=== PATIENT | female | born 1945 | race Hispanic/Latino ===

== ENCOUNTER 2020-12-28 12:37 | Inpatient (IN) | payer MEDICARE ==
[2020-12-28] MEDS ORDERED: SODIUM CHLORIDE 0.9% 1000 ML IV SOLN IV ONE (12:52)
[2020-12-28] MEDS ORDERED: cefTRIAXone/NS 2 GM/100 ML 2 GM/100 ML BAG IV ONE (12:52)
[2020-12-28] MEDS ORDERED: dexAMETHasone 4 MG/ML VIAL IV ONE (12:53)
--- NOTE | 2020-12-28 12:55 | Emergency Department Report ---
ED General Adult HPI - General Chief complaint: Weakness Stated complaint: weakness PUI?: Yes Time Seen by Provider: 12/28/20 12:51 Source: patient, EMS (Verbal report received from emergency medical services. EMS documentation not available at time of chart dictation ), RN notes reviewed, old records reviewed Mode of arrival: Stretcher Limitations: Altered Mental Status, Physical Limitation - History of Present Illness Initial comments: The patient was evaluated in the emergency department for symptoms described in the history of present illness. He/she was evaluated in the context of the global COVID-19 pandemic, which necessitated consideration that the patient might be at risk for infection with the virus that causes COVID-19. Institutional protocols and algorithms that pertain to the evaluation of patients at risk for COVID-19 are in a state of rapid change based on information released by regulatory bodies including the CDC and federal and state organizations. These policies and algorithms were followed during the patient's care in the emergency department. Please note that these policies, procedures and recommendations changed on a rapid basis. The patient is a 75-year-old female. Her past medical history includes hypertension, type 2 diabetes, COPD, stroke with residual left-sided deficit, dysarthria, history of left-sided colitis, and ileus. The patient presents to the ER today with EMS with a complaint of weakness and change in mental status. In addition, the patient was febrile in the field. The patient is awake. She denies physical pain. She follows commands. She moves her right arm and right leg. The patient denies headache, neck pain, chest pain. The patient is confused. She is not accompanied by friends or family at this time for collateral information or additional history. EMS stated to myself that they were activated because the patient was having trouble breathing, was confused and had a fever. It is not known if the patient had a COVID-19 vaccine. -: unknown - Related Data Home Medications Medication Instructions Recorded Confirmed Last Taken Aspirin [Aspirin BABY CHEW TAB] 81 mg PO QDAY 10/15/15 10/15/15 Unknown Colchicine [Colcrys] 0.6 mg PO DAILY 10/15/15 10/15/15 Unknown Lisinopril [Zestril TAB] 2.5 mg PO QDAY 10/15/15 10/15/15 Unknown traZODone [Desyrel] 100 mg PO QHS 10/15/15 10/15/15 Unknown Previous Rx's Medication Instructions Recorded Last Taken Type Insulin NPH, Human [NovoLIN N] 10 unit SQ BID #100 units 10/26/15 Unknown Rx Magnesium Oxide [Mag-Ox] 400 mg PO QDAY #30 tablet 10/26/15 Unknown Rx Ondansetron [Zofran Odt] 4 mg PO Q8H PRN 10 Days tab.rapdis 10/26/15 Unknown Rx polyethylene glycoL 3350 [Miralax 17 gm PO QDAY PRN #30 packet 10/26/15 Unknown Rx 3350] Allergies Allergy/AdvReac Type Severity Reaction Status Date / Time Penicillins Allergy Unknown Verified 12/28/20 14:59 ED Review of Systems ROS: Stated complaint: POSS STROKE Other details as noted in HPI Comment: Unobtainable due to pts medical conditions ED Past Medical Hx - Past Medical History Hx Hypertension: Yes Hx CVA: Yes Hx Congestive Heart Failure: Yes Hx Diabetes: Yes Hx COPD: Yes - Social History Smoking Status: Former Smoker - Medications Home Medications: Home Medications Medication Instructions Recorded Confirmed Last Taken Type Aspirin [Aspirin BABY CHEW TAB] 81 mg PO QDAY 10/15/15 10/15/15 Unknown History Colchicine [Colcrys] 0.6 mg PO DAILY 10/15/15 10/15/15 Unknown History Lisinopril [Zestril TAB] 2.5 mg PO QDAY 10/15/15 10/15/15 Unknown History traZODone [Desyrel] 100 mg PO QHS 10/15/15 10/15/15 Unknown History Insulin NPH, Human [NovoLIN N] 10 unit SQ BID #100 units 10/26/15 Unknown Rx Magnesium Oxide [Mag-Ox] 400 mg PO QDAY #30 tablet 10/26/15 Unknown Rx Ondansetron [Zofran Odt] 4 mg PO Q8H PRN 10 Days tab.rapdis 10/26/15 Unknown Rx polyethylene glycoL 3350 [Miralax 17 gm PO QDAY PRN #30 packet 10/26/15 Unknown Rx 3350] ED Physical Exam - General Limitations: Altered Mental Status, Physical Limitation General appearance: anxious - Head Head exam: Present: atraumatic, normocephalic - Eye Eye exam: Present: normal appearance, EOMI - ENT ENT exam: Present: normal exam, normal orophraynx, mucous membranes moist, no rmal external ear exam - Neck Neck exam: Present: normal inspection, full ROM. Absent: tenderness, meningismus - Respiratory Respiratory exam: Present: respiratory distress, rales, accessory muscle use - Cardiovascular Cardiovascular Exam: Present: normal rhythm, tachycardia, normal heart sounds. Absent: bradycardia, irregular rhythm, systolic murmur, diastolic murmur, rubs, gallop - GI/Abdominal GI/Abdominal exam: Present: soft. Absent: distended, tenderness, guarding, rebound, rigid, pulsatile mass - Extremities Exam Extremities exam: Present: normal inspection, other (2+ pulses noted in the b ilateral upper and lower extremities. There is no palpable cord. negative Homans sign. Muscular compartments are soft. The pelvis is stable.). Absent: pedal edema, calf tenderness - Back Exam Back exam: Present: normal inspection. Absent: tenderness, CVA tenderness (R), CVA tenderness (L), paraspinal tenderness, vertebral tenderness - Neurological Exam Neurological exam: Present: altered (The patient is awake to name. The patient follows commands. The patient does not have meningeal signs), other (There is n o facial droop. The tongue is midline. 4 out of 5 strength right arm and right leg. 3 out of 5 strength left arm and left leg. Sensation intact to light touch and pinch in 4 extremities) - Psychiatric Psychiatric exam: Present: anxious - Skin Skin exam: Present: warm, dry, intact, normal color. Absent: rash ED Course Vital Signs 12/28/20 12/28/20 13:01 13:31 Temperature 100.6 F H Pulse Rate 116 H 92 H Respiratory 18 32 H Rate Blood Pressure 127/77 Blood Pressure 148/69 [Right] O2 Sat by Pulse 92 96 Oximetry - Reevaluation(s) Reevaluation #1: 12/28/20 14:41 Differential diagnosis, including but not limited to: Pneumonia, urinary tract infection, bacteremia, viremia, COVID-19 Assessment and plan: Elderly 75-year-old female, ruling in for systemic inflammatory response syndrome criteria, known history of colitis, with an EMS articulated complaint of shortness of breath, weakness, fever and hypoxia. Place patient on isolation. Administer supplemental oxygen, and start antibiotics and steroids, Decadron, empirically. Obtain CT scan of the brain, and CT scan of the abdomen pelvis given history of colitis. The patient has a history of renal insufficiency. Aggressive IV fluids, straight catheter for urinalysis. Admit patient to the medical service once initial diagnostics have resulted 12/28/20 15:02 CT scan of the brain reviewed and appreciated. CT scan of the abdomen pelvis reviewed and appreciated. Urinalysis pending. Hospital physician, Dr. Libby Feliciano to admit to [facility] [place] ED Medical Decision Making - Lab Data Result diagrams: 12/28/20 13:37 12/28/20 13:37 Vital Signs 12/28/20 12/28/20 13:01 13:31 Temperature 100.6 F H Pulse Rate 116 H 92 H Respiratory 18 32 H Rate Blood Pressure 127/77 Blood Pressure 148/69 [Right] O2 Sat by Pulse 92 96 Oximetry Lab Results 12/28/20 12/28/20 12/28/20 Range/Units 13:37 13:37 13:37 WBC 5.9 (4.5-11.0) K/mm3 RBC 4.02 (3.65-5.03) M/mm3 Hgb 10.8 (10.1-14.3) gm/dl Hct 31.8 (30.3-42.9) % MCV 79 (79-97) fl MCH 27 L (28-32) pg MCHC 34 (30-34) % RDW 17.6 H (13.2-15.2) % Plt Count 261 (140-440) K/mm3 Lymph % (Auto) 5.4 L (13.4-35.0) % [place] % (Auto) 6.2 (0.0-7.3) % Eos % (Auto) 0.2 (0.0-4.3) % Baso % (Auto) 0.2 (0.0-1.8) % Lymph # (Auto) 0.3 L (1.2-5.4) K/mm3 [place] # (Auto) 0.4 (0.0-0.8) K/mm3 Eos # (Auto) 0.0 (0.0-0.4) K/mm3 Baso # (Auto) 0.0 (0.0-0.1) K/mm3 Seg Neutrophils % 88.0 H (40.0-70.0) % Seg Neutrophils # 5.2 (1.8-7.7) K/mm3 APTT 34.2 (24.2-36.6) Sec. D-Dimer 1726.49 H (0-234) ng/mlDDU Sodium 134 L (137-145) mmol/L Potassium 4.9 (3.6-5.0) mmol/L Chloride 95.6 L (98-107) mmol/L Carbon Dioxide 23 (22-30) mmol/L Anion Gap 20 mmol/L BUN 23 H (7-17) mg/dL Creatinine 0.9 (0.6-1.2) mg/dL Estimated GFR > 60 ml/min BUN/Creatinine Ratio 26 % Glucose 198 H (65-100) mg/dL Lactic Acid (0.7-2.0) mmol/L Calcium 8.6 (8.4-10.2) mg/dL Ferritin (10.0-200.0) ng/mL Total Bilirubin 0.70 (0.1-1.2) mg/dL AST 33 (5-40) units/L ALT 11 (7-56) units/L Alkaline Phosphatase 90 (35-129) units/L Troponin T < 0.010 (0.00-0.029) ng/mL Total Protein 7.5 (6.3-8.2) g/dL Albumin 3.6 L (3.9-5) g/dL Albumin/Globulin Ratio 0.9 % 12/28/20 12/28/20 Range/Units 13:37 13:37 WBC (4.5-11.0) K/mm3 RBC (3.65-5.03) M/mm3 Hgb (10.1-14.3) gm/dl Hct (30.3-42.9) % MCV (79-97) fl MCH (28-32) pg MCHC (30-34) % RDW (13.2-15.2) % Plt Count (140-440) K/mm3 Lymph % (Auto) (13.4-35.0) % [place] % (Auto) (0.0-7.3) % Eos % (Auto) (0.0-4.3) % Baso % (Auto) (0.0-1.8) % Lymph # (Auto) (1.2-5.4) K/mm3 [place] # (Auto) (0.0-0.8) K/mm3 Eos # (Auto) (0.0-0.4) K/mm3 Baso # (Auto) (0.0-0.1) K/mm3 Seg Neutrophils % (40.0-70.0) % Seg Neutrophils # (1.8-7.7) K/mm3 APTT (24.2-36.6) Sec. D-Dimer (0-234) ng/mlDDU Sodium (137-145) mmol/L Potassium (3.6-5.0) mmol/L Chloride (98-107) mmol/L Carbon Dioxide (22-30) mmol/L Anion Gap mmol/L BUN (7-17) mg/dL Creatinine (0.6-1.2) mg/dL Estimated GFR ml/min BUN/Creatinine Ratio % Glucose (65-100) mg/dL Lactic Acid 2.10 H* (0.7-2.0) mmol/L Calcium (8.4-10.2) mg/dL Ferritin 868.9 H (10.0-200.0) ng/mL Total Bilirubin (0.1-1.2) mg/dL AST (5-40) units/L ALT (7-56) units/L Alkaline Phosphatase (35-129) units/L Troponin T (0.00-0.029) ng/mL Total Protein (6.3-8.2) g/dL Albumin (3.9-5) g/dL Albumin/Globulin Ratio % - Radiology Data Radiology results: pending, report reviewed, image reviewed CHEST 1 VIEW 12/28/2020 12:30 PM INDICATION / CLINICAL INFORMATION: sepsis. COMPARISON: None available. FINDINGS: SUPPORT DEVICES: None. HEART / MEDIASTINUM: No significant abnormality. LUNGS / PLEURA: No significant pulmonary or pleural abnormality. No pneumothorax. ADDITIONAL FINDINGS: No significant additional findings. IMPRESSION: 1. No acute findings. Signer Name: Lorenzo Carrera MD Signed: 12/28/2020 12:53 PM Workstation Name: [id number] CT BRAIN: 12/28/2020 INDICATION / CLINICAL INFORMATION: ams. COMPARISON: 10/24/2015 FINDINGS: BRAIN/INTRACRANIAL STRUCTURES: Unenhanced CT images of the brain demonstrate no evidence of acute abnormality. Ventricles and sulci are prominent in size, consistent with prominent age-related atrophic change. Extensive chronic white matter hypoattenuation is present in the cerebral hemispheric white matter, consistent with chronic small vessel ischemic change. There is no evidence of acute ischemic injury, hemorrhage, or mass. Focal periventricular lacunar changes are present in the anterior right thalamus, associated with some dystrophic calcification. There is also some dystrophic calcification noted in the floor of the fourth ventricle. Atherosclerotic vascular calcifications are also noted. EXTRACRANIAL STRUCTURES: Un remarkable. IMPRESSION: No acute abnormality. Chronic and age-related changes. No significant change when compared to the prior exam. All CT scans at this location are performed using dose reduction to ALARA by means of automated exposure control. Signer Name: Horacio Blanco MD Signed: 12/28/2020 1:45 PM Workstation Name: [id number] CT ABDOMEN AND PELVIS WITHOUT IV CONTRAST INDICATION: Sepsis, weakness, altered mental. COMPARISON: None available. TECHNIQUE: All CT scans at this facility use dose modulation, automated exposure control, iterative reconstruction or weight based dosing, when appropriate, to reduce radiation dose to as low as reasonably achievable. FINDINGS: Lung Bases: Reticular opacities in the dependent lower lungs may be due to scarring or interstitial lung disease. No acute consolidation is seen. Skeletal System: No acute abnormality. ABDOMEN: Liver: No significant abnormality. Gallbladder: There are several punctate stones layering in the gallbladder. Bile Ducts: No significant abnormality. Pancreas: No significant abnormality. Spleen: No significant abnormality. Adrenals: No significant abnormality. Right Kidney: There is postsurgical change along the lateral cortex of the upper pole. There is a cyst in the mid lateral cortex. No acute finding. Left Kidney: In addition to a simple cyst at the upper pole, there are 2 hyperdense lesions within the mid cortex (axial series 2 images 76-77. The larger, more central measures 1.2 cm. Upper GI tract: No significant abnormality. Lymph Nodes: No significant adenopathy. Aorta: No significant abnormality. Additional Findings: No significant abnormality. PELVIS: Colon: No acute abnormality. Constipation is noted. Urinary Bladder and Distal Ureters: No significant abnormality. Appendix: Not visualized. Lymph Nodes: No significant adenopathy. Additional Findings: Calcified uterine fibroids are noted. IMPRESSION: 1. Within the limitations of non contrast technique, no acute process in the abdomen or pelvis. 2. In addition to simple cysts bilaterally, there are 2 hyperdense lesions within the left kidney. These could be proteinaceous/atypical cysts. Follow-up ultrasound would be useful to confirm that these are cystic and not solid. Signer Name: Mack Villegas MD Signed: 12/28/2020 1:48 PM Workstation Name: [id number] Critical care attestation.: If time is entered above; I have spent that time in minutes in the direct care of this critically ill patient, excluding procedure time. ED Disposition Clinical Impression: Systemic inflammatory response syndrome (SIRS), Suspected 2019 novel coronavirus infection, History of stroke Disposition: ADMITTED INPATIENT Is pt being admited?: Yes Does the pt Need Aspirin: No Condition: Fair
[2020-12-28] MEDS: ACETAMINOPHEN 325 MG TAB PO STA ×2 (13:45→13:50)
--- NOTE | 2020-12-28 13:57 | XRay Report ---
CHEST 1 VIEW 12/28/2020 12:30 PM INDICATION / CLINICAL INFORMATION: sepsis. COMPARISON: None available. FINDINGS: SUPPORT DEVICES: None. HEART / MEDIASTINUM: No significant abnormality. LUNGS / PLEURA: No significant pulmonary or pleural abnormality. No pneumothorax. ADDITIONAL FINDINGS: No significant additional findings. IMPRESSION: 1. No acute findings. Signer Name: Lorenzo Carrera MD Signed: 12/28/2020 1:53 PM Workstation Name: [id number]
[2020-12-28 14:08] LABS: Basophils % (Auto) 0.2 % (0.0-1.8); Eosinophils % (Auto) 0.2 % (0.0-4.3); Hematocrit 31.8 % (30.3-42.9); Hemoglobin 10.8 gm/dl (10.1-14.3); Lymphocytes # (Auto) 0.3 K/mm3 (1.2-5.4); Lymphocytes % (Auto) 5.4 % (13.4-35.0); Mean Corpuscular HGB Conc 34 % (30-34); Mean Corpuscular Volume 79 fl (79-97); Monocytes # (Auto) 0.4 K/mm3 (0.0-0.8); Monocytes % (Auto) 6.2 % (0.0-7.3); Platelet Count 261 K/mm3 (140-440); Red Blood Count 4.02 M/mm3 (3.65-5.03); Red Cell Distribution Width 17.6 % (13.2-15.2)
[2020-12-28 14:17] LABS: Partial Thromboplastin Time 34.2 Sec. (24.2-36.6)
[2020-12-28 14:27] LABS: Alanine Aminotransferase 11 units/L (7-56); Albumin 3.6 g/dL (3.9-5); BUN/Creatinine Ratio 26; Blood Urea Nitrogen 23 mg/dL (7-17); Calcium 8.6 mg/dL (8.4-10.2); Hemolysis Index 0
[2020-12-28] MEDS ORDERED: ACETAMINOPHEN 650 MG RECT SUPP PR ONE (14:38)
--- NOTE | 2020-12-28 14:50 | Cat Scan Report ---
CT BRAIN: 12/28/2020 INDICATION / CLINICAL INFORMATION: ams. COMPARISON: 10/24/2015 FINDINGS: BRAIN/INTRACRANIAL STRUCTURES: Unenhanced CT images of the brain demonstrate no evidence of acute abn ormality. Ventricles and sulci are prominent in size, consistent with prominent age-related atrophic change. Ex tensive chronic white matter hypoattenuation is present in the cerebral hemispheric white matter, con sistent with chronic small vessel ischemic change. There is no evidence of acute ischemic injury, hemorrhage, or mass. Focal periventricular lacunar amanda nges are present in the anterior right thalamus, associated with some dystrophic calcification. There is also some dystrophic calcification noted in the floor of the fourth ventricle. Atherosclerotic vascular calcifications are also noted. EXTRACRANIAL STRUCTURES: Unremarkable. IMPRESSION: No acute abnormality. Chronic and age-related changes. No significant change when compared to the prior exam. All CT scans at this location are performed using dose reduction to ALARA by means of automated expos ure control. Signer Name: Horacio Blanco MD Signed: 12/28/2020 2:45 PM Workstation Name: [id number]
--- NOTE | 2020-12-28 14:52 | Cat Scan Report ---
CT ABDOMEN AND PELVIS WITHOUT IV CONTRAST INDICATION: Sepsis, weakness, altered mental. COMPARISON: None available. TECHNIQUE: All CT scans at this facility use dose modulation, automated exposure control, iterative reconstructi on or weight based dosing, when appropriate, to reduce radiation dose to as low as reasonably achieva ble. FINDINGS: Lung Bases: Reticular opacities in the dependent lower lungs may be due to scarring or interstitial l yonatan disease. No acute consolidation is seen. Skeletal System: No acute abnormality. ABDOMEN: Liver: No significant abnormality. Gallbladder: There are several punctate stones layering in the gallbladder. Bile Ducts: No significant abnormality. Pancreas: No significant abnormality. Spleen: No significant abnormality. Adrenals: No significant abnormality. Right Kidney: There is postsurgical change along the lateral cortex of the upper pole. There is a cys t in the mid lateral cortex. No acute finding. Left Kidney: In addition to a simple cyst at the upper pole, there are 2 hyperdense lesions within th e mid cortex (axial series 2 images 76-77. The larger, more central measures 1.2 cm. Upper GI tract: No significant abnormality. Lymph Nodes: No significant adenopathy. Aorta: No significant abnormality. Additional Findings: No significant abnormality. PELVIS: Colon: No acute abnormality. Constipation is noted. Urinary Bladder and Distal Ureters: No significant abnormality. Appendix: Not visualized. Lymph Nodes: No significant adenopathy. Additional Findings: Calcified uterine fibroids are noted. IMPRESSION: 1. Within the limitations of non contrast technique, no acute process in the abdomen or pelvis. 2. In addition to simple cysts bilaterally, there are 2 hyperdense lesions within the left kidney. T hese could be proteinaceous/atypical cysts. Follow-up ultrasound would be useful to confirm that thes e are cystic and not solid. Signer Name: Mack Villegas MD Signed: 12/28/2020 2:48 PM Workstation Name: [id number]
[2020-12-28 14:59] LABS: C-Reactive Protein 21.4 mg/dL (0.00-1.30)
[2020-12-28 19:48] LABS: Bilirubin,Urine NEG (Negative); Blood,Urine SM (Negative); Color,Urine Yellow (Yellow); Mucus,Urine FEW /HPF; Urobilinogen,Urine < 2.0 mg/dL (<2.0)
[2020-12-28] MEDS ORDERED: ONDANSETRON 4 MG/2 ML INJ IV PRN (22:19)
[2020-12-28] MEDS ORDERED: ACETAMINOPHEN 325 MG TAB PO PRN (22:19)
[2020-12-28] MEDS ORDERED: MORPHINE 2 MG/1 ML INJ IV PRN (22:22)
[2020-12-28] MEDS ORDERED: METOCLOPRAMIDE 10 MG/2 ML INJ IV PRN (22:22)
[2020-12-28] MEDS ORDERED: HYDROmorphone 1 MG/1 ML INJ IV PRN (22:22)
[2020-12-28] MEDS ORDERED: SODIUM CHLORIDE 0.9% 1000 ML 1,000 ML IV SCH (22:30)
--- NOTE | 2020-12-28 22:40 | History and Physical Report ---
History of Present Illness Date of examination: 12/28/20 Date of admission: 12/28/20 15:03 Chief complaint: Altered sensorium for 1 day History of present illness: 75-year-old female with history of insulin-dependent diabetes, hypertension and early dementia sent in by halfway for change in mental status and generalized weakness. Patient was apparently febrile in the field. In the emergency room patient is awake and alert x2. Follows commands moves her both lower extremities and upper extremities. Patient has slurred speech but otherwise answering questions appropriately. Patient is oriented to person and place but not time - Past Medical History --Hypertension: Yes --CVA: Yes --Congestive Heart Failure: Yes --Diabetes: Yes --COPD: Yes - Past surgical history --unknown --Patient unable to elaborate - Social History y Smoking Status: Former Smoker -Family history --unknown --Patient unable to elaborate - Medications Home Medications: Home Medications Medication Instructions Recorded Confirmed Last Taken Type Aspirin [Aspirin BABY CHEW TAB] 81 mg PO QDAY 10/15/15 10/15/15 Unknown History Colchicine [Colcrys] 0.6 mg PO DAILY 10/15/15 10/15/15 Unknown History Lisinopril [Zestril TAB] 2.5 mg PO QDAY 10/15/15 10/15/15 Unknown History traZODone [Desyrel] 100 mg PO QHS 10/15/15 10/15/15 Unknown History Insulin NPH, Human [NovoLIN N] 10 unit SQ BID #100 units 10/26/15 Unknown Rx Magnesium Oxide [Mag-Ox] 400 mg PO QDAY #30 tablet 10/26/15 Unknown Rx Ondansetron [Zofran Odt] 4 mg PO Q8H PRN 10 Days tab.rapdis 10/26/15 Unknown Rx polyethylene glycoL 3350 [Miralax 17 gm PO QDAY PRN #30 packet 10/26/15 Unknown Rx 3350] Review of Systems ROS: Stated complaint: POSS STROKE Other details as noted in HPI Comment: Unobtainable due to pts medical conditions Medications and Allergies Allergies Allergy/AdvReac Type Severity Reaction Status Date / Time Penicillins Allergy Unknown Verified 12/28/20 14:59 Home Medications Medication Instructions Recorded Confirmed Last Taken Type Aspirin [Aspirin BABY CHEW TAB] 81 mg PO QDAY 10/15/15 10/15/15 Unknown History Colchicine [Colcrys] 0.6 mg PO DAILY 10/15/15 10/15/15 Unknown History Lisinopril [Zestril TAB] 2.5 mg PO QDAY 10/15/15 10/15/15 Unknown History traZODone [Desyrel] 100 mg PO QHS 10/15/15 10/15/15 Unknown History Insulin NPH, Human [NovoLIN N] 10 unit SQ BID #100 units 10/26/15 Unknown Rx Magnesium Oxide [Mag-Ox] 400 mg PO QDAY #30 tablet 10/26/15 Unknown Rx Ondansetron [Zofran Odt] 4 mg PO Q8H PRN 10 Days tab.rapdis 10/26/15 Unknown Rx polyethylene glycoL 3350 [Miralax 17 gm PO QDAY PRN #30 packet 10/26/15 Unknown Rx 3350] Exam - Constitutional Vitals: Temp Pulse Resp BP Pulse Ox 97.9 F 72 24 133/71 98 12/28/20 19:12 12/28/20 21:08 12/28/20 21:08 12/28/20 21:08 12/28/20 21:08 General appearance: Present: no acute distress, well-nourished - EENT Eyes: Present: PERRL ENT: hearing intact, clear oral mucosa - Neck Neck: Present: supple, normal ROM - Respiratory Respiratory effort: normal Respiratory: bilateral: CTA - Cardiovascular Heart rate: 78 Rhythm: regular Heart Sounds: Present: S1 & S2. Absent: rub, click - Extremities Extremities: pulses symmetrical, No edema Peripheral Pulses: within normal limits - Abdominal General gastrointestinal: Present: soft, non-tender, non-distended, normal bowel sounds Female genitourinary: Present: normal - Integumentary Integumentary: Present: clear, warm, dry - Musculoskeletal Musculoskeletal: left sided weakness, other (Dysarthric) - Psychiatric Psychiatric: appropriate mood/affect, intact judgment & insight - Neurologic Neurologic: CNII-XII intact, focal deficits (Left-sided weakness present) - Allied Health Allied health notes reviewed: nursing, case management HEART Score - HEART Score History: Slightly suspicious Risk factors: 1-2 risk factors Troponin: Troponin T < 0.010 ng/mL (0.00-0.029) 12/28/20 13:37 Troponin: < normal limit - Critical Actions Critical Actions: 0-3 pts:0.9-1.7%risk of adverse cardiac event.Candidate for discharge Results - Labs CBC & Chem 7: 12/29/20 05:37 12/29/20 05:37 Labs: Laboratory Last Values WBC 5.9 K/mm3 (4.5-11.0) 12/28/20 13:37 RBC 4.02 M/mm3 (3.65-5.03) 12/28/20 13:37 Hgb 10.8 gm/dl (10.1-14.3) 12/28/20 13:37 Hct 31.8 % (30.3-42.9) 12/28/20 13:37 MCV 79 fl (79-97) 12/28/20 13:37 MCH 27 pg (28-32) L 12/28/20 13:37 MCHC 34 % (30-34) 12/28/20 13:37 RDW 17.6 % (13.2-15.2) H 12/28/20 13:37 Plt Count 261 K/mm3 (140-440) 12/28/20 13:37 Lymph % (Auto) 5.4 % (13.4-35.0) L 12/28/20 13:37 [place] % (Auto) 6.2 % (0.0-7.3) 12/28/20 13:37 Eos % (Auto) 0.2 % (0.0-4.3) 12/28/20 13:37 Baso % (Auto) 0.2 % (0.0-1.8) 12/28/20 13:37 Lymph # (Auto) 0.3 K/mm3 (1.2-5.4) L 12/28/20 13:37 [place] # (Auto) 0.4 K/mm3 (0.0-0.8) 12/28/20 13:37 Eos # (Auto) 0.0 K/mm3 (0.0-0.4) 12/28/20 13:37 Baso # (Auto) 0.0 K/mm3 (0.0-0.1) 12/28/20 13:37 Seg Neutrophils % 88.0 % (40.0-70.0) H 12/28/20 13:37 Seg Neutrophils # 5.2 K/mm3 (1.8-7.7) 12/28/20 13:37 APTT 34.2 Sec. (24.2-36.6) 12/28/20 13:37 D-Dimer 1726.49 ng/mlDDU (0-234) H 12/28/20 13:37 Sodium 134 mmol/L (137-145) L 12/28/20 13:37 Potassium 4.9 mmol/L (3.6-5.0) 12/28/20 13:37 Chloride 95.6 mmol/L (98-107) L 12/28/20 13:37 Carbon Dioxide 23 mmol/L (22-30) 12/28/20 13:37 Anion Gap 20 mmol/L 12/28/20 13:37 BUN 23 mg/dL (7-17) H 12/28/20 13:37 Creatinine 0.9 mg/dL (0.6-1.2) 12/28/20 13:37 Estimated GFR > 60 ml/min 12/28/20 13:37 BUN/Creatinine Ratio 26 % 12/28/20 13:37 Glucose 198 mg/dL (65-100) H 12/28/20 13:37 Glucose 203 mg/dL (65-100) H 12/28/20 13:37 POC Glucose 303 mg/dL (70-105) H 12/28/20 22:07 Lactic Acid 0.90 mmol/L (0.7-2.0) 12/28/20 16:02 Calcium 8.6 mg/dL (8.4-10.2) 12/28/20 13:37 Ferritin 868.9 ng/mL (10.0-200.0) H 12/28/20 13:37 Total Bilirubin 0.70 mg/dL (0.1-1.2) 12/28/20 13:37 AST 33 units/L (5-40) 12/28/20 13:37 ALT 11 units/L (7-56) 12/28/20 13:37 Alkaline Phosphatase 90 units/L (35-129) 12/28/20 13:37 Lactate Dehydrogenase 330 units/L (91-180) H 12/28/20 13:37 Troponin T < 0.010 ng/mL (0.00-0.029) 12/28/20 13:37 C-Reactive Protein 21.40 mg/dL (0.00-1.30) H 12/28/20 13:37 Total Protein 7.5 g/dL (6.3-8.2) 12/28/20 13:37 Albumin 3.6 g/dL (3.9-5) L 12/28/20 13:37 Albumin/Globulin Ratio 0.9 % 12/28/20 13:37 Procalcitonin 0.18 ng/mL (<0.15) 12/28/20 13:37 Urine Color Yellow (Yellow) 12/28/20 Unknown Urine Turbidity Clear (Clear) 12/28/20 Unknown Urine pH 5.0 (5.0-7.0) 12/28/20 Unknown Ur Specific [place] 1.012 (1.003-1.030) 12/28/20 Unknown Urine Protein 30 mg/dl mg/dL (Negative) 12/28/20 Unknown Urine Glucose (UA) 50 mg/dL (Negative) 12/28/20 Unknown Urine Ketones 20 mg/dL (Negative) 12/28/20 Unknown Urine Blood Sm (Negative) 12/28/20 Unknown Urine Nitrite Neg (Negative) 12/28/20 Unknown Urine Bilirubin Neg (Negative) 12/28/20 Unknown Urine Urobilinogen < 2.0 mg/dL (<2.0) 12/28/20 Unknown Ur Leukocyte Esterase Neg (Negative) 12/28/20 Unknown Urine WBC (Auto) 4.0 /HPF (0.0-6.0) 12/28/20 Unknown Urine RBC (Auto) 1.0 /HPF (0.0-6.0) 12/28/20 Unknown Urine Mucus Few /HPF 12/28/20 Unknown Short CBC 12/28/20 12/29/20 Range/Units 13:37 05:37 WBC 5.9 4.3 L (4.5-11.0) K/mm3 Hgb 10.8 10.7 (10.1-14.3) gm/dl Hct 31.8 32.4 (30.3-42.9) % Plt Count 261 205 (140-440) K/mm3 BMP 12/28/20 12/28/20 12/29/20 13:37 13:37 05:37 Sodium 134 L 135 L Potassium 4.9 4.6 Chloride 95.6 L 101.1 Carbon Dioxide 23 22 BUN 23 H 19 H Creatinine 0.9 0.8 Glucose 198 H 203 H 302 H Calcium 8.6 8.2 L Cardiac Enzymes 12/28/20 Range/Units 13:37 Troponin T < 0.010 (0.00-0.029) ng/mL Liver Function 12/28/20 12/29/20 Range/Units 13:37 05:37 Total Bilirubin 0.70 0.40 (0.1-1.2) mg/dL AST 33 25 (5-40) units/L ALT 11 11 (7-56) units/L Alkaline Phosphatase 90 92 (35-129) units/L Albumin 3.6 L 3.3 L (3.9-5) g/dL Urine 12/28/20 Range/Units Unknown Urine Color Yellow (Yellow) Urine pH 5.0 (5.0-7.0) Ur Specific [place] 1.012 (1.003-1.030) Urine Protein 30 mg/dl (Negative) mg/dL Urine Glucose (UA) 50 (Negative) mg/dL Microbiology: Microbiology 12/28/20 13:37 Peripheral/Venous Blood Culture - Preliminary Culture in Progress 12/28/20 13:37 Peripheral/Venous Blood Culture - Preliminary Culture in Progress - Imaging and Cardiology Chest x-ray: report reviewed CT scan - abdomen: report reviewed CT scan - chest: report reviewed Imaging and Cardiology: Chest x-ray No acute findings CT head No acute findings CT abdomen no acute abnormalities No acute findings Assessment and Plan Advance Directives: Yes (Full code) VTE prophylaxis?: Chemical Plan of care discussed with patient/family: Yes - Patient Problems (1) Acute encephalopathy Current Visit: Yes Status: Acute Plan to address problem: Probably secondary to fever and systemic inflammatory response syndrome Patient has dysarthria but no focal deficits except for residual left-sided weakness Stroke unlikely IV fluids Covid to be ruled out Neuro consult requested MR brain requested (2) Systemic inflammatory response syndrome (SIRS) Current Visit: Yes Status: Acute Plan to address problem: All inflammatory markers are elevated IV Decadron initiated No antibiotics initiated Coronavirus PCR to be excluded (3) Suspected 2019 novel coronavirus infection Current Visit: Yes Status: Acute Plan to address problem: Check coronavirus PCR ID consult if necessary (4) Hypertension Current Visit: Yes Status: Chronic Qualifiers: Hypertension type: primary hypertension Qualified Code(s): I10 - Essential (primary) hypertension Plan to address problem: Continue antihypertensives and adjust medications (5) T2DM (type 2 diabetes mellitus) Current Visit: Yes Status: Acute Qualifiers: Diabetes mellitus chcf insulin use: with termite treater use Plan to address problem: Continue home insulin and coverage Check hemoglobin A1c (6) History of stroke Current Visit: Yes Status: Chronic Plan to address problem: Supportive care and physical therapy (7) DVT prophylaxis Current Visit: Yes Status: Acute Plan to address problem: On anticoagulation and GI prophylaxis
[2020-12-28] MEDS ORDERED: DEXTROSE 50% IN WATER (25GM) 50 ML SYRINGE IV PRN (22:48)
[2020-12-28] MEDS ORDERED: AZITHROMYCIN/NS 500 MG/250 ML 500 MG/250 ML BAG IV SCH (23:00)
[2020-12-29 06:16] LABS: Basophils % (Auto) 0.4 % (0.0-1.8); Eosinophils % (Auto) 0.8 % (0.0-4.3); Hematocrit 32.4 % (30.3-42.9); Hemoglobin 10.7 gm/dl (10.1-14.3); Lymphocytes # (Auto) 0.4 K/mm3 (1.2-5.4); Lymphocytes % (Auto) 9.5 % (13.4-35.0); Mean Corpuscular HGB Conc 33 % (30-34); Mean Corpuscular Volume 80 fl (79-97); Monocytes # (Auto) 0.4 K/mm3 (0.0-0.8); Monocytes % (Auto) 9.8 % (0.0-7.3); Platelet Count 205 K/mm3 (140-440); Red Blood Count 4.04 M/mm3 (3.65-5.03); Red Cell Distribution Width 17.2 % (13.2-15.2)
[2020-12-29 06:36] LABS: Alanine Aminotransferase 11 units/L (7-56); Albumin 3.3 g/dL (3.9-5); BUN/Creatinine Ratio 24; Blood Urea Nitrogen 19 mg/dL (7-17); Calcium 8.2 mg/dL (8.4-10.2); Hemolysis Index 0
[2020-12-29] MEDS ORDERED: INSULIN NPH, HUMAN 100 UNIT/1 ML SUB-Q SCH (08:00)
[2020-12-29] MEDS: INSULIN LISPRO 100 UNIT/ML SUB-Q SCH ×3 (08:17→16:22)
[2020-12-29] MEDS ORDERED: dexAMETHasone 4 MG/ML VIAL IV SCH (09:00)
--- NOTE | 2020-12-29 09:05 | Consultation ---
History of Present Illness Consult date: 12/29/20 Reason for Consult: altered mentation for one day History of present illness: Altered sensorium for 1 day History of present illness: 75-year-old female with history of insulin-dependent diabetes, hypertension and early dementia [facility] in mental status and generalized weakness. Patient was apparently febrile in the field. In the emergency room patient is awake and alert x2. Follows commands moves her both lower extremities and upper extremities. Patient has slurred speech but otherwise answering questions appropriately. Patient is oriented to person and place but not time In ER CT brain is unremarkable inflammatory markers are elevated [ lactic acid,feritin,D-Dimmer,CRP] COVID-19 titer is pending - Past Medical History --Hypertension: Yes --CVA: Yes --Congestive Heart Failure: Yes --Diabetes: Yes --COPD: Yes - Past surgical history --unknown --Patient unable to elaborate - Social History y Smoking Status: Former Smoker -Family history --unknown --Patient unable to elaborate - Medications Home Medications: Home Medications Medication Instructions Recorded Confirmed Last Taken Type Aspirin [Aspirin BABY CHEW TAB] 81 mg PO QDAY 10/15/15 10/15/15 Unknown History Colchicine [Colcrys] 0.6 mg PO DAILY 10/15/15 10/15/15 Unknown History Lisinopril [Zestril TAB] 2.5 mg PO QDAY 10/15/15 10/15/15 Unknown History traZODone [Desyrel] 100 mg PO QHS 10/15/15 10/15/15 Unknown History Insulin NPH, Human [NovoLIN N] 10 unit SQ BID #100 units 10/26/15 Unknown Rx Magnesium Oxide [Mag-Ox] 400 mg PO QDAY #30 tablet 10/26/15 Unknown Rx Ondansetron [Zofran Odt] 4 mg PO Q8H PRN 10 Days tab.rapdis 10/26/15 Unknown Rx polyethylene glycoL 3350 [Miralax 17 gm PO QDAY PRN #30 packet 10/26/15 Unknown Rx 3350] Review of Systems ROS: Stated complaint: POSS STROKE Other details as noted in HPI Comment: Unobtainable due to pts medical conditions Medications and Allergies Allergies Allergy/AdvReac Type Severity Reaction Status Date / Time Penicillins Allergy Unknown Verified 12/28/20 14:59 Home Medications Medication Instructions Recorded Confirmed Last Taken Type Aspirin [Aspirin BABY CHEW TAB] 81 mg PO QDAY 10/15/15 10/15/15 Unknown History Colchicine [Colcrys] 0.6 mg PO DAILY 10/15/15 10/15/15 Unknown History Lisinopril [Zestril TAB] 2.5 mg PO QDAY 10/15/15 10/15/15 Unknown History traZODone [Desyrel] 100 mg PO QHS 10/15/15 10/15/15 Unknown History Insulin NPH, Human [NovoLIN N] 10 unit SQ BID #100 units 10/26/15 Unknown Rx Magnesium Oxide [Mag-Ox] 400 mg PO QDAY #30 tablet 10/26/15 Unknown Rx Ondansetron [Zofran Odt] 4 mg PO Q8H PRN 10 Days tab.rapdis 10/26/15 Unknown Rx polyethylene glycoL 3350 [Miralax 17 gm PO QDAY PRN #30 packet 10/26/15 Unknown Rx 3350] Medications and Allergies Allergies Allergy/AdvReac Type Severity Reaction Status Date / Time Penicillins Allergy Unknown Verified 12/28/20 14:59 Home Medications Medication Instructions Recorded Confirmed Last Taken Type Aspirin [Aspirin BABY CHEW TAB] 81 mg PO QDAY 10/15/15 10/15/15 Unknown History Colchicine [Colcrys] 0.6 mg PO DAILY 10/15/15 10/15/15 Unknown History Lisinopril [Zestril TAB] 2.5 mg PO QDAY 10/15/15 10/15/15 Unknown History traZODone [Desyrel] 100 mg PO QHS 10/15/15 10/15/15 Unknown History Insulin NPH, Human [NovoLIN N] 10 unit SQ BID #100 units 10/26/15 Unknown Rx Magnesium Oxide [Mag-Ox] 400 mg PO QDAY #30 tablet 10/26/15 Unknown Rx Ondansetron [Zofran Odt] 4 mg PO Q8H PRN 10 Days tab.rapdis 10/26/15 Unknown Rx polyethylene glycoL 3350 [Miralax 17 gm PO QDAY PRN #30 packet 10/26/15 Unknown Rx 3350] Active Meds: Active Medications Acetaminophen (Acetaminophen 325 Mg Tab) 650 mg PO Q4H PRN PRN Reason: Pain MILD(1-3)/Fever >100.5/[place] Aspirin (Aspirin 81 Mg Tab Chew) 81 mg PO QDAY [facility] Dexamethasone (Dexamethasone 4 Mg/Ml Vial) 8 mg IV Q24HR [facility] Stop: 01/06/21 10:01 Dextrose (Dextrose 50% In Water (25gm) 50 Ml Syringe) 0 ml IV Q30MIN PRN; Protocol PRN Reason: Hypoglycemia Famotidine (Famotidine 20 Mg/2 Ml Inj) 20 mg IV BID [facility] Heparin Sodium (Porcine) (Heparin 5,000 Unit/1 Ml Vial) 5,000 unit SUB-Q Q12HR [facility] Hydromorphone HCl (Hydromorphone 1 Mg/1 Ml Inj) 0.5 mg IV Q3H PRN PRN Reason: Pain , Severe (7-10) Sodium Chloride (Nacl 0.9% 1000 Ml) 1,000 mls @ 100 mls/hr IV DIRECT [facility] Stop: 12/29/20 10:00 Azithromycin (Zithromax/Ns) 500 mg in 250 mls @ 250 mls/hr IV Q24HR [facility] Stop: 01/01/21 10:59 Last Admin: 12/28/20 23:14 Dose: 250 mls/hr Documented by: Ceftriaxone Sodium (Rocephin/Ns 2 Gm/100 Ml) 2 gm in 100 mls @ 200 mls/hr IV Q24HR [facility]; Protocol Stop: 01/01/21 10:29 Insulin Human Lispro (Insulin Lispro 100 Unit/Ml) 0 unit SUB-Q ACHS [facility]; Protocol Last Admin: 12/29/20 08:17 Dose: 3 unit Documented by: Lisinopril (Lisinopril 5 Mg Tab) 2.5 mg PO QDAY [facility] Magnesium Oxide (Magnesium Oxide 400 Mg Tab) 400 mg PO QDAY [facility] Metoclopramide HCl (Metoclopramide 10 Mg/2 Ml Inj) 10 mg IV Q6H PRN PRN Reason: Nausea And Vomiting Morphine Sulfate (Morphine 2 Mg/1 Ml Inj) 2 mg IV Q4H PRN PRN Reason: Pain, Moderate (4-6) Ondansetron HCl (Ondansetron 4 Mg/2 Ml Inj) 4 mg IV Q8H PRN PRN Reason: Nausea And Vomiting Sodium Chloride (Sodium Chloride 0.9% 10 Ml Flush Syringe) 10 ml IV BID [facility] Last Admin: 12/28/20 23:10 Dose: 10 ml Documented by: Sodium Chloride (Sodium Chloride 0.9% 10 Ml Flush Syringe) 10 ml IV PRN PRN PRN Reason: LINE FLUSH Last Admin: 12/28/20 23:10 Dose: 10 ml Documented by: Trazodone HCl (Trazodone 100 Mg Tab) 100 mg PO QHS [facility] Physical Examination - Vital Signs Vital Signs: Vital Signs Temp Pulse Resp BP Pulse Ox 100.6 F H 116 H 18 148/69 92 12/28/20 13:01 12/28/20 13:01 12/28/20 13:01 12/28/20 13:01 12/28/20 13:01 - Constitutional General appearance: comfortable - EENT EENT: Present: PERRL, mucous membranes moist - Respiratory Respiratory: Present: chest non-tender, lungs clear, rhonchi - Cardiovascular Cardiovascular: Present: regular rate, normal S1, normal S2 Extremities: Present: no peripheral edema bilatateraly, no clubbing, cyanosis - Gastrointestinal Gastrointestinal: Present: normoactive bowel sounds - Integumentary Integumentary: Present: normal - Neurologic Cranial nerve examination: anosmic, PERRL, EOMI, intact Speech examination: intact Sensorimotor examination: intact Detailed motor examination: grossly full strength in - Psychiatric Psychiatric: Present: other (she is disorieted to place and date not remmeber her age or birthdate.) - Level of Consciousness 1a. Level of Consciousness: alert/keenly responsive - LOC Questions 1b. LOC Questions: answers no questions correctly - LOC Command 1c. LOC Commands: performs tasks correctly - Best Gaze 2. Best Gaze: normal - Visual 3. Visual: no visual loss - Facial Palsy 4. Facial Palsy: normal symmetrical movement - Motor Arm 5a. Motor Arm Left: no drift 5b. Motor Arm Right: no drift - Motor Leg 6a. Motor Leg Left: no drift 6b. Motor Leg Right: no drift - Limb Ataxia 7. Limb Ataxia: absent - Sensory 8. Sensory: normal - Best Language 9. Best Language: no aphasia - Dysarthria 10. Dysarthria: normal - Extinction and Inattention 11. Extinction/Inattention: no abnormality - Scoring Total Score: 2 Stroke Severity: Minor Stroke Results - Laboratory Findings CBC and BMP: 12/29/20 05:37 12/29/20 05:37 Abnormal Lab Findings: Abnormal Labs 12/28/20 12/28/20 12/28/20 13:37 13:37 13:37 WBC MCH 27 L RDW 17.6 H Lymph % (Auto) 5.4 L [place] % (Auto) Lymph # (Auto) 0.3 L Seg Neutrophils % 88.0 H D-Dimer 1726.49 H Sodium 134 L Chloride 95.6 L BUN 23 H Glucose 198 H POC Glucose Lactic Acid Calcium Ferritin Lactate Dehydrogenase C-Reactive Protein Albumin 3.6 L 12/28/20 12/28/20 12/28/20 13:37 13:37 13:37 WBC MCH RDW Lymph % (Auto) [place] % (Auto) Lymph # (Auto) Seg Neutrophils % D-Dimer Sodium Chloride BUN Glucose 203 H POC Glucose Lactic Acid 2.10 H* Calcium Ferritin 868.9 H Lactate Dehydrogenase 330 H C-Reactive Protein 21.40 H Albumin 12/28/20 12/29/20 12/29/20 22:07 05:37 05:37 WBC 4.3 L MCH 27 L RDW 17.2 H Lymph % (Auto) 9.5 L [place] % (Auto) 9.8 H Lymph # (Auto) 0.4 L Seg Neutrophils % 79.5 H D-Dimer Sodium 135 L Chloride BUN 19 H Glucose 302 H POC Glucose 303 H Lactic Acid Calcium 8.2 L Ferritin Lactate Dehydrogenase C-Reactive Protein Albumin 3.3 L 12/29/20 12/29/20 06:32 08:05 WBC MCH RDW Lymph % (Auto) [place] % (Auto) Lymph # (Auto) Seg Neutrophils % D-Dimer Sodium Chloride BUN Glucose POC Glucose 263 H 254 H Lactic Acid Calcium Ferritin Lactate Dehydrogenase C-Reactive Protein Albumin Assessment and Plan Assessment and Plan Advance Directives: Yes (Full code) VTE prophylaxis?: Chemical Plan of care discussed with patient/family: Yes - Patient Problems # Acute encephalopathy Probably secondary to fever and systemic inflammatory response syndrome Patient had no focal deficits -Ct Brain is unremarkable -MRI brain is pending -IV fluids -Covid to be ruled out -ASA and SQ heparine # Systemic inflammatory response syndrome (SIRS) -All inflammatory markers are elevated -IV Decadron initiated -No antibiotics initiated -Coronavirus PCR is pending # Suspected 2019 novel coronavirus infection -Check coronavirus PCR -ID consult if necessary # Hypertension -Continue antihypertensives and adjust medications # T2DM (type 2 diabetes mellitus) -Continue home insulin and coverage -Check hemoglobin A1c (6) History of stroke -Supportive care and physical therapy - Maintain ASA 325 mg daily and Lipitor 40 mg -LDL, and A1C are pending -PT/ST evaluate. -MRI brain w/o Gd # DVT prophylaxis -On anticoagulation and GI prophylaxis will follow
[2020-12-29] MEDS ORDERED: FAMOTIDINE 20 MG/2 ML INJ IV SCH (10:00)
[2020-12-29] MEDS ORDERED: cefTRIAXone/NS 2 GM/100 ML 2 GM/100 ML BAG IV SCH ×2 (10:00→22:00)
--- NOTE | 2020-12-29 14:27 | Progress Note ---
Assessment and Plan -- Acute encephalopathy Probably secondary to COVID-19 infection Patient has dysarthria but no focal deficits except for residual left-sided weakness Stroke unlikely, IV fluids Initiated Covid protocol Neuro consult requested MR brain requested -- Systemic inflammatory response syndrome (SIRS) All inflammatory markers are elevated IV Decadron initiated Positive for COVID-19, Covid protocol initiated -- 2019 novel coronavirus infection Initiate Decadron and remdesivir ID consult, follow inflammatory markers --Acute hypoxic respiratory failure due to COVID-19 pneumonia Empiric antibiotics, albuterol inhalers -- Hypertension Continue antihypertensives and adjust medications -- T2DM (type 2 diabetes mellitus) Continue home insulin and coverage follow hemoglobin A1c -- History of stroke Supportive care and physical therapy -- DVT prophylaxis On anticoagulation and GI prophylaxis Daily clinical course: 12/29/20: Positive for COVID-19, Initiate Covid protocol, consult ID Subjective Date of service: 12/29/20 Interval history: Patient seen and examined. Medical records and medication list reviewed. No acute event overnight noted by the RN. Patient on nasal cannula O2 Discussed plan of care at bedside with patient and with RN. Objective - Exam Narrative Exam: Limited physical exam due to COVID-19 pandemic to minimize transmission of the disease and to preserve PPE. Vital reviewed and stable. GENERAL: well-developed elderly white female lying on bed appeared to be in no discomfort. HEENT: Normocephalic. Atraumatic. NECK: Supple. CHEST/LUNGS: breathing nonlabored. On nasal cannula O2 HEART/CARDIOVASCULAR: Heart rate stable on telemetry ABDOMEN: Visibly not distended SKIN: There is no rash NEURO: Follows command. MUSCULOSKELETAL: No joint effusion EXTRIMITY: No swelling, no cyanosis or clubbing. PSYCH: Cooperative. - Constitutional Vitals: Vital Signs - 12hr 12/29/20 12/29/20 12/29/20 02:41 04:29 05:52 Temperature 98 F Pulse Rate 61 70 74 Respiratory 26 H 17 22 Rate Blood Pressure 130/62 156/58 154/74 [Right] O2 Sat by Pulse 98 97 97 Oximetry 12/29/20 12/29/20 07:26 11:49 Temperature 103.7 F H Pulse Rate 100 H Respiratory 22 21 Rate Blood Pressure 163/76 133/77 [Right] O2 Sat by Pulse 94 94 Oximetry - Labs CBC & Chem 7: 12/29/20 05:37 12/31/20 05:40 Labs: Abnormal lab results 12/28/20 12/28/20 12/28/20 Range/Units 13:37 13:37 13:37 WBC (4.5-11.0) K/mm3 MCH (28-32) pg RDW (13.2-15.2) % Lymph % (Auto) (13.4-35.0) % [place] % (Auto) (0.0-7.3) % Lymph # (Auto) (1.2-5.4) K/mm3 Seg Neutrophils % (40.0-70.0) % D-Dimer 1726.49 H (0-234) ng/mlDDU Sodium 134 L (137-145) mmol/L Chloride 95.6 L (98-107) mmol/L BUN 23 H (7-17) mg/dL Glucose 198 H (65-100) mg/dL POC Glucose (70-105) mg/dL Lactic Acid 2.10 H* (0.7-2.0) mmol/L Calcium (8.4-10.2) mg/dL Ferritin (10.0-200.0) ng/mL Lactate Dehydrogenase (91-180) units/L C-Reactive Protein (0.00-1.30) mg/dL Albumin 3.6 L (3.9-5) g/dL Coronavirus (PCR) (Negative) 12/28/20 12/28/20 12/28/20 Range/Units 13:37 13:37 22:07 WBC (4.5-11.0) K/mm3 MCH (28-32) pg RDW (13.2-15.2) % Lymph % (Auto) (13.4-35.0) % [place] % (Auto) (0.0-7.3) % Lymph # (Auto) (1.2-5.4) K/mm3 Seg Neutrophils % (40.0-70.0) % D-Dimer (0-234) ng/mlDDU Sodium (137-145) mmol/L Chloride (98-107) mmol/L BUN (7-17) mg/dL Glucose 203 H (65-100) mg/dL POC Glucose 303 H (70-105) mg/dL Lactic Acid (0.7-2.0) mmol/L Calcium (8.4-10.2) mg/dL Ferritin 868.9 H (10.0-200.0) ng/mL Lactate Dehydrogenase 330 H (91-180) units/L C-Reactive Protein 21.40 H (0.00-1.30) mg/dL Albumin (3.9-5) g/dL Coronavirus (PCR) (Negative) 12/29/20 12/29/20 12/29/20 Range/Units 05:37 05:37 06:32 WBC 4.3 L (4.5-11.0) K/mm3 MCH 27 L (28-32) pg RDW 17.2 H (13.2-15.2) % Lymph % (Auto) 9.5 L (13.4-35.0) % [place] % (Auto) 9.8 H (0.0-7.3) % Lymph # (Auto) 0.4 L (1.2-5.4) K/mm3 Seg Neutrophils % 79.5 H (40.0-70.0) % D-Dimer (0-234) ng/mlDDU Sodium 135 L (137-145) mmol/L Chloride (98-107) mmol/L BUN 19 H (7-17) mg/dL Glucose 302 H (65-100) mg/dL POC Glucose 263 H (70-105) mg/dL Lactic Acid (0.7-2.0) mmol/L Calcium 8.2 L (8.4-10.2) mg/dL Ferritin (10.0-200.0) ng/mL Lactate Dehydrogenase (91-180) units/L C-Reactive Protein (0.00-1.30) mg/dL Albumin 3.3 L (3.9-5) g/dL Coronavirus (PCR) (Negative) 12/29/20 12/29/20 12/29/20 Range/Units 08:00 08:05 11:43 WBC (4.5-11.0) K/mm3 MCH (28-32) pg RDW (13.2-15.2) % Lymph % (Auto) (13.4-35.0) % [place] % (Auto) (0.0-7.3) % Lymph # (Auto) (1.2-5.4) K/mm3 Seg Neutrophils % (40.0-70.0) % D-Dimer (0-234) ng/mlDDU Sodium (137-145) mmol/L Chloride (98-107) mmol/L BUN (7-17) mg/dL Glucose (65-100) mg/dL POC Glucose 254 H 212 H (70-105) mg/dL Lactic Acid (0.7-2.0) mmol/L Calcium (8.4-10.2) mg/dL Ferritin (10.0-200.0) ng/mL Lactate Dehydrogenase (91-180) units/L C-Reactive Protein (0.00-1.30) mg/dL Albumin (3.9-5) g/dL Coronavirus (PCR) Positive A (Negative) HEART Score - HEART Score Risk factors: 1-2 risk factors Troponin: Troponin T < 0.010 ng/mL (0.00-0.029) 12/28/20 13:37 Troponin: < normal limit - Critical Actions Critical Actions: 0-3 pts:0.9-1.7%risk of adverse cardiac event.Candidate for discharge
[2020-12-29] MEDS ORDERED: REMDESIVIR 200 MG in SODIUM CHLORIDE 0.9% 250ML 250 ML IV ONE (16:00)
[2020-12-29] MEDS: SODIUM CHLORIDE 0.9% 50 ML IVPB IV SCH (16:23)
[2020-12-29] MEDS: HEPARIN 5,000 UNIT/1 ML VIAL SUB-Q SCH (21:38)
[2020-12-29] MEDS: traZODone 100 MG TAB PO SCH (21:39)
[2020-12-29] MEDS ORDERED: AZITHROMYCIN/NS 500 MG/250 ML 500 MG/250 ML BAG IV SCH (22:00)
[2020-12-30] MEDS: INSULIN LISPRO 100 UNIT/ML SUB-Q SCH ×4 (01:39→17:32)
[2020-12-30] MEDS: FAMOTIDINE 20 MG TAB PO SCH ×3 (05:11→22:04)
[2020-12-30] MEDS: ASPIRIN 81 MG TAB CHEW PO SCH (09:17)
[2020-12-30] MEDS: LISINOPRIL 5 MG TAB PO SCH (09:17)
[2020-12-30] MEDS: COLCHICINE 0.6 MG TAB PO SCH (09:18)
[2020-12-30] MEDS: dexAMETHasone 4 MG/ML VIAL IV SCH (09:18)
[2020-12-30] MEDS: MAGNESIUM OXIDE 400 MG TAB PO SCH (09:18)
[2020-12-30] MEDS: HEPARIN 5,000 UNIT/1 ML VIAL SUB-Q SCH ×3 (09:18→22:19)
[2020-12-30 09:58] LABS: Alanine Aminotransferase 11 units/L (7-56); BUN/Creatinine Ratio 20; Blood Urea Nitrogen 16 mg/dL (7-17); Calcium 8.3 mg/dL (8.4-10.2); Hemolysis Index 15
--- NOTE | 2020-12-30 11:49 | Electrocardiograph Report ---
[facility] Test Date: 2020-12-30 Test Time: 07:57:29 Pat Name: SHANNAN BUSH Department: Room: A372 1 Gender: F Registered Nurse Hh Case Manager: LILLY : 1945 Requested By: JOSHUA BAUTISTA Order Number: [id number] Reading MD: Carlito Shane Measurements Intervals [place] Rate: 80 P: 51 AL: 146 QRS: -45 QRSD: 94 T: 15 QT: 394 QTc: 454 Interpretive Statements Sinus rhythm Left anterior fascicular block Low voltage, precordial leads No previous ECG available for comparison Electronically Signed On 12-30-2020 11:49:02 EDT by Carlito Shane
[2020-12-30] MEDS: CHOLECALCIFEROL (VIT D3) 5,000 UNIT TAB PO SCH (12:49)
[2020-12-30] MEDS: ZINC SULFATE 220 MG CAP PO SCH ×2 (12:49→22:05)
[2020-12-30] MEDS: ASCORBIC ACID 500 MG TAB PO SCH ×2 (12:50→22:05)
--- NOTE | 2020-12-30 14:51 | Consultation ---
History of Present Illness - Reason for Consult Consult date: 12/30/20 - History of Present Illness 75-year-old female past medical history diabetes, hypertension, dementia [facility] due to change in mental status and generalized weakness. She was found to be febrile on transport over. Answer questions appropriately on admission, was moving all extremities. Febrile to 103 points with a white count of 4.3. Covid positive. Normal renal function, normal procalcitonin. Cultures all no growth so far. Currently on 3 L nasal cannula. Imaging personally reviewed: Chest x-ray: No acute findings CT abdomen pelvis: No acute findings Review of systems: Deferred to reduce to the risk of transmission of COVID-19 Medications and Allergies Allergies Allergy/AdvReac Type Severity Reaction Status Date / Time Penicillins Allergy Unknown Verified 12/28/20 14:59 Home Medications Medication Instructions Recorded Confirmed Last Taken Type Aspirin [Aspirin BABY CHEW TAB] 81 mg PO QDAY 10/15/15 12/29/20 Unknown History Colchicine [Colcrys] 0.6 mg PO DAILY 10/15/15 12/29/20 Unknown History Lisinopril [Zestril TAB] 2.5 mg PO QDAY 10/15/15 12/29/20 Unknown History traZODone [Desyrel] 100 mg PO QHS 10/15/15 12/29/20 Unknown History Insulin NPH, Human [NovoLIN N] 10 unit SQ BID #100 units 10/26/15 12/29/20 Unknown Rx Magnesium Oxide [Mag-Ox] 400 mg PO QDAY #30 tablet 10/26/15 12/29/20 Unknown Rx Ondansetron [Zofran Odt] 4 mg PO Q8H PRN 10 Days tab.rapdis 10/26/15 12/29/20 Unknown Rx polyethylene glycoL 3350 [Miralax 17 gm PO QDAY PRN #30 packet 10/26/15 12/29/20 Unknown Rx 3350] Active Meds: Active Medications Acetaminophen (Acetaminophen 325 Mg Tab) 650 mg PO Q4H PRN PRN Reason: Pain MILD(1-3)/Fever >100.5/[place] Ascorbic Acid (Ascorbic Acid 500 Mg Tab) 1,000 mg PO BID [facility] Last Admin: 12/30/20 12:50 Dose: 1,000 mg Documented by: Aspirin (Aspirin 81 Mg Tab Chew) 81 mg PO QDAY [facility] Last Admin: 12/30/20 09:17 Dose: 81 mg Documented by: Cholecalciferol (Cholecalciferol (Vit D3) 5,000 Unit Tab) 5,000 unit PO DAILY [facility] Last Admin: 12/30/20 12:49 Dose: 5,000 unit Documented by: Colchicine (Colchicine 0.6 Mg Tab) 0.6 mg PO DAILY [facility] Last Admin: 12/30/20 09:18 Dose: 0.6 mg Documented by: Dexamethasone (Dexamethasone 4 Mg/Ml Vial) 8 mg IV Q24HR [facility] Stop: 01/06/21 10:01 Last Admin: 12/30/20 09:18 Dose: 8 mg Documented by: Dextrose (Dextrose 50% In Water (25gm) 50 Ml Syringe) 0 ml IV Q30MIN PRN; Protocol PRN Reason: Hypoglycemia Famotidine (Famotidine 20 Mg Tab) 20 mg PO BID [facility] Last Admin: 12/30/20 09:17 Dose: 20 mg Documented by: Heparin Sodium (Porcine) (Heparin 5,000 Unit/1 Ml Vial) 5,000 unit SUB-Q Q12HR [facility] Last Admin: 12/30/20 09:18 Dose: 5,000 unit Documented by: Hydromorphone HCl (Hydromorphone 1 Mg/1 Ml Inj) 0.5 mg IV Q3H PRN PRN Reason: Pain , Severe (7-10) REMDESIVIR 100 mg/ Sodium (Chloride) 250 mls @ 500 mls/hr IV Q24HR@2100 [facility] Stop: 01/02/21 21:29 Insulin Human Lispro (Insulin Lispro 100 Unit/Ml) 0 unit SUB-Q ACHS [facility]; Protocol Last Admin: 12/30/20 12:49 Dose: 4 unit Documented by: Lisinopril (Lisinopril 5 Mg Tab) 2.5 mg PO QDAY [facility] Last Admin: 12/30/20 09:17 Dose: 2.5 mg Documented by: Magnesium Oxide (Magnesium Oxide 400 Mg Tab) 400 mg PO QDAY [facility] Last Admin: 12/30/20 09:18 Dose: 400 mg Documented by: Metoclopramide HCl (Metoclopramide 10 Mg/2 Ml Inj) 10 mg IV Q6H PRN PRN Reason: Nausea And Vomiting Morphine Sulfate (Morphine 2 Mg/1 Ml Inj) 2 mg IV Q4H PRN PRN Reason: Pain, Moderate (4-6) Ondansetron HCl (Ondansetron 4 Mg/2 Ml Inj) 4 mg IV Q8H PRN PRN Reason: Nausea And Vomiting Sodium Chloride (Sodium Chloride 0.9% 10 Ml Flush Syringe) 10 ml IV BID [facility] Last Admin: 12/30/20 09:19 Dose: 10 ml Documented by: Sodium Chloride (Sodium Chloride 0.9% 10 Ml Flush Syringe) 10 ml IV PRN PRN PRN Reason: LINE FLUSH Last Admin: 12/28/20 23:10 Dose: 10 ml Documented by: Sodium Chloride (Sodium Chloride 0.9% 50 Ml Ivpb) 50 ml IV Q24HR@2100 [facility] Stop: 01/02/21 21:01 Last Admin: 12/29/20 16:23 Dose: 50 ml Documented by: Trazodone HCl (Trazodone 100 Mg Tab) 100 mg PO QHS [facility] Last Admin: 12/29/20 21:39 Dose: 100 mg Documented by: Zinc Sulfate (Zinc Sulfate 220 Mg Cap) 220 mg PO BID [facility] Last Admin: 12/30/20 12:49 Dose: 220 mg Documented by: Physical Examination - Physical Exam Narrative exam: Physical exam deferred to reduce risk of transmission of COVID-19. Please refer to primary team's note. - Constitutional Vitals: Vital Signs Temp Pulse Resp BP Pulse Ox 99.0 F 81 18 120/61 99 12/30/20 05:11 12/30/20 05:11 12/30/20 05:11 12/30/20 05:11 12/30/20 05:11 Temperature -Last 24 Hours Temperature 99.0 F Temperature 97.8 F Temperature 98.1 F Results - Labs CBC & Chem 7: 12/29/20 05:37 12/30/20 08:52 Labs: Abnormal lab results 12/29/20 12/30/20 12/30/20 Range/Units 16:14 08:33 08:52 Sodium 133 L (137-145) mmol/L Carbon Dioxide 20 L (22-30) mmol/L Glucose 285 H (65-100) mg/dL POC Glucose 257 H 267 H (70-105) mg/dL Calcium 8.3 L (8.4-10.2) mg/dL Albumin 3.0 L (3.9-5) g/dL 12/30/20 Range/Units 11:44 Sodium (137-145) mmol/L Carbon Dioxide (22-30) mmol/L Glucose (65-100) mg/dL POC Glucose 332 H (70-105) mg/dL Calcium (8.4-10.2) mg/dL Albumin (3.9-5) g/dL Assessment and Plan Cultures: Blood culture no growth so far Urine culture no growth so far A/P: 75-year-old female past medical history diabetes, hypertension, dementia #COVID-19: no PNA seen on the CXR, however is requiring 3L O2. Likely causing her weakness and light-headedness. #Acute hypoxemic respiratory failure: Likely secondary to COVID-19 infection. Currently on 3L NC #Diabetes: tight glycemic control for best outcomes. Recs: -Dexamethasone 6 mg IV/PO daily for 10 days -Remdesivir 200 mg IV q day x 1 followed by 100 mg IV q day x 4 days -Obtain q48-72h inflammatory markers - ferritin, Ddimer, CRP, LDH -Stop antibiotics due to normal procalcitonin. -Anticoagulation per hospital protocol -Proning as able Thank you for the consult, we will continue to follow. MD Valentín [facility] O: [phone] F: [phone]
[2020-12-30] MEDS ORDERED: INSULIN REGULAR, HUMAN 100 UNITS/1 ML SUB-Q SCH (17:00)
--- NOTE | 2020-12-30 20:15 | Progress Note ---
Assessment and Plan -- Acute encephalopathy Probably secondary to COVID-19 infection Patient has dysarthria but no focal deficits except for residual left-sided weakness Stroke unlikely, IV fluids Initiated Covid protocol Neuro consult requested MR brain requested -- Systemic inflammatory response syndrome (SIRS) All inflammatory markers are elevated IV Decadron initiated Positive for COVID-19, Covid protocol initiated -- 2019 novel coronavirus infection Initiate Decadron and remdesivir ID consult, follow inflammatory markers --Acute hypoxic respiratory failure due to COVID-19 pneumonia Empiric antibiotics, albuterol inhalers -- Hypertension Continue antihypertensives and adjust medications -- T2DM (type 2 diabetes mellitus) Continue home insulin and coverage follow hemoglobin A1c -- History of stroke Supportive care and physical therapy -- DVT prophylaxis On anticoagulation and GI prophylaxis Daily clinical course: 12/29/20: Positive for COVID-19, Initiate Covid protocol, consult ID 12/30/20: Continue dexamethasone and remdesivir, wean off O2 as tolerated. ID following, follow inflammatory markers Subjective Date of service: 12/30/20 Interval history: Patient seen and examined. Medical records and medication list reviewed. No acute event overnight noted by the RN. Patient on nasal cannula O2 Discussed plan of care at bedside with patient and with RN. Objective - Exam Narrative Exam: Limited physical exam due to COVID-19 pandemic to minimize transmission of the disease and to preserve PPE. Vital reviewed and stable. GENERAL: well-developed elderly white female lying on bed appeared to be in no discomfort. HEENT: Normocephalic. Atraumatic. NECK: Supple. CHEST/LUNGS: breathing nonlabored. On nasal cannula O2 HEART/CARDIOVASCULAR: Heart rate stable on telemetry ABDOMEN: Visibly not distended SKIN: There is no rash NEURO: Follows command. MUSCULOSKELETAL: No joint effusion EXTRIMITY: No swelling, no cyanosis or clubbing. PSYCH: Cooperative. - Constitutional Vitals: Vital Signs - 12hr 12/30/20 12/30/20 12/30/20 08:44 09:31 10:00 Temperature Pulse Rate Respiratory Rate Blood Pressure 132/57 O2 Sat by Pulse 97 95 Oximetry 12/30/20 12/30/20 11:58 17:38 Temperature 98.8 F 97.4 F L Pulse Rate 76 69 Respiratory 20 16 Rate Blood Pressure 118/59 126/71 O2 Sat by Pulse 97 99 Oximetry - Labs CBC & Chem 7: 12/29/20 05:37 12/31/20 05:40 Labs: Abnormal lab results 12/30/20 12/30/20 12/30/20 Range/Units 08:33 08:52 11:44 Sodium 133 L (137-145) mmol/L Carbon Dioxide 20 L (22-30) mmol/L Glucose 285 H (65-100) mg/dL POC Glucose 267 H 332 H (70-105) mg/dL Calcium 8.3 L (8.4-10.2) mg/dL Albumin 3.0 L (3.9-5) g/dL 12/30/20 Range/Units 16:03 Sodium (137-145) mmol/L Carbon Dioxide (22-30) mmol/L Glucose (65-100) mg/dL POC Glucose 400 H (70-105) mg/dL Calcium (8.4-10.2) mg/dL Albumin (3.9-5) g/dL HEART Score - HEART Score Risk factors: 1-2 risk factors Troponin: Troponin T < 0.010 ng/mL (0.00-0.029) 12/28/20 13:37 Troponin: < normal limit - Critical Actions Critical Actions: 0-3 pts:0.9-1.7%risk of adverse cardiac event.Candidate for discharge
[2020-12-30] MEDS: REMDESIVIR 100 MG in SODIUM CHLORIDE 0.9% 250ML 250 ML IV SCH (21:57)
[2020-12-30] MEDS: SODIUM CHLORIDE 0.9% 50 ML IVPB IV SCH (21:59)
[2020-12-30] MEDS: traZODone 100 MG TAB PO SCH (22:02)
[2020-12-31] MEDS: INSULIN LISPRO 100 UNIT/ML SUB-Q SCH ×5 (02:56→22:32)
[2020-12-31 06:44] LABS: Alanine Aminotransferase 15 units/L (7-56); Albumin 3.2 g/dL (3.9-5); BUN/Creatinine Ratio 28; Blood Urea Nitrogen 22 mg/dL (7-17); Hemolysis Index 100
[2020-12-31] MEDS: COLCHICINE 0.6 MG TAB PO SCH (10:28)
[2020-12-31] MEDS: ASPIRIN 81 MG TAB CHEW PO SCH (10:28)
[2020-12-31] MEDS: MAGNESIUM OXIDE 400 MG TAB PO SCH (10:28)
[2020-12-31] MEDS: CHOLECALCIFEROL (VIT D3) 5,000 UNIT TAB PO SCH (10:29)
[2020-12-31] MEDS: ASCORBIC ACID 500 MG TAB PO SCH ×2 (10:29→22:15)
[2020-12-31] MEDS: ZINC SULFATE 220 MG CAP PO SCH ×2 (10:29→22:16)
[2020-12-31] MEDS: dexAMETHasone 4 MG/ML VIAL IV SCH (10:29)
[2020-12-31] MEDS: FAMOTIDINE 20 MG TAB PO SCH ×2 (10:29→22:15)
[2020-12-31] MEDS: HEPARIN 5,000 UNIT/1 ML VIAL SUB-Q SCH ×2 (10:30→22:16)
[2020-12-31] MEDS: LISINOPRIL 5 MG TAB PO SCH ×2 (10:30→10:32)
[2020-12-31] MEDS ORDERED: ASPIRIN 81 MG TAB CHEW PO SCH (11:54)
--- NOTE | 2020-12-31 11:59 | Progress Note ---
Assessment and Plan Assessment and Plan Advance Directives: Yes (Full code) VTE prophylaxis?: Chemical Plan of care discussed with patient/family: Yes - Patient Problems # Acute encephalopathy Probably secondary to fever and systemic inflammatory response syndrome Patient had no focal deficits -Ct Brain is unremarkable -MRI brain is pending -IV fluids -Covid -19 Positive -ASA and SQ heparine # Noted increse weakness left side -U>L and left facial droop - # Systemic inflammatory response syndrome (SIRS) -All inflammatory markers are elevated -IV Decadron initiated -No antibiotics initiated -Coronavirus PCR is pending # Suspected 2019 novel coronavirus infection -Check coronavirus PCR -ID consult if necessary # Hypertension -Continue antihypertensives and adjust medications # T2DM (type 2 diabetes mellitus) -Continue home insulin and coverage -Check hemoglobin A1c (6) History of stroke -Supportive care and physical therapy - Maintain ASA 325 mg daily and Lipitor 40 mg -LDL, and A1C are pending -PT/ST evaluate. -MRI brain w/o Gd # DVT prophylaxis -On anticoagulation and GI prophylaxis PLAN 1- CTA brain and neck 2- MMRI brain 3- Increse ASA 325 mg daily and SQ heparine 4- Echo is pending 5- Lipitor 6- Neuro check q shift 7- PT/ST evaluate will follow Subjective Date of service: 12/31/20 Principal diagnosis: encephalopathy and COVID-19 Positive Interval history: she is with more noted left side weakness today and slight facial droop CT is unremarkable MRI brain is pending on ASA and SQ heparine Objective - Vital Sign Vital Signs - 12hr 12/31/20 09:30 O2 Sat by Pulse 100 Oximetry - General Apperance Constitutional: comfortable - EENT EENT: PERRL, mucous membranes moist - Respiratory Respiratory: chest non-tender, lungs clear, rhonchi - Cardiovascular Cardiovascular: regular rate, normal S1, normal S2 Extremities: no peripheral edema bilat, no clubbing, cyanosis - Gastrointestinal Gastrointestinal: normoactive bowel sounds - Integumentary Integumentary: normal - Neurologic Cranial nerve examination: PERRL, facial droop Speech examination: intact Detailed motor examination: other (noted left side weaknessU>L today planter is down going) - Laboratory Findings CBC and BMP: 12/29/20 05:37 12/31/20 05:40 Abnormal Lab Findings: Abnormal Labs 12/28/20 12/28/20 12/28/20 13:37 13:37 13:37 WBC MCH 27 L RDW 17.6 H Lymph % (Auto) 5.4 L [place] % (Auto) Lymph # (Auto) 0.3 L Seg Neutrophils % 88.0 H D-Dimer 1726.49 H Sodium 134 L Chloride 95.6 L Carbon Dioxide BUN 23 H Glucose 198 H POC Glucose Lactic Acid Calcium Ferritin Lactate Dehydrogenase C-Reactive Protein Albumin 3.6 L Coronavirus (PCR) 12/28/20 12/28/20 12/28/20 13:37 13:37 13:37 WBC MCH RDW Lymph % (Auto) [place] % (Auto) Lymph # (Auto) Seg Neutrophils % D-Dimer Sodium Chloride Carbon Dioxide BUN Glucose 203 H POC Glucose Lactic Acid 2.10 H* Calcium Ferritin 868.9 H Lactate Dehydrogenase 330 H C-Reactive Protein 21.40 H Albumin Coronavirus (PCR) 12/28/20 12/29/20 12/29/20 22:07 05:37 05:37 WBC 4.3 L MCH 27 L RDW 17.2 H Lymph % (Auto) 9.5 L [place] % (Auto) 9.8 H Lymph # (Auto) 0.4 L Seg Neutrophils % 79.5 H D-Dimer Sodium 135 L Chloride Carbon Dioxide BUN 19 H Glucose 302 H POC Glucose 303 H Lactic Acid Calcium 8.2 L Ferritin Lactate Dehydrogenase C-Reactive Protein Albumin 3.3 L Coronavirus (PCR) 12/29/20 12/29/20 12/29/20 06:32 08:00 08:05 WBC MCH RDW Lymph % (Auto) [place] % (Auto) Lymph # (Auto) Seg Neutrophils % D-Dimer Sodium Chloride Carbon Dioxide BUN Glucose POC Glucose 263 H 254 H Lactic Acid Calcium Ferritin Lactate Dehydrogenase C-Reactive Protein Albumin Coronavirus (PCR) Positive A 12/29/20 12/29/20 12/30/20 11:43 16:14 08:33 WBC MCH RDW Lymph % (Auto) [place] % (Auto) Lymph # (Auto) Seg Neutrophils % D-Dimer Sodium Chloride Carbon Dioxide BUN Glucose POC Glucose 212 H 257 H 267 H Lactic Acid Calcium Ferritin Lactate Dehydrogenase C-Reactive Protein Albumin Coronavirus (PCR) 12/30/20 12/30/20 12/30/20 08:52 11:44 16:03 WBC MCH RDW Lymph % (Auto) [place] % (Auto) Lymph # (Auto) Seg Neutrophils % D-Dimer Sodium 133 L Chloride Carbon Dioxide 20 L BUN Glucose 285 H POC Glucose 332 H 400 H Lactic Acid Calcium 8.3 L Ferritin Lactate Dehydrogenase C-Reactive Protein Albumin 3.0 L Coronavirus (PCR) 12/31/20 12/31/20 12/31/20 02:40 05:40 08:01 WBC MCH RDW Lymph % (Auto) [place] % (Auto) Lymph # (Auto) Seg Neutrophils % D-Dimer Sodium 133 L Chloride Carbon Dioxide 20 L BUN 22 H Glucose 217 H POC Glucose 323 H 144 H Lactic Acid Calcium Ferritin Lactate Dehydrogenase C-Reactive Protein Albumin 3.2 L Coronavirus (PCR)
--- NOTE | 2020-12-31 13:02 | Progress Note ---
Assessment and Plan Cultures: Blood culture no growth so far Urine culture no growth so far A/P: 75-year-old female past medical history diabetes, hypertension, dementia #COVID-19: no PNA seen on the CXR, however is requiring 3L O2. Likely causing her weakness and light-headedness. #Acute hypoxemic respiratory failure: Likely secondary to COVID-19 infection. Currently on 3L NC #Diabetes: tight glycemic control for best outcomes. Recs: -Dexamethasone 6 mg IV/PO daily for 10 days -Remdesivir 200 mg IV q day x 1 followed by 100 mg IV q day x 4 days -Obtain q48-72h inflammatory markers - ferritin, Ddimer, CRP, LDH -Stop antibiotics due to normal procalcitonin. -Anticoagulation per hospital protocol -Proning as able Thank you for the consult, we will continue to follow. Deandra Perez MD [facility] O: [phone] F: [phone] Subjective Date of service: 12/31/20 Principal diagnosis: encephalopathy and COVID-19 Positive Interval history: Febrile, no acute change. Currently on 3 L nasal cannula. Objective - Exam Narrative Exam: Physical exam deferred to reduce risk of transmission of COVID-19. Please refer to primary team's note. - Constitutional Vitals: Vital Signs Temp Pulse Resp BP Pulse Ox 97.4 F L 69 16 126/71 100 12/30/20 17:38 12/30/20 17:38 12/30/20 17:38 12/30/20 17:38 12/31/20 09:30 Temperature -Last 24 Hours Temperature 97.4 F - Labs CBC & Chem 7: 12/29/20 05:37 12/31/20 05:40 Labs: Abnormal lab results 12/30/20 12/31/20 12/31/20 Range/Units 16:03 02:40 05:40 Sodium 133 L (137-145) mmol/L Carbon Dioxide 20 L (22-30) mmol/L BUN 22 H (7-17) mg/dL Glucose 217 H (65-100) mg/dL POC Glucose 400 H 323 H (70-105) mg/dL Albumin 3.2 L (3.9-5) g/dL 12/31/20 Range/Units 08:01 Sodium (137-145) mmol/L Carbon Dioxide (22-30) mmol/L BUN (7-17) mg/dL Glucose (65-100) mg/dL POC Glucose 144 H (70-105) mg/dL Albumin (3.9-5) g/dL
--- NOTE | 2020-12-31 14:24 | Progress Note ---
Assessment and Plan -- Acute encephalopathy Probably secondary to COVID-19 infection and possible CVA Patient has dysarthria but no focal deficits except for residual left-sided weakness Rule out stroke Initiated Covid protocol Neuro consult requested MR brain requested but pending -- Systemic inflammatory response syndrome (SIRS) All inflammatory markers are elevated IV Decadron initiated Positive for COVID-19, Covid protocol initiated -- 2019 novel coronavirus infection Initiate Decadron and remdesivir ID consult, follow inflammatory markers --Acute hypoxic respiratory failure due to COVID-19 pneumonia Empiric antibiotics, albuterol inhalers -- Hypertension Continue antihypertensives and adjust medications -- T2DM (type 2 diabetes mellitus) Continue home insulin and coverage follow hemoglobin A1c -- History of stroke Supportive care and physical therapy -- DVT prophylaxis On anticoagulation and GI prophylaxis Daily clinical course: 12/29/20: Positive for COVID-19, Initiate Covid protocol, consult ID 12/30/20: Continue dexamethasone and remdesivir, wean off O2 as tolerated. ID following, follow inflammatory markers 12/31/20: Noted more left-sided weakness, MRI brain and 2D echo pending -Dexamethasone 6 mg IV/PO daily for 10 days -Remdesivir 200 mg IV q day x 1 followed by 100 mg IV q day x 4 days -Obtain q48-72h inflammatory markers - ferritin, Ddimer, CRP, LDH -Stopped antibiotics due to normal procalcitonin. Subjective Date of service: 12/31/20 Principal diagnosis: encephalopathy and COVID-19 Positive Interval history: Patient seen and examined. Medical records and medication list reviewed. No acute event overnight noted by the RN. Patient on nasal cannula O2 Discussed plan of care at bedside with patient and with RN. Objective - Exam Narrative Exam: Limited physical exam due to COVID-19 pandemic to minimize transmission of the disease and to preserve PPE. Vital reviewed and stable. GENERAL: well-developed elderly white female lying on bed appeared to be in no discomfort. HEENT: Normocephalic. Atraumatic. NECK: Supple. CHEST/LUNGS: breathing nonlabored. On nasal cannula O2 HEART/CARDIOVASCULAR: Heart rate stable on telemetry ABDOMEN: Visibly not distended SKIN: There is no rash NEURO: Follows command. MUSCULOSKELETAL: No joint effusion EXTRIMITY: No swelling, no cyanosis or clubbing. PSYCH: Cooperative. - Constitutional Vitals: Vital Signs - 12hr 12/31/20 09:30 O2 Sat by Pulse 100 Oximetry - Labs CBC & Chem 7: 12/29/20 05:37 12/31/20 05:40 Labs: Abnormal lab results 12/30/20 12/31/20 12/31/20 Range/Units 16:03 02:40 05:40 Sodium 133 L (137-145) mmol/L Carbon Dioxide 20 L (22-30) mmol/L BUN 22 H (7-17) mg/dL Glucose 217 H (65-100) mg/dL POC Glucose 400 H 323 H (70-105) mg/dL Albumin 3.2 L (3.9-5) g/dL 12/31/20 12/31/20 Range/Units 08:01 13:22 Sodium (137-145) mmol/L Carbon Dioxide (22-30) mmol/L BUN (7-17) mg/dL Glucose (65-100) mg/dL POC Glucose 144 H 334 H (70-105) mg/dL Albumin (3.9-5) g/dL HEART Score - HEART Score Risk factors: 1-2 risk factors Troponin: Troponin T < 0.010 ng/mL (0.00-0.029) 12/28/20 13:37 Troponin: < normal limit - Critical Actions Critical Actions: 0-3 pts:0.9-1.7%risk of adverse cardiac event.Candidate for discharge
--- NOTE | 2020-12-31 16:00 | Cat Scan Report ---
CTA NECK WITH CONTRAST HISTORY: Increasing left-sided weakness COMPARISON: None. TECHNIQUE: Routine CTA of the neck was performed. 3-D/MIP reformats were postprocessed. Percentage s tenosis is determined by direct quantitative measurements of diseased internal carotid artery diamete r compared with normal distal internal carotid artery reference segments or by criteria similar to NA SCET where applicable.All CT scans at this location are performed using CT dose reduction for ALARA b y means of automated exposure control CONTRAST: 100 ml of Omnipaque 350 FINDINGS: Aortic arch: No significant abnormality. Cervical vertebral arteries: Calcified plaques near the origins of both vertebral arteries with the l ess than 50% narrowing; extraosseous, foraminal, extraspinal and intradural segments are normal Common carotid arteries: No significant abnormality. Carotid bifurcations: Nonstenotic calcified atheromatous plaques in both carotid bifurcations Cervical internal carotid arteries: No significant abnormality. Additional findings: Left upper lobe lung infiltrate IMPRESSION: 1. No significant abnormality. No Thromboembolic disease in the craniocervical carotid and vertebroba silar system Signer Name: Stevenson Vital MD Signed: 12/31/2020 3:56 PM Workstation Name: [id number]
--- NOTE | 2020-12-31 16:02 | Cat Scan Report ---
CT angio head INDICATION / CLINICAL INFORMATION: 75 years Female; increse left side weakness ,COVID-19 Positive. TECHNIQUE: Thin cut axial images obtained through the head during IV bolus contrast administration. S agittal, coronal, and 3 plane MIP reconstructions performed by the technologist. NASCET type criteria used evaluate stenoses. Automated exposure control utilized for radiation reduction purposes. COMPARISON: None available. FINDINGS: INTERNAL CAROTID ARTERIES: There is extensive atherosclerotic calcification involving distal internal carotid arteries with mild narrowing of the ophthalmic and clinoid segments by NASCET to criteria. 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 There are scattered foci of calcification of the dominant right vertebral artery with mild segmental narrowing at. There is developmental tortuosity of the basilar artery without significant focal stenosis at. CEREBRAL ARTERIES: There is also developmental origin of the right SCRAP PICKER. There is no significant focal stenosis involving proximal cerebral arteries or evidence of large vessel occlusion. ANEURYSM: Findings are most consistent with incidental infundibulum of the left posterior communicati ng artery. There is no clear CTA evidence of intracranial aneurysm. ADDITIONAL FINDINGS: The dural venous sinuses opacify with contrast. Is mild opacification within the sphenoid sinuses. Impression: 1. There is atherosclerotic calcification involving distal internal carotid arteries with mild segmen cherise narrowing by NASCET criteria as detailed above. 2. 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 3. There is no clear CTA evidence of large vessel occlusion. Signer Name: Esteban Hart MD Signed: 12/31/2020 3:57 PM Workstation Name: [id number]
[2020-12-31] MEDS: INSULIN NPH, HUMAN 100 UNIT/1 ML SUB-Q SCH ×2 (17:11→17:21)
[2020-12-31] MEDS: REMDESIVIR 100 MG in SODIUM CHLORIDE 0.9% 250ML 250 ML IV SCH (22:14)
[2020-12-31] MEDS: traZODone 100 MG TAB PO SCH (22:16)
[2020-12-31] MEDS: SODIUM CHLORIDE 0.9% 50 ML IVPB IV SCH (23:15)
[2021-01-01 06:38] LABS: Alanine Aminotransferase 12 units/L (7-56); Albumin 2.5 g/dL (3.9-5); BUN/Creatinine Ratio 26; Blood Urea Nitrogen 21 mg/dL (7-17); Calcium 8.5 mg/dL (8.4-10.2); Hemolysis Index 4
[2021-01-01] MEDS: INSULIN LISPRO 100 UNIT/ML SUB-Q SCH ×4 (08:17→23:02)
[2021-01-01] MEDS: INSULIN NPH, HUMAN 100 UNIT/1 ML SUB-Q SCH ×2 (08:20→18:27)
[2021-01-01 09:44] LABS: Chol/HDL Ratio 3.66 %
[2021-01-01] MEDS: ASCORBIC ACID 500 MG TAB PO SCH ×2 (09:54→22:50)
[2021-01-01] MEDS: ASPIRIN 325 MG TAB PO SCH (09:54)
[2021-01-01] MEDS: dexAMETHasone 4 MG/ML VIAL IV SCH ×2 (09:55→10:02)
[2021-01-01] MEDS: COLCHICINE 0.6 MG TAB PO SCH (09:55)
[2021-01-01] MEDS: HEPARIN 5,000 UNIT/1 ML VIAL SUB-Q SCH ×2 (09:55→22:51)
[2021-01-01] MEDS: FAMOTIDINE 20 MG TAB PO SCH ×2 (09:55→22:51)
[2021-01-01] MEDS: ZINC SULFATE 220 MG CAP PO SCH ×2 (09:55→22:51)
[2021-01-01] MEDS: MAGNESIUM OXIDE 400 MG TAB PO SCH (09:55)
[2021-01-01] MEDS: CHOLECALCIFEROL (VIT D3) 5,000 UNIT TAB PO SCH (09:55)
[2021-01-01] MEDS: LISINOPRIL 5 MG TAB PO SCH (10:02)
--- NOTE | 2021-01-01 10:52 | Progress Note ---
Assessment and Plan Cultures: Blood culture no growth so far Urine culture no growth so far A/P: 75-year-old female past medical history diabetes, hypertension, dementia #COVID-19: no PNA seen on the CXR, however is requiring 3L O2. Likely causing her weakness and light-headedness. #Acute hypoxemic respiratory failure: Likely secondary to COVID-19 infection. Currently on 2L NC #Diabetes: tight glycemic control for best outcomes. Recs: -Dexamethasone 6 mg IV/PO daily for 10 days -Remdesivir 200 mg IV q day x 1 followed by 100 mg IV q day x 4 days -Obtain q48-72h inflammatory markers - ferritin, Ddimer, CRP, LDH -Stop antibiotics due to normal procalcitonin. -Anticoagulation per hospital protocol -Proning as able Thank you for the consult, we will sign off. Please call with questions. Deandra Perez MD [facility] O: [phone] F: [phone] Subjective Date of service: 01/01/21 Principal diagnosis: encephalopathy and COVID-19 Positive Interval history: Afebrile, no acute change. Objective - Exam Narrative Exam: Physical exam deferred to reduce risk of transmission of COVID-19. Please refer to primary team's note. - Constitutional Vitals: Vital Signs Temp Pulse Resp BP Pulse Ox 98.0 F 75 18 119/59 68 L 01/01/21 04:45 01/01/21 10:02 01/01/21 04:45 01/01/21 10:02 01/01/21 04:45 Temperature -Last 24 Hours Temperature 98.0 F Temperature 97.4 F Temperature 94.9 F - Labs CBC & Chem 7: 12/29/20 05:37 01/01/21 05:56 Labs: Abnormal lab results 12/31/20 12/31/20 12/31/20 Range/Units 13:22 17:03 21:27 Sodium (137-145) mmol/L BUN (7-17) mg/dL Glucose (65-100) mg/dL POC Glucose 334 H 416 H 286 H (70-105) mg/dL Total Protein (6.3-8.2) g/dL Albumin (3.9-5) g/dL LDL Cholesterol Direct (50-130) mg/dL HDL Cholesterol (40-59) mg/dL 01/01/21 01/01/21 01/01/21 Range/Units 05:56 08:04 09:14 Sodium 136 L (137-145) mmol/L BUN 21 H (7-17) mg/dL Glucose 195 H (65-100) mg/dL POC Glucose 182 H (70-105) mg/dL Total Protein 6.0 L D (6.3-8.2) g/dL Albumin 2.5 L (3.9-5) g/dL LDL Cholesterol Direct 41 L (50-130) mg/dL HDL Cholesterol 24 L (40-59) mg/dL
--- NOTE | 2021-01-01 12:44 | Progress Note ---
Assessment and Plan Assessment and Plan Advance Directives: Yes (Full code) VTE prophylaxis?: Chemical Plan of care discussed with patient/family: Yes - Patient Problems # Acute encephalopathy Probably secondary to fever and systemic inflammatory response syndrome Patient had no focal deficits -Ct Brain is unremarkable -MRI brain is pending -IV fluids -Covid -19 Positive -ASA and SQ heparine # Noted increse weakness left side -U>L and left facial droop -review MRI -on ASA and Lipitor -LDL#41 -CTA brain and neck showed distal ICA sclerotic changes mostly ophthalmic and clinoid region. - # Systemic inflammatory response syndrome (SIRS) -All inflammatory markers are elevated -IV Decadron initiated -No antibiotics initiated -Coronavirus PCR is pending # Suspected 2019 novel coronavirus infection -grossman virus PCR is positive -ID consult if necessary # Hypertension -Continue antihypertensives and adjust medications # T2DM (type 2 diabetes mellitus) -Continue home insulin and coverage -Check hemoglobin A1c (6) History of stroke -Supportive care and physical therapy - Maintain ASA 325 mg daily and Lipitor 40 mg -LDL, and A1C are pending -PT/ST evaluate. -MRI brain w/o Gd # DVT prophylaxis -On anticoagulation and GI prophylaxis PLAN 1- CTA brain and neck is noted 2- MRI brain today 3- Increse ASA 325 mg daily and SQ heparine 4- Echo is pending 5- Lipitor 40 mg daily and LDL#41 6- Neuro check q shift 7- PT/ST evaluate will follow as needed Subjective Date of service: 01/01/21 Principal diagnosis: encephalopathy and COVID-19 Positive Interval history: she is with more noted left side weakness today and slight facial droop CT is unremarkable MRI brain is pending on ASA and SQ heparine today she is with more alertness and interact somewhat better left side weakness with underlying stiffness ? related to remote CVA 6 months back. Objective - Vital Sign Vital Signs - 12hr 01/01/21 01/01/21 01/01/21 04:45 10:02 10:53 Temperature 98.0 F Pulse Rate 81 75 Respiratory 18 18 Rate Blood Pressure 122/51 119/59 O2 Sat by Pulse 68 L 100 Oximetry - General Apperance Constitutional: comfortable - EENT EENT: PERRL, mucous membranes moist - Respiratory Respiratory: chest non-tender, lungs clear, rhonchi - Cardiovascular Cardiovascular: regular rate, normal S1, normal S2 Extremities: no peripheral edema bilat, no clubbing, cyanosis - Gastrointestinal Gastrointestinal: normoactive bowel sounds - Integumentary Integumentary: normal - Neurologic Cranial nerve examination: PERRL, EOMI Speech examination: intact Detailed motor examination: other (left upper > lower weakness with underlying stiffness and mild contracture left side.) - Laboratory Findings CBC and BMP: 12/29/20 05:37 01/01/21 05:56 Abnormal Lab Findings: Abnormal Labs 12/28/20 12/28/20 12/28/20 13:37 13:37 13:37 WBC MCH 27 L RDW 17.6 H Lymph % (Auto) 5.4 L [place] % (Auto) Lymph # (Auto) 0.3 L Seg Neutrophils % 88.0 H D-Dimer 1726.49 H Sodium 134 L Chloride 95.6 L Carbon Dioxide BUN 23 H Glucose 198 H POC Glucose Lactic Acid Calcium Ferritin Lactate Dehydrogenase C-Reactive Protein Total Protein Albumin 3.6 L LDL Cholesterol Direct HDL Cholesterol Coronavirus (PCR) 12/28/20 12/28/20 12/28/20 13:37 13:37 13:37 WBC MCH RDW Lymph % (Auto) [place] % (Auto) Lymph # (Auto) Seg Neutrophils % D-Dimer Sodium Chloride Carbon Dioxide BUN Glucose 203 H POC Glucose Lactic Acid 2.10 H* Calcium Ferritin 868.9 H Lactate Dehydrogenase 330 H C-Reactive Protein 21.40 H Total Protein Albumin LDL Cholesterol Direct HDL Cholesterol Coronavirus (PCR) 12/28/20 12/29/20 12/29/20 22:07 05:37 05:37 WBC 4.3 L MCH 27 L RDW 17.2 H Lymph % (Auto) 9.5 L [place] % (Auto) 9.8 H Lymph # (Auto) 0.4 L Seg Neutrophils % 79.5 H D-Dimer Sodium 135 L Chloride Carbon Dioxide BUN 19 H Glucose 302 H POC Glucose 303 H Lactic Acid Calcium 8.2 L Ferritin Lactate Dehydrogenase C-Reactive Protein Total Protein Albumin 3.3 L LDL Cholesterol Direct HDL Cholesterol Coronavirus (PCR) 12/29/20 12/29/20 12/29/20 06:32 08:00 08:05 WBC MCH RDW Lymph % (Auto) [place] % (Auto) Lymph # (Auto) Seg Neutrophils % D-Dimer Sodium Chloride Carbon Dioxide BUN Glucose POC Glucose 263 H 254 H Lactic Acid Calcium Ferritin Lactate Dehydrogenase C-Reactive Protein Total Protein Albumin LDL Cholesterol Direct HDL Cholesterol Coronavirus (PCR) Positive A 12/29/20 12/29/20 12/30/20 11:43 16:14 08:33 WBC MCH RDW Lymph % (Auto) [place] % (Auto) Lymph # (Auto) Seg Neutrophils % D-Dimer Sodium Chloride Carbon Dioxide BUN Glucose POC Glucose 212 H 257 H 267 H Lactic Acid Calcium Ferritin Lactate Dehydrogenase C-Reactive Protein Total Protein Albumin LDL Cholesterol Direct HDL Cholesterol Coronavirus (PCR) 12/30/20 12/30/20 12/30/20 08:52 11:44 16:03 WBC MCH RDW Lymph % (Auto) [place] % (Auto) Lymph # (Auto) Seg Neutrophils % D-Dimer Sodium 133 L Chloride Carbon Dioxide 20 L BUN Glucose 285 H POC Glucose 332 H 400 H Lactic Acid Calcium 8.3 L Ferritin Lactate Dehydrogenase C-Reactive Protein Total Protein Albumin 3.0 L LDL Cholesterol Direct HDL Cholesterol Coronavirus (PCR) 12/31/20 12/31/20 12/31/20 02:40 05:40 08:01 WBC MCH RDW Lymph % (Auto) [place] % (Auto) Lymph # (Auto) Seg Neutrophils % D-Dimer Sodium 133 L Chloride Carbon Dioxide 20 L BUN 22 H Glucose 217 H POC Glucose 323 H 144 H Lactic Acid Calcium Ferritin Lactate Dehydrogenase C-Reactive Protein Total Protein Albumin 3.2 L LDL Cholesterol Direct HDL Cholesterol Coronavirus (PCR) 12/31/20 12/31/20 12/31/20 13:22 17:03 21:27 WBC MCH RDW Lymph % (Auto) [place] % (Auto) Lymph # (Auto) Seg Neutrophils % D-Dimer Sodium Chloride Carbon Dioxide BUN Glucose POC Glucose 334 H 416 H 286 H Lactic Acid Calcium Ferritin Lactate Dehydrogenase C-Reactive Protein Total Protein Albumin LDL Cholesterol Direct HDL Cholesterol Coronavirus (PCR) 01/01/21 01/01/21 01/01/21 05:56 08:04 09:14 WBC MCH RDW Lymph % (Auto) [place] % (Auto) Lymph # (Auto) Seg Neutrophils % D-Dimer Sodium 136 L Chloride Carbon Dioxide BUN 21 H Glucose 195 H POC Glucose 182 H Lactic Acid Calcium Ferritin Lactate Dehydrogenase C-Reactive Protein Total Protein 6.0 L D Albumin 2.5 L LDL Cholesterol Direct 41 L HDL Cholesterol 24 L Coronavirus (PCR) 01/01/21 11:20 WBC MCH RDW Lymph % (Auto) [place] % (Auto) Lymph # (Auto) Seg Neutrophils % D-Dimer Sodium Chloride Carbon Dioxide BUN Glucose POC Glucose 201 H Lactic Acid Calcium Ferritin Lactate Dehydrogenase C-Reactive Protein Total Protein Albumin LDL Cholesterol Direct HDL Cholesterol Coronavirus (PCR)
--- NOTE | 2021-01-01 13:13 | Magnetic Resonance Report ---
MRI BRAIN WITHOUT CONTRAST INDICATION / CLINICAL INFORMATION: CVA, COVID 19, WEAKNESS Patient motion, coughing during scan, best possible exam.. TECHNIQUE: Multiplanar, multisequence MR images of the brain were obtained. COMPARISON: Head CT 10/14/2015 and 12/28/2020. FINDINGS: BRAIN / INTRACRANIAL CONTENTS: Ventricles and cortical sulci are enlarged reflecting moderate central greater than cortical parenchymal volume loss. There is CSF signal intensity structure projects from the third ventricle into the region of the right thalamus. This may represent macrocystic encephalom alacia secondary to remote deep infarction. Possibility of ventricular diverticulum and arachnoid cys t could also be considered. There is no associated mass effect. This finding is stable in comparison to previous studies dating back through 10/14/2015. A dystrophic calcification is seen along the poste rior margin of this abnormality, also unchanged.. There is no mass effect. No evidence of intracrania l hemorrhage or extra-axial fluid collection is seen. Extensive periventricular and deep white matter hyperintensities are observed in both cerebral hemispheres compatible with advanced microvascular is chemic change.. Diffusion weighted scans are negative. There is no indication of acute ischemic injur y. There is evidence of atrophy of the right cerebral peduncle. Brainstem has an otherwise unremarkable appearance. No cerebellar abnormalities are identified. MIDLINE STRUCTURES:No abnormalities are seen to involve the pituitary gland. Pineal region has an unr emarkable appearance. CRANIOCERVICAL JUNCTION: No abnormalities are identified at the craniocervical junction. VASCULAR FLOW-VOIDS: Normal flow-voids are present within the major intracranial vessels. ORBITS: Status post bilateral cataract surgery. No additional abnormality. SINUSES / MASTOIDS: There is no indication of inflammatory disease in the paranasal sinuses or mastoi d air cells. IMPRESSION: 1. No acute intracranial abnormality. Brain imaging findings are stable in comparison to prior head C T examination dated back through 10/14/2015. 2. Age-related involutional changes of central greater than cortical parenchymal volume loss and micr ovascular ischemic change. 2. Chronic region of CSF signal intensity in the right thalamus. Please refer to the above discussion . Signer Name: Sebastián Phan MD Signed: 01/01/2021 1:09 PM Workstation Name: [id number]
--- NOTE | 2021-01-01 13:24 | Progress Note ---
Assessment and Plan -- Acute encephalopathy Probably secondary to COVID-19 infection and possible CVA Patient has dysarthria but no focal deficits except for residual left-sided weakness Rule out stroke Initiated Covid protocol Neuro consult requested MR brain requested but pending -- Systemic inflammatory response syndrome (SIRS) All inflammatory markers are elevated IV Decadron initiated Positive for COVID-19, Covid protocol initiated -- 2019 novel coronavirus infection Initiate Decadron and remdesivir ID consult, follow inflammatory markers --Acute hypoxic respiratory failure due to COVID-19 pneumonia Empiric antibiotics, albuterol inhalers -- Hypertension Continue antihypertensives and adjust medications -- T2DM (type 2 diabetes mellitus) Continue home insulin and coverage follow hemoglobin A1c -- History of stroke with leftsided weakness Supportive care and physical therapy --h/o dementia, supportive care --Manpreet cell cancer of skin, treated --History of lung cancer with metastasis to brain Diagnosed 3 months back, patient currently on a daily p.o. chemotherapy by Dr. Bradley at [facility] Holding chemotherapy for now, patient daughter will get back to Dr. Bradley at [facility] to verify when to resume chemotherapy -- DVT prophylaxis On anticoagulation and GI prophylaxis Daily clinical course: 12/29/20: Positive for COVID-19, Initiate Covid protocol, consult ID 12/30/20: Continue dexamethasone and remdesivir, wean off O2 as tolerated. ID following, follow inflammatory markers 12/31/20: Noted more left-sided weakness, MRI brain and 2D echo pending -Dexamethasone 6 mg IV/PO daily for 10 days -Remdesivir 200 mg IV q day x 1 followed by 100 mg IV q day x 4 days -Obtain q48-72h inflammatory markers - ferritin, Ddimer, CRP, LDH -Stopped antibiotics due to normal procalcitonin. 01/01/21: Continue remdesivir, and dexamethasone, follow inflammatory markers. Patient on 3 to 4 L nasal cannula O2. Discussed with daughter in details. 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 She is being treated at [facility] by Dr. Bradley. Patient daughter will gather more information from Dr. Bradley about her current cancer treatment. She does not know the name of the chemotherapy pill that patient was taking daily. Patient last dose of remdesivir is tomorrow. Continue dexamethasone. PT recommended SNF placement. Family will decide about CODE STATUS. Guarded prognosis. Follow-up MRI brain results. Subjective Date of service: 01/01/21 Principal diagnosis: encephalopathy and COVID-19 Positive Interval history: Patient seen and examined. Medical records and medication list reviewed. No acute event overnight noted by the RN. Patient on nasal cannula O2 Discussed plan of care at bedside with patient and with RN. Objective - Exam Narrative Exam: Limited physical exam due to COVID-19 pandemic to minimize transmission of the disease and to preserve PPE. Vital reviewed and stable. GENERAL: well-developed elderly white female lying on bed appeared to be in no discomfort. HEENT: Normocephalic. Atraumatic. NECK: Supple. CHEST/LUNGS: breathing nonlabored. On nasal cannula O2 HEART/CARDIOVASCULAR: Heart rate stable on telemetry ABDOMEN: Visibly not distended SKIN: There is no rash NEURO: Follows command. MUSCULOSKELETAL: No joint effusion EXTRIMITY: No swelling, no cyanosis or clubbing. PSYCH: Cooperative. - Constitutional Vitals: Vital Signs - 12hr 01/01/21 01/01/21 01/01/21 04:45 10:02 10:53 Temperature 98.0 F Pulse Rate 81 75 Respiratory 18 18 Rate Blood Pressure 122/51 119/59 O2 Sat by Pulse 68 L 100 Oximetry - Labs CBC & Chem 7: 12/29/20 05:37 01/01/21 05:56 Labs: Abnormal lab results 12/31/20 12/31/20 12/31/20 Range/Units 13:22 17:03 21:27 Sodium (137-145) mmol/L BUN (7-17) mg/dL Glucose (65-100) mg/dL POC Glucose 334 H 416 H 286 H (70-105) mg/dL Total Protein (6.3-8.2) g/dL Albumin (3.9-5) g/dL LDL Cholesterol Direct (50-130) mg/dL HDL Cholesterol (40-59) mg/dL 01/01/21 01/01/21 01/01/21 Range/Units 05:56 08:04 09:14 Sodium 136 L (137-145) mmol/L BUN 21 H (7-17) mg/dL Glucose 195 H (65-100) mg/dL POC Glucose 182 H (70-105) mg/dL Total Protein 6.0 L D (6.3-8.2) g/dL Albumin 2.5 L (3.9-5) g/dL LDL Cholesterol Direct 41 L (50-130) mg/dL HDL Cholesterol 24 L (40-59) mg/dL 01/01/21 Range/Units 11:20 Sodium (137-145) mmol/L BUN (7-17) mg/dL Glucose (65-100) mg/dL POC Glucose 201 H (70-105) mg/dL Total Protein (6.3-8.2) g/dL Albumin (3.9-5) g/dL LDL Cholesterol Direct (50-130) mg/dL HDL Cholesterol (40-59) mg/dL HEART Score - HEART Score Risk factors: 1-2 risk factors Troponin: Troponin T < 0.010 ng/mL (0.00-0.029) 12/28/20 13:37 Troponin: < normal limit - Critical Actions Critical Actions: 0-3 pts:0.9-1.7%risk of adverse cardiac event.Candidate for discharge
[2021-01-01] MEDS: REMDESIVIR 100 MG in SODIUM CHLORIDE 0.9% 250ML 250 ML IV SCH (22:50)
[2021-01-01] MEDS: SODIUM CHLORIDE 0.9% 50 ML IVPB IV SCH (22:50)
[2021-01-01] MEDS: traZODone 100 MG TAB PO SCH (22:51)
[2021-01-02 01:24] LABS: C-Reactive Protein 13.3 mg/dL (0.00-1.30)
[2021-01-02] MEDS: INSULIN LISPRO 100 UNIT/ML SUB-Q SCH ×4 (08:05→21:31)
[2021-01-02] MEDS: INSULIN NPH, HUMAN 100 UNIT/1 ML SUB-Q SCH ×2 (08:05→17:06)
[2021-01-02] MEDS: ZINC SULFATE 220 MG CAP PO SCH ×2 (09:35→21:33)
[2021-01-02] MEDS: FAMOTIDINE 20 MG TAB PO SCH ×2 (09:35→21:32)
[2021-01-02] MEDS: ASPIRIN 325 MG TAB PO SCH (09:35)
[2021-01-02] MEDS: ASCORBIC ACID 500 MG TAB PO SCH ×2 (09:35→21:32)
[2021-01-02] MEDS: MAGNESIUM OXIDE 400 MG TAB PO SCH (09:35)
[2021-01-02] MEDS: LISINOPRIL 5 MG TAB PO SCH (09:36)
[2021-01-02] MEDS: dexAMETHasone 4 MG/ML VIAL IV SCH (09:37)
[2021-01-02] MEDS: HEPARIN 5,000 UNIT/1 ML VIAL SUB-Q SCH ×2 (09:37→21:33)
[2021-01-02] MEDS: COLCHICINE 0.6 MG TAB PO SCH (09:37)
[2021-01-02] MEDS: CHOLECALCIFEROL (VIT D3) 5,000 UNIT TAB PO SCH (09:41)
--- NOTE | 2021-01-02 10:02 | Progress Note ---
Assessment and Plan - Patient Problems (1) Suspected 2019 novel coronavirus infection Current Visit: Yes Status: Acute Plan to address problem: Coronavirus protocol, supplemental oxygen, pulse oximetry, nebulizer therapy, supportive care. (2) Vascular dementia Current Visit: Yes Status: Acute Qualifiers: Dementia behavioral disturbance: without behavioral disturbance Qualified Code(s): F01.50 - Vascular dementia without behavioral disturbance Plan to address problem: Verbal prompting, verbal redirection, benzodiazepine therapy as clinically indicated. (3) Cerebral atherosclerosis Current Visit: Yes Status: Acute Plan to address problem: Verbal prompting, verbal redirection, antiplatelet therapy as clinically indicated. (4) Acute encephalopathy Current Visit: Yes Status: Acute Plan to address problem: Supportive care, neuro check, seizure precautions, aspiration precautions, fall precautions (5) DVT prophylaxis Current Visit: Yes Status: Acute Plan to address problem: SCD to bilateral lower extremities while in bed (6) Advance care planning Current Visit: Yes Status: Acute Plan to address problem: Disease education conducted, care plan discussed, diagnoses discussed, prognosis discussed, patient is full code, patient is pending [facility] placement as per family request. History Interval history: 75 YO Female HD #5 with coronavirus infection, lung cancer, metabolic encephalopathy. Patient is at baseline level of cognition and function. Patient [facility] No acute decompensation overnight. Patient remains medically stable. Hospitalist Physical - Constitutional Vitals: Temp Pulse Resp BP Pulse Ox 98.0 F 81 16 107/61 90 01/02/21 04:36 01/02/21 09:36 01/02/21 04:36 01/02/21 09:36 01/02/21 04:36 General appearance: Present: mild distress, well-nourished - EENT Eyes: Present: PERRL, EOM intact ENT: hearing decreased - Neck Neck: Present: supple - Respiratory Respiratory effort: labored Respiratory: bilateral: diminished, rhonchi - Cardiovascular Rhythm: regular Heart Sounds: Present: S1 & S2 - Extremities Extremities: no ischemia Peripheral Pulses: within normal limits - Abdominal General gastrointestinal: soft, non-tender, non-distended - Integumentary Integumentary: Present: warm, dry - Psychiatric Psychiatric: cooperative - Neurologic Neurologic: CNII-XII intact HEART Score - HEART Score Risk factors: 1-2 risk factors Troponin: Troponin T < 0.010 ng/mL (0.00-0.029) 12/28/20 13:37 Troponin: < normal limit - Critical Actions Critical Actions: 0-3 pts:0.9-1.7%risk of adverse cardiac event.Candidate for discharge Results - Labs CBC & Chem 7: 12/29/20 05:37 01/01/21 05:56 Labs: Laboratory Last Values WBC 4.3 K/mm3 (4.5-11.0) L 12/29/20 05:37 RBC 4.04 M/mm3 (3.65-5.03) 12/29/20 05:37 Hgb 10.7 gm/dl (10.1-14.3) 12/29/20 05:37 Hct 32.4 % (30.3-42.9) 12/29/20 05:37 MCV 80 fl (79-97) 12/29/20 05:37 MCH 27 pg (28-32) L 12/29/20 05:37 MCHC 33 % (30-34) 12/29/20 05:37 RDW 17.2 % (13.2-15.2) H 12/29/20 05:37 Plt Count 205 K/mm3 (140-440) 12/29/20 05:37 Lymph % (Auto) 9.5 % (13.4-35.0) L 12/29/20 05:37 [place] % (Auto) 9.8 % (0.0-7.3) H 12/29/20 05:37 Eos % (Auto) 0.8 % (0.0-4.3) 12/29/20 05:37 Baso % (Auto) 0.4 % (0.0-1.8) 12/29/20 05:37 Lymph # (Auto) 0.4 K/mm3 (1.2-5.4) L 12/29/20 05:37 [place] # (Auto) 0.4 K/mm3 (0.0-0.8) 12/29/20 05:37 Eos # (Auto) 0.0 K/mm3 (0.0-0.4) 12/29/20 05:37 Baso # (Auto) 0.0 K/mm3 (0.0-0.1) 12/29/20 05:37 Seg Neutrophils % 79.5 % (40.0-70.0) H 12/29/20 05:37 Seg Neutrophils # 3.4 K/mm3 (1.8-7.7) 12/29/20 05:37 APTT 34.2 Sec. (24.2-36.6) 12/28/20 13:37 D-Dimer 1149.31 ng/mlDDU (0-234) H 01/01/21 23:23 Sodium 136 mmol/L (137-145) L 01/01/21 05:56 Potassium 3.9 mmol/L (3.6-5.0) 01/01/21 05:56 Chloride 101.5 mmol/L (98-107) 01/01/21 05:56 Carbon Dioxide 23 mmol/L (22-30) 01/01/21 05:56 Anion Gap 15 mmol/L 01/01/21 05:56 BUN 21 mg/dL (7-17) H 01/01/21 05:56 Creatinine 0.8 mg/dL (0.6-1.2) 01/01/21 05:56 Estimated GFR > 60 ml/min 01/01/21 05:56 BUN/Creatinine Ratio 26 % 01/01/21 05:56 Glucose 195 mg/dL (65-100) H 01/01/21 05:56 POC Glucose 285 mg/dL (70-105) H 01/02/21 07:40 Lactic Acid 0.90 mmol/L (0.7-2.0) 12/28/20 16:02 Calcium 8.5 mg/dL (8.4-10.2) 01/01/21 05:56 Ferritin 1039.0 ng/mL (10.0-200.0) H 01/01/21 23:23 Total Bilirubin 0.30 mg/dL (0.1-1.2) 01/01/21 05:56 AST 27 units/L (5-40) 01/01/21 05:56 ALT 12 units/L (7-56) 01/01/21 05:56 Alkaline Phosphatase 78 units/L (35-129) 01/01/21 05:56 Lactate Dehydrogenase 317 units/L (91-180) H 01/01/21 23:23 Troponin T < 0.010 ng/mL (0.00-0.029) 12/28/20 13:37 C-Reactive Protein 13.30 mg/dL (0.00-1.30) H 01/01/21 23:23 Total Protein 6.0 g/dL (6.3-8.2) L D 01/01/21 05:56 Albumin 2.5 g/dL (3.9-5) L 01/01/21 05:56 Albumin/Globulin Ratio 0.7 % 01/01/21 05:56 Triglycerides 104 mg/dL (2-149) 01/01/21 09:14 Cholesterol 88 mg/dL (50-199) 01/01/21 09:14 LDL Cholesterol Direct 41 mg/dL (50-130) L 01/01/21 09:14 HDL Cholesterol 24 mg/dL (40-59) L 01/01/21 09:14 Cholesterol/HDL Ratio 3.66 % 01/01/21 09:14 Procalcitonin 1.94 ng/mL (<0.15) 01/01/21 23:23 Urine Color Yellow (Yellow) 12/28/20 Unknown Urine Turbidity Clear (Clear) 12/28/20 Unknown Urine pH 5.0 (5.0-7.0) 12/28/20 Unknown Ur Specific [place] 1.012 (1.003-1.030) 12/28/20 Unknown Urine Protein 30 mg/dl mg/dL (Negative) 12/28/20 Unknown Urine Glucose (UA) 50 mg/dL (Negative) 12/28/20 Unknown Urine Ketones 20 mg/dL (Negative) 12/28/20 Unknown Urine Blood Sm (Negative) 12/28/20 Unknown Urine Nitrite Neg (Negative) 12/28/20 Unknown Urine Bilirubin Neg (Negative) 12/28/20 Unknown Urine Urobilinogen < 2.0 mg/dL (<2.0) 12/28/20 Unknown Ur Leukocyte Esterase Neg (Negative) 12/28/20 Unknown Urine WBC (Auto) 4.0 /HPF (0.0-6.0) 12/28/20 Unknown Urine RBC (Auto) 1.0 /HPF (0.0-6.0) 12/28/20 Unknown Urine Mucus Few /HPF 12/28/20 Unknown Coronavirus (PCR) Positive (Negative) A 12/29/20 08:00 Microbiology: Microbiology 12/28/20 13:37 Peripheral/Venous Blood Culture - Preliminary NO GROWTH AFTER 4 DAYS 12/28/20 13:37 Peripheral/Venous Blood Culture - Preliminary NO GROWTH AFTER 4 DAYS [place]/IV: Voiding Method Incontinent Active Medications - Current Medications Current Medications: Generic Name Dose Route Start Last Admin Trade Name Freq PRN Reason Stop Dose Admin Acetaminophen 650 mg 12/28/20 22:19 12/31/20 10:54 Acetaminophen 325 Mg Tab PO 650 mg Q4H PRN Administration Pain MILD(1-3)/Fever >100.5/ALBARADO Ascorbic Acid 1,000 mg 12/30/20 10:00 01/02/21 09:35 Ascorbic Acid 500 Mg Tab PO 1,000 mg BID SHOBHA Administration Aspirin 325 mg 01/01/21 10:00 01/02/21 09:35 Aspirin 325 Mg Tab PO 325 mg QDAY SHOBHA Administration Cholecalciferol 5,000 unit 12/30/20 10:00 01/02/21 09:41 Cholecalciferol (Vit D3) 5,000 Unit Tab PO 5,000 unit DAILY SHOBHA Administration Colchicine 0.6 mg 12/29/20 18:00 01/02/21 09:37 Colchicine 0.6 Mg Tab PO 0.6 mg DAILY SHOBHA Administration Dexamethasone 8 mg 12/29/20 10:00 01/02/21 09:37 Dexamethasone 4 Mg/Ml Vial IV 01/06/21 10:01 8 mg Q24HR SHOBHA Administration Dextrose 0 ml 12/28/20 22:48 Dextrose 50% In Water (25gm) 50 Ml Syringe IV Q30MIN PRN Hypoglycemia Protocol Famotidine 20 mg 12/29/20 22:00 01/02/21 09:35 Famotidine 20 Mg Tab PO 20 mg BID SHOBHA Administration Heparin Sodium (Porcine) 5,000 unit 12/29/20 10:00 01/02/21 09:37 Heparin 5,000 Unit/1 Ml Vial SUB-Q 5,000 unit Q12HR SHOBHA Administration Hydromorphone HCl 0.5 mg 12/28/20 22:22 Hydromorphone 1 Mg/1 Ml Inj IV Q3H PRN Pain , Severe (7-10) REMDESIVIR 100 mg/ Sodium 250 mls @ 500 mls/hr 12/30/20 21:00 01/01/21 22:50 Chloride IV 01/02/21 21:29 500 mls/hr Q24HR@2100 SHOBHA Administration Insulin Human Lispro 0 unit 12/29/20 07:30 01/02/21 08:05 Insulin Lispro 100 Unit/Ml SUB-Q 3 unit ACHS [facility] Administration Protocol Insulin Human NPH 10 unit 12/31/20 14:30 01/02/21 08:05 Insulin Nph, Human 100 Unit/1 Ml SUB-Q 10 unit BIDDIAB SHOBHA Administration Lisinopril 2.5 mg 12/29/20 10:00 01/02/21 09:36 Lisinopril 5 Mg Tab PO Not Given QDAY SHOBHA Magnesium Oxide 400 mg 12/29/20 10:00 01/02/21 09:35 Magnesium Oxide 400 Mg Tab PO 400 mg QDAY SHOBHA Administration Metoclopramide HCl 10 mg 12/28/20 22:22 Metoclopramide 10 Mg/2 Ml Inj IV Q6H PRN Nausea And Vomiting Morphine Sulfate 2 mg 12/28/20 22:22 Morphine 2 Mg/1 Ml Inj IV Q4H PRN Pain, Moderate (4-6) Ondansetron HCl 4 mg 12/28/20 22:19 Ondansetron 4 Mg/2 Ml Inj IV Q8H PRN Nausea And Vomiting Sodium Chloride 10 ml 12/28/20 23:00 01/02/21 09:41 Sodium Chloride 0.9% 10 Ml Flush Syringe IV 10 ml BID SHOBHA Administration Sodium Chloride 10 ml 12/28/20 22:19 12/28/20 23:10 Sodium Chloride 0.9% 10 Ml Flush Syringe IV 10 ml PRN PRN Administration LINE FLUSH Sodium Chloride 50 ml 12/29/20 16:00 01/01/21 22:50 Sodium Chloride 0.9% 50 Ml Ivpb IV 01/02/21 21:01 50 ml Q24HR@2100 SHOBHA Administration Trazodone HCl 100 mg 12/29/20 22:00 01/01/21 22:51 Trazodone 100 Mg Tab PO 100 mg QHS SHOBHA Administration Zinc Sulfate 220 mg 12/30/20 10:00 01/02/21 09:35 Zinc Sulfate 220 Mg Cap PO 220 mg BID SHOBHA Administration Nutrition/Malnutrition Assess - Dietary Evaluation Nutrition/Malnutrition Findings: Nutrition Notes Start: 12/29/20 14:56 Freq: Status: Active Protocol: Document 12/29/20 14:56 MAHESH (Rec: 12/29/20 15:12 MAHESH [id number]) Nutrition Notes Need for Assessment generated from: MD Order Initial or Follow up Assessment Current Diagnosis Diabetes,Hypertension Other Pertinent Diagnosis SIRS, Possible COVID-19 Current Diet Consistent Carbohydrate Diet ( since B 12/29) Labs/Tests 12/29: Na 135, BUN 19, Glu 302 . Pertinent Medications Reviewed. Height 5 ft 1 in Weight 69.4 kg [place] Body Weight (kg) 47.72 BMI 28.9 Weight Status Overweight Subjective/Other Information Pt with initial stage of dementia, Waiting for COVID results. Pt is no adequate subject for nutrition education, has assisted living. Percent of energy/protein needs met: Consistent Carbohydrate Diet will provide for energy/ protein needs (2061 Kcal/91 G) , during LOS. Burn Absent Trauma Absent GI Symptoms None Food Allergy No Skin Integrity/Comment Integumentary; clear, warm, dry. #1 Nutrition Diagnosis Altered nutrition-related laboratory values Etiology Pt Hx of T2DM and HTN now exacerbated with SIRS and possible COVID-19 diagnosis As Evidenced by Signs and Symptoms Chemistry lab values out of acceptable ranges, and MD diagnosis Is patient on ventilator? No Is Patient Ambulatory and/or Out of Bed Yes REE-([place]-St. Jeor-ambulatory/OOB) [ 1451.294 NUTR.[email or web address]] Kcal/Kg value to use for calculation 29 Approximate Energy Requirements Using 2013 kcal/Kg Calculation Used for Recommendations Kcal/kg Additional Notes Protein: 0.8-1.0 g/Kg/day; 38- 48 g/day; 152-192 Kcal/day ( from IBW). Fluids: 1.0 ml/Kcal, or as per MD. Nutrition Intervention Change Diet Order: Continue prescribed Consistent Carbohydrate Diet during LOS Goal #1 Maintain body weight within +/ -3% of actual BWt during LOS. Goal #2 Reach and maintain acceptable chemistry lab values during LOS. Follow-Up By: 01/05/21 Additional Comments Continue monitoring acceptance of food, % intake of PO meals , and BM.
[2021-01-02] MEDS: SODIUM CHLORIDE 0.9% 50 ML IVPB IV SCH (21:32)
[2021-01-02] MEDS: REMDESIVIR 100 MG in SODIUM CHLORIDE 0.9% 250ML 250 ML IV SCH (21:32)
[2021-01-02] MEDS: traZODone 100 MG TAB PO SCH (21:32)
[2021-01-03] MEDS: INSULIN NPH, HUMAN 100 UNIT/1 ML SUB-Q SCH ×2 (08:13→16:20)
[2021-01-03] MEDS: INSULIN LISPRO 100 UNIT/ML SUB-Q SCH ×4 (08:14→22:21)
[2021-01-03] MEDS: CHOLECALCIFEROL (VIT D3) 5,000 UNIT TAB PO SCH (09:55)
[2021-01-03] MEDS: MAGNESIUM OXIDE 400 MG TAB PO SCH (09:55)
[2021-01-03] MEDS: ASCORBIC ACID 500 MG TAB PO SCH ×2 (09:55→22:21)
[2021-01-03] MEDS: ASPIRIN 325 MG TAB PO SCH (09:55)
[2021-01-03] MEDS: dexAMETHasone 4 MG/ML VIAL IV SCH (09:55)
[2021-01-03] MEDS: HEPARIN 5,000 UNIT/1 ML VIAL SUB-Q SCH ×2 (09:55→22:22)
[2021-01-03] MEDS: FAMOTIDINE 20 MG TAB PO SCH ×2 (09:55→22:21)
[2021-01-03] MEDS: ZINC SULFATE 220 MG CAP PO SCH ×2 (09:55→22:21)
[2021-01-03] MEDS: LISINOPRIL 5 MG TAB PO SCH (09:58)
--- NOTE | 2021-01-03 11:00 | Progress Note ---
Assessment and Plan - Patient Problems (1) Suspected 2019 novel coronavirus infection Current Visit: Yes Status: Acute Plan to address problem: Coronavirus protocol, supplemental oxygen, pulse oximetry, nebulizer therapy, supportive care. (2) Vascular dementia Current Visit: Yes Status: Acute Qualifiers: Dementia behavioral disturbance: without behavioral disturbance Qualified Code(s): F01.50 - Vascular dementia without behavioral disturbance Plan to address problem: Verbal prompting, verbal redirection, benzodiazepine therapy as clinically indicated. (3) Cerebral atherosclerosis Current Visit: Yes Status: Acute Plan to address problem: Verbal prompting, verbal redirection, antiplatelet therapy as clinically indicated. (4) Acute encephalopathy Current Visit: Yes Status: Acute Plan to address problem: Supportive care, neuro check, seizure precautions, aspiration precautions, fall precautions (5) DVT prophylaxis Current Visit: Yes Status: Acute Plan to address problem: SCD to bilateral lower extremities while in bed (6) Advance care planning Current Visit: Yes Status: Acute Plan to address problem: Disease education conducted, care plan discussed, diagnoses discussed, prognosis discussed, patient is full code, patient is pending [facility] facility placement as per family request. History Interval history: 75 YO Female HD #6 with coronavirus infection, lung cancer, metabolic encephalopathy, vascular dementia, cerebral Atherosclerosis. Patient is at baseline level of cognition and function. Patient pending halfway placement. No acute decompensation overnight. Patient remains medically stable. Hospitalist Physical - Constitutional Vitals: Temp Pulse Resp BP Pulse Ox 97.7 F 56 L 18 134/57 97 01/03/21 05:04 01/03/21 09:58 01/03/21 05:04 01/03/21 09:58 01/03/21 05:04 General appearance: Present: mild distress, well-nourished - EENT Eyes: Present: PERRL ENT: dentition normal - Neck Neck: Present: supple - Respiratory Respiratory: bilateral: diminished - Cardiovascular Rhythm: regular Heart Sounds: Present: S1 & S2 - Extremities Extremities: no ischemia Peripheral Pulses: within normal limits - Abdominal General gastrointestinal: soft, non-tender, non-distended - Psychiatric Psychiatric: no appropriate mood/affect, no intact judgment & insight, no memory intact, cooperative - Neurologic Neurologic: CNII-XII intact HEART Score - HEART Score Risk factors: 1-2 risk factors Troponin: Troponin T < 0.010 ng/mL (0.00-0.029) 12/28/20 13:37 Troponin: < normal limit - Critical Actions Critical Actions: 0-3 pts:0.9-1.7%risk of adverse cardiac event.Candidate for discharge Results - Labs CBC & Chem 7: 12/29/20 05:37 01/01/21 05:56 Labs: Laboratory Last Values WBC 4.3 K/mm3 (4.5-11.0) L 12/29/20 05:37 RBC 4.04 M/mm3 (3.65-5.03) 12/29/20 05:37 Hgb 10.7 gm/dl (10.1-14.3) 12/29/20 05:37 Hct 32.4 % (30.3-42.9) 12/29/20 05:37 MCV 80 fl (79-97) 12/29/20 05:37 MCH 27 pg (28-32) L 12/29/20 05:37 MCHC 33 % (30-34) 12/29/20 05:37 RDW 17.2 % (13.2-15.2) H 12/29/20 05:37 Plt Count 205 K/mm3 (140-440) 12/29/20 05:37 Lymph % (Auto) 9.5 % (13.4-35.0) L 12/29/20 05:37 [place] % (Auto) 9.8 % (0.0-7.3) H 12/29/20 05:37 Eos % (Auto) 0.8 % (0.0-4.3) 12/29/20 05:37 Baso % (Auto) 0.4 % (0.0-1.8) 12/29/20 05:37 Lymph # (Auto) 0.4 K/mm3 (1.2-5.4) L 12/29/20 05:37 [place] # (Auto) 0.4 K/mm3 (0.0-0.8) 12/29/20 05:37 Eos # (Auto) 0.0 K/mm3 (0.0-0.4) 12/29/20 05:37 Baso # (Auto) 0.0 K/mm3 (0.0-0.1) 12/29/20 05:37 Seg Neutrophils % 79.5 % (40.0-70.0) H 12/29/20 05:37 Seg Neutrophils # 3.4 K/mm3 (1.8-7.7) 12/29/20 05:37 APTT 34.2 Sec. (24.2-36.6) 12/28/20 13:37 D-Dimer 1149.31 ng/mlDDU (0-234) H 01/01/21 23:23 Sodium 136 mmol/L (137-145) L 01/01/21 05:56 Potassium 3.9 mmol/L (3.6-5.0) 01/01/21 05:56 Chloride 101.5 mmol/L (98-107) 01/01/21 05:56 Carbon Dioxide 23 mmol/L (22-30) 01/01/21 05:56 Anion Gap 15 mmol/L 01/01/21 05:56 BUN 21 mg/dL (7-17) H 01/01/21 05:56 Creatinine 0.8 mg/dL (0.6-1.2) 01/01/21 05:56 Estimated GFR > 60 ml/min 01/01/21 05:56 BUN/Creatinine Ratio 26 % 01/01/21 05:56 Glucose 195 mg/dL (65-100) H 01/01/21 05:56 POC Glucose 257 mg/dL (70-105) H 01/03/21 08:06 Lactic Acid 0.90 mmol/L (0.7-2.0) 12/28/20 16:02 Calcium 8.5 mg/dL (8.4-10.2) 01/01/21 05:56 Ferritin 1039.0 ng/mL (10.0-200.0) H 01/01/21 23:23 Total Bilirubin 0.30 mg/dL (0.1-1.2) 01/01/21 05:56 AST 27 units/L (5-40) 01/01/21 05:56 ALT 12 units/L (7-56) 01/01/21 05:56 Alkaline Phosphatase 78 units/L (35-129) 01/01/21 05:56 Lactate Dehydrogenase 317 units/L (91-180) H 01/01/21 23:23 Troponin T < 0.010 ng/mL (0.00-0.029) 12/28/20 13:37 C-Reactive Protein 13.30 mg/dL (0.00-1.30) H 01/01/21 23:23 Total Protein 6.0 g/dL (6.3-8.2) L D 01/01/21 05:56 Albumin 2.5 g/dL (3.9-5) L 01/01/21 05:56 Albumin/Globulin Ratio 0.7 % 01/01/21 05:56 Triglycerides 104 mg/dL (2-149) 01/01/21 09:14 Cholesterol 88 mg/dL (50-199) 01/01/21 09:14 LDL Cholesterol Direct 41 mg/dL (50-130) L 01/01/21 09:14 HDL Cholesterol 24 mg/dL (40-59) L 01/01/21 09:14 Cholesterol/HDL Ratio 3.66 % 01/01/21 09:14 Procalcitonin 1.94 ng/mL (<0.15) 01/01/21 23:23 Urine Color Yellow (Yellow) 12/28/20 Unknown Urine Turbidity Clear (Clear) 12/28/20 Unknown Urine pH 5.0 (5.0-7.0) 12/28/20 Unknown Ur Specific [place] 1.012 (1.003-1.030) 12/28/20 Unknown Urine Protein 30 mg/dl mg/dL (Negative) 12/28/20 Unknown Urine Glucose (UA) 50 mg/dL (Negative) 12/28/20 Unknown Urine Ketones 20 mg/dL (Negative) 12/28/20 Unknown Urine Blood Sm (Negative) 12/28/20 Unknown Urine Nitrite Neg (Negative) 12/28/20 Unknown Urine Bilirubin Neg (Negative) 12/28/20 Unknown Urine Urobilinogen < 2.0 mg/dL (<2.0) 12/28/20 Unknown Ur Leukocyte Esterase Neg (Negative) 12/28/20 Unknown Urine WBC (Auto) 4.0 /HPF (0.0-6.0) 12/28/20 Unknown Urine RBC (Auto) 1.0 /HPF (0.0-6.0) 12/28/20 Unknown Urine Mucus Few /HPF 12/28/20 Unknown Coronavirus (PCR) Positive (Negative) A 12/29/20 08:00 Microbiology: Microbiology 12/28/20 13:37 Peripheral/Venous Blood Culture - Final NO GROWTH AFTER 5 DAYS 12/28/20 13:37 Peripheral/Venous Blood Culture - Final NO GROWTH AFTER 5 DAYS [place]/IV: Voiding Method Incontinent Active Medications - Current Medications Current Medications: Generic Name Dose Route Start Last Admin Trade Name Freq PRN Reason Stop Dose Admin Acetaminophen 650 mg 12/28/20 22:19 12/31/20 10:54 Acetaminophen 325 Mg Tab PO 650 mg Q4H PRN Administration Pain MILD(1-3)/Fever >100.5/ALBARADO Ascorbic Acid 1,000 mg 12/30/20 10:00 01/03/21 09:55 Ascorbic Acid 500 Mg Tab PO 1,000 mg BID SHOBHA Administration Aspirin 325 mg 01/01/21 10:00 01/03/21 09:55 Aspirin 325 Mg Tab PO 325 mg QDAY SHOBHA Administration Cholecalciferol 5,000 unit 12/30/20 10:00 01/03/21 09:55 Cholecalciferol (Vit D3) 5,000 Unit Tab PO 5,000 unit DAILY SHOBHA Administration Colchicine 0.6 mg 12/29/20 18:00 01/02/21 09:37 Colchicine 0.6 Mg Tab PO 0.6 mg DAILY SHOBHA Administration Dexamethasone 8 mg 12/29/20 10:00 01/03/21 09:55 Dexamethasone 4 Mg/Ml Vial IV 01/06/21 10:01 8 mg Q24HR SHOBHA Administration Dextrose 0 ml 12/28/20 22:48 Dextrose 50% In Water (25gm) 50 Ml Syringe IV Q30MIN PRN Hypoglycemia Protocol Famotidine 20 mg 12/29/20 22:00 01/03/21 09:55 Famotidine 20 Mg Tab PO 20 mg BID SHOBHA Administration Heparin Sodium (Porcine) 5,000 unit 12/29/20 10:00 01/03/21 09:55 Heparin 5,000 Unit/1 Ml Vial SUB-Q 5,000 unit Q12HR SHOBHA Administration Hydromorphone HCl 0.5 mg 12/28/20 22:22 Hydromorphone 1 Mg/1 Ml Inj IV Q3H PRN Pain , Severe (7-10) Insulin Human Lispro 0 unit 12/29/20 07:30 01/03/21 08:14 Insulin Lispro 100 Unit/Ml SUB-Q 3 unit ACHS SHOBHA Administration Protocol Insulin Human NPH 10 unit 12/31/20 14:30 01/03/21 08:13 Insulin Nph, Human 100 Unit/1 Ml SUB-Q 10 unit BIDDIAB SHOBHA Administration Lisinopril 2.5 mg 12/29/20 10:00 01/03/21 09:58 Lisinopril 5 Mg Tab PO 2.5 mg QDAY SHOBHA Administration Magnesium Oxide 400 mg 12/29/20 10:00 01/03/21 09:55 Magnesium Oxide 400 Mg Tab PO 400 mg QDAY SHOBHA Administration Metoclopramide HCl 10 mg 12/28/20 22:22 Metoclopramide 10 Mg/2 Ml Inj IV Q6H PRN Nausea And Vomiting Morphine Sulfate 2 mg 12/28/20 22:22 Morphine 2 Mg/1 Ml Inj IV Q4H PRN Pain, Moderate (4-6) Ondansetron HCl 4 mg 12/28/20 22:19 Ondansetron 4 Mg/2 Ml Inj IV Q8H PRN Nausea And Vomiting Sodium Chloride 10 ml 12/28/20 23:00 01/03/21 09:56 Sodium Chloride 0.9% 10 Ml Flush Syringe IV 10 ml BID SHOBHA Administration Sodium Chloride 10 ml 12/28/20 22:19 12/28/20 23:10 Sodium Chloride 0.9% 10 Ml Flush Syringe IV 10 ml PRN PRN Administration LINE FLUSH Trazodone HCl 100 mg 12/29/20 22:00 01/02/21 21:32 Trazodone 100 Mg Tab PO 100 mg QHS SHOBHA Administration Zinc Sulfate 220 mg 12/30/20 10:00 01/03/21 09:55 Zinc Sulfate 220 Mg Cap PO 220 mg BID SHOBHA Administration Nutrition/Malnutrition Assess - Dietary Evaluation Nutrition/Malnutrition Findings: Nutrition Notes Start: 12/29/20 14:56 Freq: Status: Active Protocol: Document 12/29/20 14:56 MAHESH (Rec: 12/29/20 15:12 MAHESH [id number]) Nutrition Notes Need for Assessment generated from: MD Order Initial or Follow up Assessment Current Diagnosis Diabetes,Hypertension Other Pertinent Diagnosis SIRS, Possible COVID-19 Current Diet Consistent Carbohydrate Diet ( since B 12/29) Labs/Tests 12/29: Na 135, BUN 19, Glu 302 . Pertinent Medications Reviewed. Height 5 ft 1 in Weight 69.4 kg [place] Body Weight (kg) 47.72 BMI 28.9 Weight Status Overweight Subjective/Other Information Pt with initial stage of dementia, Waiting for COVID results. Pt is no adequate subject for nutrition education, has assisted living. Percent of energy/protein needs met: Consistent Carbohydrate Diet will provide for energy/ protein needs (2061 Kcal/91 G) , during LOS. Burn Absent Trauma Absent GI Symptoms None Food Allergy No Skin Integrity/Comment Integumentary; clear, warm, dry. #1 Nutrition Diagnosis Altered nutrition-related laboratory values Etiology Pt Hx of T2DM and HTN now exacerbated with SIRS and possible COVID-19 diagnosis As Evidenced by Signs and Symptoms Chemistry lab values out of acceptable ranges, and MD diagnosis Is patient on ventilator? No Is Patient Ambulatory and/or Out of Bed Yes REE-([place]-St. Jeor-ambulatory/OOB) [ 1451.294 NUTR.[email or web address]] Kcal/Kg value to use for calculation 29 Approximate Energy Requirements Using 2013 kcal/Kg Calculation Used for Recommendations Kcal/kg Additional Notes Protein: 0.8-1.0 g/Kg/day; 38- 48 g/day; 152-192 Kcal/day ( from IBW). Fluids: 1.0 ml/Kcal, or as per MD. Nutrition Intervention Change Diet Order: Continue prescribed Consistent Carbohydrate Diet during LOS Goal #1 Maintain body weight within +/ -3% of actual BWt during LOS. Goal #2 Reach and maintain acceptable chemistry lab values during LOS. Follow-Up By: 01/05/21 Additional Comments Continue monitoring acceptance of food, % intake of PO meals , and BM.
[2021-01-03 12:16] LABS: Bilirubin,Urine NEG (Negative); Blood,Urine NEG (Negative); Color,Urine Yellow (Yellow); Urobilinogen,Urine < 2.0 mg/dL (<2.0)
[2021-01-03] MEDS: COLCHICINE 0.6 MG TAB PO SCH (12:27)
[2021-01-03] MEDS: traZODone 100 MG TAB PO SCH (22:21)
[2021-01-04] MEDS: INSULIN NPH, HUMAN 100 UNIT/1 ML SUB-Q SCH ×2 (08:32→23:17)
[2021-01-04] MEDS: INSULIN LISPRO 100 UNIT/ML SUB-Q SCH ×4 (08:32→23:09)
[2021-01-04] MEDS: ASPIRIN 325 MG TAB PO SCH (10:13)
[2021-01-04] MEDS: HEPARIN 5,000 UNIT/1 ML VIAL SUB-Q SCH ×2 (10:13→23:07)
[2021-01-04] MEDS: LISINOPRIL 5 MG TAB PO SCH (10:13)
[2021-01-04] MEDS: ASCORBIC ACID 500 MG TAB PO SCH ×2 (10:13→23:07)
[2021-01-04] MEDS: dexAMETHasone 4 MG/ML VIAL IV SCH (10:13)
[2021-01-04] MEDS: CHOLECALCIFEROL (VIT D3) 5,000 UNIT TAB PO SCH (10:13)
[2021-01-04] MEDS: MAGNESIUM OXIDE 400 MG TAB PO SCH (10:14)
[2021-01-04] MEDS: ZINC SULFATE 220 MG CAP PO SCH ×2 (13:39→23:07)
[2021-01-04] MEDS: COLCHICINE 0.6 MG TAB PO SCH (13:39)
[2021-01-04] MEDS: FAMOTIDINE 20 MG TAB PO SCH ×2 (13:39→23:07)
--- NOTE | 2021-01-04 19:07 | Progress Note ---
Assessment and Plan Assessment and plan: Assessment and Plan - Patient Problems (1) 2019 novel coronavirus infection Current Visit: Yes Status: Acute Plan to address problem: Continue coronavirus protocol, supplemental oxygen as needed, pulse oximetry, nebulizer therapy, supportive care. (2) Vascular dementia Current Visit: Yes Status: Acute Qualifiers: Dementia behavioral disturbance: without behavioral disturbance Qualified Code(s): F01.50 - Vascular dementia without behavioral disturbance Plan to address problem: Verbal prompting, verbal redirection, redirection for confusion as clinically indicated. (3) Cerebral atherosclerosis Current Visit: Yes Status: Acute Plan to address problem: Verbal prompting, verbal redirection, antiplatelet therapy as clinically indicated. (4) Acute encephalopathy superimposed on dementia, resolved Current Visit: Yes Status: Acute Plan to address problem: Supportive care, neuro check, aspiration precautions, fall precautions (5) DVT prophylaxis Current Visit: Yes Status: Acute Plan to address problem: SCD to bilateral lower extremities while in bed (6) Advance care planning Current Visit: Yes Status: Acute Plan to address problem: Disease education conducted, care plan discussed, diagnoses discussed, prognosis discussed, patient is full code, patient is pending snf facility placement as per family request. History Interval history: 75 YO Female is admitted for coronavirus infection, lung cancer, metabolic encephalopathy, vascular dementia, cerebral Atherosclerosis. Patient is at baseline level of cognition and function. Patient pending detention placement. No acute decompensation overnight. Patient remains medically stable for discharge. Discussed with the nursing staff and rn case manager. History Interval history: Patient is alert with fluent speech but somewhat still confused disoriented. She is lying flat in bed without respiratory distress. She is waiting for subacute rehab placement. Hospitalist Physical - Constitutional Vitals: Temp Pulse Resp BP Pulse Ox 98.2 F 84 16 128/64 100 01/04/21 18:18 01/04/21 18:18 01/04/21 18:18 01/04/21 18:18 01/04/21 18:18 General appearance: Present: no acute distress, well-nourished, other (Alert but confused) - EENT Eyes: Present: PERRL, EOM intact ENT: hearing intact - Neck Neck: Present: supple - Respiratory Respiratory effort: labored Respiratory: bilateral: diminished - Cardiovascular Rhythm: regular - Extremities Extremities: No edema - Abdominal General gastrointestinal: soft, non-distended, normal bowel sounds Localized gastrointestinal: tender: diffuse - Integumentary Integumentary: Absent: rash - Psychiatric Psychiatric: cooperative - Neurologic Neurologic: other (Chronic left hemiparesis including left lower facial, left arm and left leg weakness. Speech is fluent. Patient is fully alert and conversational but confused/disoriented.) HEART Score - HEART Score Risk factors: 1-2 risk factors Troponin: Troponin T < 0.010 ng/mL (0.00-0.029) 12/28/20 13:37 Troponin: < normal limit - Critical Actions Critical Actions: 0-3 pts:0.9-1.7%risk of adverse cardiac event.Candidate for discharge Results - Labs CBC & Chem 7: 12/29/20 05:37 01/01/21 05:56 Labs: Laboratory Last Values WBC 4.3 K/mm3 (4.5-11.0) L 12/29/20 05:37 RBC 4.04 M/mm3 (3.65-5.03) 12/29/20 05:37 Hgb 10.7 gm/dl (10.1-14.3) 12/29/20 05:37 Hct 32.4 % (30.3-42.9) 12/29/20 05:37 MCV 80 fl (79-97) 12/29/20 05:37 MCH 27 pg (28-32) L 12/29/20 05:37 MCHC 33 % (30-34) 12/29/20 05:37 RDW 17.2 % (13.2-15.2) H 12/29/20 05:37 Plt Count 205 K/mm3 (140-440) 12/29/20 05:37 Lymph % (Auto) 9.5 % (13.4-35.0) L 12/29/20 05:37 [place] % (Auto) 9.8 % (0.0-7.3) H 12/29/20 05:37 Eos % (Auto) 0.8 % (0.0-4.3) 12/29/20 05:37 Baso % (Auto) 0.4 % (0.0-1.8) 12/29/20 05:37 Lymph # (Auto) 0.4 K/mm3 (1.2-5.4) L 12/29/20 05:37 [place] # (Auto) 0.4 K/mm3 (0.0-0.8) 12/29/20 05:37 Eos # (Auto) 0.0 K/mm3 (0.0-0.4) 12/29/20 05:37 Baso # (Auto) 0.0 K/mm3 (0.0-0.1) 12/29/20 05:37 Seg Neutrophils % 79.5 % (40.0-70.0) H 12/29/20 05:37 Seg Neutrophils # 3.4 K/mm3 (1.8-7.7) 12/29/20 05:37 APTT 34.2 Sec. (24.2-36.6) 12/28/20 13:37 D-Dimer 1149.31 ng/mlDDU (0-234) H 01/01/21 23:23 Sodium 136 mmol/L (137-145) L 01/01/21 05:56 Potassium 3.9 mmol/L (3.6-5.0) 01/01/21 05:56 Chloride 101.5 mmol/L (98-107) 01/01/21 05:56 Carbon Dioxide 23 mmol/L (22-30) 01/01/21 05:56 Anion Gap 15 mmol/L 01/01/21 05:56 BUN 21 mg/dL (7-17) H 01/01/21 05:56 Creatinine 0.8 mg/dL (0.6-1.2) 01/01/21 05:56 Estimated GFR > 60 ml/min 01/01/21 05:56 BUN/Creatinine Ratio 26 % 01/01/21 05:56 Glucose 195 mg/dL (65-100) H 01/01/21 05:56 POC Glucose 142 mg/dL (70-105) H 01/04/21 17:25 Lactic Acid 0.90 mmol/L (0.7-2.0) 12/28/20 16:02 Calcium 8.5 mg/dL (8.4-10.2) 01/01/21 05:56 Ferritin 1039.0 ng/mL (10.0-200.0) H 01/01/21 23:23 Total Bilirubin 0.30 mg/dL (0.1-1.2) 01/01/21 05:56 AST 27 units/L (5-40) 01/01/21 05:56 ALT 12 units/L (7-56) 01/01/21 05:56 Alkaline Phosphatase 78 units/L (35-129) 01/01/21 05:56 Lactate Dehydrogenase 317 units/L (91-180) H 01/01/21 23:23 Troponin T < 0.010 ng/mL (0.00-0.029) 12/28/20 13:37 C-Reactive Protein 13.30 mg/dL (0.00-1.30) H 01/01/21 23:23 Total Protein 6.0 g/dL (6.3-8.2) L D 01/01/21 05:56 Albumin 2.5 g/dL (3.9-5) L 01/01/21 05:56 Albumin/Globulin Ratio 0.7 % 01/01/21 05:56 Triglycerides 104 mg/dL (2-149) 01/01/21 09:14 Cholesterol 88 mg/dL (50-199) 01/01/21 09:14 LDL Cholesterol Direct 41 mg/dL (50-130) L 01/01/21 09:14 HDL Cholesterol 24 mg/dL (40-59) L 01/01/21 09:14 Cholesterol/HDL Ratio 3.66 % 01/01/21 09:14 Procalcitonin 1.94 ng/mL (<0.15) 01/01/21 23:23 Urine Color Yellow (Yellow) 01/03/21 Unknown Urine Turbidity Clear (Clear) 01/03/21 Unknown Urine pH 5.0 (5.0-7.0) 01/03/21 Unknown Ur Specific [place] 1.016 (1.003-1.030) 01/03/21 Unknown Urine Protein 30 mg/dl mg/dL (Negative) 01/03/21 Unknown Urine Glucose (UA) 150 mg/dL (Negative) 01/03/21 Unknown Urine Ketones Neg mg/dL (Negative) 01/03/21 Unknown Urine Blood Neg (Negative) 01/03/21 Unknown Urine Nitrite Neg (Negative) 01/03/21 Unknown Urine Bilirubin Neg (Negative) 01/03/21 Unknown Urine Urobilinogen < 2.0 mg/dL (<2.0) 01/03/21 Unknown Ur Leukocyte Esterase Neg (Negative) 01/03/21 Unknown Urine WBC (Auto) 3.0 /HPF (0.0-6.0) 01/03/21 Unknown Urine RBC (Auto) 13.0 /HPF (0.0-6.0) 01/03/21 Unknown U Epithel Cells (Auto) 1.0 /HPF (0-13.0) 01/03/21 Unknown Urine Mucus Few /HPF 12/28/20 Unknown Coronavirus (PCR) Positive (Negative) A 12/29/20 08:00 [place]/IV: Voiding Method External Female Catheter Active Medications - Current Medications Current Medications: Generic Name Dose Route Start Last Admin Trade Name Freq PRN Reason Stop Dose Admin Acetaminophen 650 mg 12/28/20 22:19 12/31/20 10:54 Acetaminophen 325 Mg Tab PO 650 mg Q4H PRN Administration Pain MILD(1-3)/Fever >100.5/ALBARADO Ascorbic Acid 1,000 mg 12/30/20 10:00 01/04/21 10:13 Ascorbic Acid 500 Mg Tab PO 1,000 mg BID SHOBHA Administration Aspirin 325 mg 01/01/21 10:00 01/04/21 10:13 Aspirin 325 Mg Tab PO 325 mg QDAY SHOBHA Administration Cholecalciferol 5,000 unit 12/30/20 10:00 01/04/21 10:13 Cholecalciferol (Vit D3) 5,000 Unit Tab PO 5,000 unit DAILY SHOBHA Administration Colchicine 0.6 mg 12/29/20 18:00 01/04/21 13:39 Colchicine 0.6 Mg Tab PO 0.6 mg DAILY SHOBHA Administration Dexamethasone 8 mg 12/29/20 10:00 01/04/21 10:13 Dexamethasone 4 Mg/Ml Vial IV 01/06/21 10:01 8 mg Q24HR SHOBHA Administration Dextrose 0 ml 12/28/20 22:48 Dextrose 50% In Water (25gm) 50 Ml Syringe IV Q30MIN PRN Hypoglycemia Protocol Famotidine 20 mg 12/29/20 22:00 01/04/21 13:39 Famotidine 20 Mg Tab PO 20 mg BID SHOBHA Administration Heparin Sodium (Porcine) 5,000 unit 12/29/20 10:00 01/04/21 10:13 Heparin 5,000 Unit/1 Ml Vial SUB-Q 5,000 unit Q12HR SHOBHA Administration Insulin Human Lispro 0 unit 12/29/20 07:30 01/04/21 13:40 Insulin Lispro 100 Unit/Ml SUB-Q 2 unit ACHS SHOBHA Administration Protocol Insulin Human NPH 10 unit 12/31/20 14:30 01/04/21 08:32 Insulin Nph, Human 100 Unit/1 Ml SUB-Q Not Given BIDDIAB SHOBHA Lisinopril 2.5 mg 12/29/20 10:00 01/04/21 10:13 Lisinopril 5 Mg Tab PO 2.5 mg QDAY SHOBHA Administration Magnesium Oxide 400 mg 12/29/20 10:00 01/04/21 10:14 Magnesium Oxide 400 Mg Tab PO 400 mg QDAY SHOBHA Administration Metoclopramide HCl 10 mg 12/28/20 22:22 Metoclopramide 10 Mg/2 Ml Inj IV Q6H PRN Nausea And Vomiting Morphine Sulfate 2 mg 12/28/20 22:22 Morphine 2 Mg/1 Ml Inj IV Q4H PRN Pain, Moderate (4-6) Ondansetron HCl 4 mg 12/28/20 22:19 Ondansetron 4 Mg/2 Ml Inj IV Q8H PRN Nausea And Vomiting Sodium Chloride 10 ml 12/28/20 23:00 01/04/21 10:14 Sodium Chloride 0.9% 10 Ml Flush Syringe IV 10 ml BID SHOBHA Administration Sodium Chloride 10 ml 12/28/20 22:19 12/28/20 23:10 Sodium Chloride 0.9% 10 Ml Flush Syringe IV 10 ml PRN PRN Administration LINE FLUSH Trazodone HCl 100 mg 12/29/20 22:00 01/03/21 22:21 Trazodone 100 Mg Tab PO 100 mg QHS SHOBHA Administration Zinc Sulfate 220 mg 12/30/20 10:00 01/04/21 13:39 Zinc Sulfate 220 Mg Cap PO 220 mg BID SHOBHA Administration Nutrition/Malnutrition Assess - Dietary Evaluation Nutrition/Malnutrition Findings: Nutrition Notes Start: 12/29/20 14:56 Freq: Status: Active Protocol: Document 12/29/20 14:56 MAHESH (Rec: 12/29/20 15:12 MAHESH [id number]) Nutrition Notes Need for Assessment generated from: MD Order Initial or Follow up Assessment Current Diagnosis Diabetes,Hypertension Other Pertinent Diagnosis SIRS, Possible COVID-19 Current Diet Consistent Carbohydrate Diet ( since B 12/29) Labs/Tests 12/29: Na 135, BUN 19, Glu 302 . Pertinent Medications Reviewed. Height 5 ft 1 in Weight 69.4 kg Evans Body Weight (kg) 47.72 BMI 28.9 Weight Status Overweight Subjective/Other Information Pt with initial stage of dementia, Waiting for COVID results. Pt is no adequate subject for nutrition education, has assisted living. Percent of energy/protein needs met: Consistent Carbohydrate Diet will provide for energy/ protein needs (2061 Kcal/91 G) , during LOS. Burn Absent Trauma Absent GI Symptoms None Food Allergy No Skin Integrity/Comment Integumentary; clear, warm, dry. #1 Nutrition Diagnosis Altered nutrition-related laboratory values Etiology Pt Hx of T2DM and HTN now exacerbated with SIRS and possible COVID-19 diagnosis As Evidenced by Signs and Symptoms Chemistry lab values out of acceptable ranges, and MD diagnosis Is patient on ventilator? No Is Patient Ambulatory and/or Out of Bed Yes REE-([facility]-ambulatory/OOB) [ 1451.294 [id number]] Kcal/Kg value to use for calculation 29 Approximate Energy Requirements Using 2013 kcal/Kg Calculation Used for Recommendations Kcal/kg Additional Notes Protein: 0.8-1.0 g/Kg/day; 38- 48 g/day; 152-192 Kcal/day ( from IBW). Fluids: 1.0 ml/Kcal, or as per MD. Nutrition Intervention Change Diet Order: Continue prescribed Consistent Carbohydrate Diet during LOS Goal #1 Maintain body weight within +/ -3% of actual BWt during LOS. Goal #2 Reach and maintain acceptable chemistry lab values during LOS. Follow-Up By: 01/05/21 Additional Comments Continue monitoring acceptance of food, % intake of PO meals , and BM.
[2021-01-04] MEDS: traZODone 100 MG TAB PO SCH (23:07)
--- NOTE | 2021-01-05 08:39 | Discharge Summary ---
Providers - Providers Date of Admission: 12/28/20 15:03 Attending physician: LLOYD OCONNOR MD 12/28/20 22:22 Consult to Physician [CONS] Routine Comment: Consulting Provider: YARI OH Physician Instructions: Reason For Exam: Acute encephalopathy 12/28/20 22:48 Consult to Dietitian/Nutrition [CONS] Routine Physician Instructions: Reason For Exam: Reason for Consult: Diet education 12/29/20 14:27 Consult to Physician [CONS] Routine Comment: Consulting Provider: ESTHER FRANKLIN Physician Instructions: Reason For Exam: covid 19 pna 12/29/20 18:28 Consult to Wound/ET Nurse [CONS] Routine Reason For Exam: wound eval 12/30/20 16:50 Physical Therapy Evaluation and Treat [CONS] Routine Comment: Reason For Exam: PT for generalized weakness 12/31/20 11:36 Occupational Therapy Evaluate and Treat [CONS] Urgent Comment: Reason For Exam: weakness Primary care physician: [facility]PDESK TECHNICIAN Hospitalization Reason for admission: AMS Condition: Stable Hospital course: 75 YO Female is admitted for coronavirus infection, lung cancer, metabolic encephalopathy, vascular dementia, cerebral Atherosclerosis. Patient is at baseline level of cognition and function. Patient pending residential placement. No acute decompensation overnight. Patient remains medically stable for discharge. Patient is alert with fluent speech but somewhat still confused disoriented. She is lying flat in bed without respiratory distress. She is waiting for subacute rehab placement. Daily clinical course: 12/29/20: Positive for COVID-19, Initiate Covid protocol, consult ID 12/30/20: Continue dexamethasone and remdesivir, wean off O2 as tolerated. ID following, follow inflammatory markers 12/31/20: Noted more left-sided weakness, MRI brain and 2D echo pending -Dexamethasone 6 mg IV/PO daily for 10 days -Remdesivir 200 mg IV q day x 1 followed by 100 mg IV q day x 4 days -Obtain q48-72h inflammatory markers - ferritin, Ddimer, CRP, LDH -Stopped antibiotics due to normal procalcitonin. 01/01/21: Continue remdesivir, and dexamethasone, follow inflammatory markers. Patient on 3 to 4 L nasal cannula O2. Discussed with daughter in details. 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 She is being treated at [facility] by Dr. Bradley. Patient daughter will gather more information from Dr. Bradley about her current cancer treatment. She does not know the name of the chemotherapy pill that patient was taking daily. Patient last dose of remdesivir is tomorrow. Continue dexamethasone. PT recommended SNF placement. Family will decide about CODE STATUS. 01/05: Patient clinical stable for discharge, she has base line dementia and follows some limited command but overal incoherent speech (1) 2019 novel coronavirus infection Current Visit: Yes Status: Acute Plan to address problem: Continue coronavirus protocol, supplemental oxygen as needed, pulse oximetry, nebulizer therapy, supportive care. Patient treated with remdesivir and steroid (2) Vascular dementia Current Visit: Yes Status: Acute Qualifiers: Dementia behavioral disturbance: without behavioral disturbance Qualified Code(s): F01.50 - Vascular dementia without behavioral disturbance Plan to address problem: Verbal prompting, verbal redirection, redirection for confusion as clinically indicated. (3) Cerebral atherosclerosis Current Visit: Yes Status: Acute Plan to address problem: Verbal prompting, verbal redirection, antiplatelet therapy as clinically indicated. (4) Acute encephalopathy superimposed on dementia, resolved Current Visit: Yes Status: Acute Plan to address problem: Supportive care, neuro check, aspiration precautions, fall precautions MRI negative for Acute stroke -- Systemic inflammatory response syndrome (SIRS) All inflammatory markers are elevated IV Decadron initiated Positive for COVID-19, Covid protocol initiated --Acute hypoxic respiratory failure due to COVID-19 pneumonia Empiric antibiotics, albuterol inhalers -- Hypertension Continue antihypertensives and adjust medications -- T2DM (type 2 diabetes mellitus) Continue home insulin and coverage follow hemoglobin A1c -- History of stroke with leftsided weakness Supportive care and physical therapy --h/o dementia, supportive care --[place] cell cancer of skin, treated --History of lung cancer with metastasis to brain Diagnosed 3 months back, patient currently on a daily p.o. chemotherapy by Dr. Bradley at [facility] Holding chemotherapy for now, patient daughter will get back to Dr. Bradley at [facility] to verify when to resume chemotherapy Disposition: 03 RETIREMENT FACILITY Final Discharge Diagnosis (Prints w/discharge instructions): Acute hypoxic respiratory failure due to COVID-19 pneumonia Time spent for discharge: 35 MINS Core Measure Documentation - Palliative Care Palliative Care/ Comfort Measures: Not Applicable - Core Measures Any of the following diagnoses?: none Exam - Physical Exam Narrative exam: General appearance: Present: no acute distress, well-nourished - EENT Eyes: Present: PERRL, EOM intact ENT: hearing intact - Neck Neck: Present: supple - Respiratory Respiratory effort: labored Respiratory: bilateral: diminished - Cardiovascular Rhythm: regular - Extremities Extremities: No edema - Abdominal General gastrointestinal: soft, non-distended, normal bowel sounds Localized gastrointestinal: tender: diffuse - Integumentary Integumentary: Absent: rash - Psychiatric Psychiatric: cooperative - Neurologic Neurologic: other (Chronic left hemiparesis including left lower facial, left arm and left leg weakness. Speech is fluent. Patient is fully alert and conversational although not quit coherent,but confused/disoriented.) - Constitutional Vitals: Temp Pulse Resp BP Pulse Ox 97.9 F 67 18 148/69 100 01/05/21 04:27 01/05/21 04:27 01/05/21 04:27 01/05/21 04:27 01/05/21 04:27 Plan Activity: advance as tolerated, fall precautions Diet: low fat Special Instructions: record daily weights, record daily BP diary Follow up with: PRIMARY CAREMD [Primary Care Provider] - 7 Days THERESE CORNELIUS MD [Staff Physician] - 7 Days Prescriptions: traZODone [Desyrel] 100 mg PO QHS #30 Aspirin 325 mg PO QDAY #30 tablet dexAMETHasone [Dexamethasone] 8 mg PO DAILY #10 tablet Famotidine [Pepcid] 20 mg PO BID #60 tablet Ascorbic Acid [Vitamin C] 1,000 mg PO BID #60 tablet Cholecalciferol (Vitamin D3) [Vitamin D3] 5,000 unit PO DAILY #30 tablet Zinc Sulfate 220 mg PO BID #30 capsule
[2021-01-05] MEDS: MAGNESIUM OXIDE 400 MG TAB PO SCH (10:30)
[2021-01-05] MEDS: CHOLECALCIFEROL (VIT D3) 5,000 UNIT TAB PO SCH (10:30)
[2021-01-05] MEDS: LISINOPRIL 5 MG TAB PO SCH (10:30)
[2021-01-05] MEDS: dexAMETHasone 4 MG/ML VIAL IV SCH (10:30)
[2021-01-05] MEDS: ASCORBIC ACID 500 MG TAB PO SCH ×2 (10:31→23:50)
[2021-01-05] MEDS: HEPARIN 5,000 UNIT/1 ML VIAL SUB-Q SCH ×2 (10:31→23:50)
[2021-01-05] MEDS: FAMOTIDINE 20 MG TAB PO SCH ×2 (10:31→23:50)
[2021-01-05] MEDS: ZINC SULFATE 220 MG CAP PO SCH ×2 (10:32→23:49)
[2021-01-05] MEDS: INSULIN NPH, HUMAN 100 UNIT/1 ML SUB-Q SCH ×2 (10:33→19:59)
[2021-01-05] MEDS: COLCHICINE 0.6 MG TAB PO SCH (10:33)
[2021-01-05] MEDS: INSULIN LISPRO 100 UNIT/ML SUB-Q SCH ×4 (10:33→23:52)
[2021-01-05] MEDS: ASPIRIN 325 MG TAB PO SCH (10:33)
[2021-01-05] MEDS: traZODone 100 MG TAB PO SCH (23:50)
[2021-01-06] MEDS: LISINOPRIL 5 MG TAB PO SCH (09:46)
--- NOTE | 2021-01-06 09:46 | Progress Note ---
Assessment and Plan Assessment and plan: 75 YO Female is admitted for coronavirus infection, lung cancer, metabolic encephalopathy, vascular dementia, cerebral Atherosclerosis. Patient is at baseline level of cognition and function. Patient [facility]. No acute decompensation overnight. Patient remains medically stable for discharge. Patient is alert with fluent speech but somewhat still confused disoriented. She is lying flat in bed without respiratory distress. She is waiting for subacute rehab placement. Daily clinical course: 12/29/20: Positive for COVID-19, Initiate Covid protocol, consult ID 12/30/20: Continue dexamethasone and remdesivir, wean off O2 as tolerated. ID following, follow inflammatory markers 12/31/20: Noted more left-sided weakness, MRI brain and 2D echo pending -Dexamethasone 6 mg IV/PO daily for 10 days -Remdesivir 200 mg IV q day x 1 followed by 100 mg IV q day x 4 days -Obtain q48-72h inflammatory markers - ferritin, Ddimer, CRP, LDH -Stopped antibiotics due to normal procalcitonin. 01/01/21: Continue remdesivir, and dexamethasone, follow inflammatory markers. Patient on 3 to 4 L nasal cannula O2. Discussed with daughter in details. 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 She is being treated at [place] by Dr. Bradley. Patient daughter will gather more information from Dr. Bradley about her current cancer treatment. She does not know the name of the chemotherapy pill that patient was taking daily. Patient last dose of remdesivir is tomorrow. Continue dexamethasone. PT recommended SNF placement. Family will decide about CODE STATUS. 01/05: Patient clinical stable for discharge, she has base line dementia and follows some limited command but overal incoherent speech 01/06: Adjust insulin. Awaiting auth for placement. She is much more alert and awake responsive. Speech is coherent. Stable for discharge (1) 2019 novel coronavirus infection Current Visit: Yes Status: Acute Plan to address problem: Continue coronavirus protocol, supplemental oxygen as needed, pulse oximetry, nebulizer therapy, supportive care. Patient treated with remdesivir and steroid (2) Vascular dementia Current Visit: Yes Status: Acute Qualifiers: Dementia behavioral disturbance: without behavioral disturbance Qualified Code(s): F01.50 - Vascular dementia without behavioral disturbance Plan to address problem: Verbal prompting, verbal redirection, redirection for confusion as clinically indicated. (3) Cerebral atherosclerosis Current Visit: Yes Status: Acute Plan to address problem: Verbal prompting, verbal redirection, antiplatelet therapy as clinically indicated. (4) Acute encephalopathy superimposed on dementia, resolved Current Visit: Yes Status: Acute Plan to address problem: Supportive care, neuro check, aspiration precautions, fall precautions MRI negative for Acute stroke -- Systemic inflammatory response syndrome (SIRS) All inflammatory markers are elevated IV Decadron initiated Positive for COVID-19, Covid protocol initiated --Acute hypoxic respiratory failure due to COVID-19 pneumonia Empiric antibiotics, albuterol inhalers -- Hypertension Continue antihypertensives and adjust medications -- T2DM (type 2 diabetes mellitus) Continue home insulin and coverage follow hemoglobin A1c -- History of stroke with leftsided weakness Supportive care and physical therapy --h/o dementia, supportive care --Manpreet cell cancer of skin, treated --History of lung cancer with metastasis to brain Diagnosed 3 months back, patient currently on a daily p.o. chemotherapy by Dr. Bradley at [place] Holding chemotherapy for now, patient daughter will get back to Dr. Bradley at [place] to verify when to resume chemotherapy History Interval history: Patient seen and examined resting comfortably no new complaints much more awake and alert today. Hospitalist Physical - Physical exam Narrative exam: General appearance: Present: no acute distress, well-nourished - EENT Eyes: Present: PERRL, EOM intact ENT: hearing intact - Neck Neck: Present: supple - Respiratory Respiratory effort: labored Respiratory: bilateral: diminished - Cardiovascular Rhythm: regular - Extremities Extremities: No edema - Abdominal General gastrointestinal: soft, non-distended, normal bowel sounds Localized gastrointestinal: tender: diffuse - Integumentary Integumentary: Absent: rash - Psychiatric Psychiatric: cooperative - Neurologic Neurologic: other (Chronic left hemiparesis including left lower facial, left arm and left leg weakness. Speech is fluent. Patient is fully alert and conversational no further confusion noted.) - Constitutional Vitals: Temp Pulse Resp BP Pulse Ox 97.4 F L 65 19 138/66 96 01/06/21 04:43 01/06/21 04:43 01/06/21 04:43 01/06/21 04:43 01/06/21 09:26 General appearance: Present: no acute distress, well-nourished, other (Alert but confused) HEART Score - HEART Score Risk factors: 1-2 risk factors Troponin: Troponin T < 0.010 ng/mL (0.00-0.029) 12/28/20 13:37 Troponin: < normal limit - Critical Actions Critical Actions: 0-3 pts:0.9-1.7%risk of adverse cardiac event.Candidate for discharge Results - Labs CBC & Chem 7: 12/29/20 05:37 01/01/21 05:56 Labs: Laboratory Last Values WBC 4.3 K/mm3 (4.5-11.0) L 12/29/20 05:37 RBC 4.04 M/mm3 (3.65-5.03) 12/29/20 05:37 Hgb 10.7 gm/dl (10.1-14.3) 12/29/20 05:37 Hct 32.4 % (30.3-42.9) 12/29/20 05:37 MCV 80 fl (79-97) 12/29/20 05:37 MCH 27 pg (28-32) L 12/29/20 05:37 MCHC 33 % (30-34) 12/29/20 05:37 RDW 17.2 % (13.2-15.2) H 12/29/20 05:37 Plt Count 205 K/mm3 (140-440) 12/29/20 05:37 Lymph % (Auto) 9.5 % (13.4-35.0) L 12/29/20 05:37 [place] % (Auto) 9.8 % (0.0-7.3) H 12/29/20 05:37 Eos % (Auto) 0.8 % (0.0-4.3) 12/29/20 05:37 Baso % (Auto) 0.4 % (0.0-1.8) 12/29/20 05:37 Lymph # (Auto) 0.4 K/mm3 (1.2-5.4) L 12/29/20 05:37 [place] # (Auto) 0.4 K/mm3 (0.0-0.8) 12/29/20 05:37 Eos # (Auto) 0.0 K/mm3 (0.0-0.4) 12/29/20 05:37 Baso # (Auto) 0.0 K/mm3 (0.0-0.1) 12/29/20 05:37 Seg Neutrophils % 79.5 % (40.0-70.0) H 12/29/20 05:37 Seg Neutrophils # 3.4 K/mm3 (1.8-7.7) 12/29/20 05:37 APTT 34.2 Sec. (24.2-36.6) 12/28/20 13:37 D-Dimer 1149.31 ng/mlDDU (0-234) H 01/01/21 23:23 Sodium 136 mmol/L (137-145) L 01/01/21 05:56 Potassium 3.9 mmol/L (3.6-5.0) 01/01/21 05:56 Chloride 101.5 mmol/L (98-107) 01/01/21 05:56 Carbon Dioxide 23 mmol/L (22-30) 01/01/21 05:56 Anion Gap 15 mmol/L 01/01/21 05:56 BUN 21 mg/dL (7-17) H 01/01/21 05:56 Creatinine 0.8 mg/dL (0.6-1.2) 01/01/21 05:56 Estimated GFR > 60 ml/min 01/01/21 05:56 BUN/Creatinine Ratio 26 % 01/01/21 05:56 Glucose 195 mg/dL (65-100) H 01/01/21 05:56 POC Glucose 270 mg/dL (70-105) H 01/06/21 08:25 Lactic Acid 0.90 mmol/L (0.7-2.0) 12/28/20 16:02 Calcium 8.5 mg/dL (8.4-10.2) 01/01/21 05:56 Ferritin 1039.0 ng/mL (10.0-200.0) H 01/01/21 23:23 Total Bilirubin 0.30 mg/dL (0.1-1.2) 01/01/21 05:56 AST 27 units/L (5-40) 01/01/21 05:56 ALT 12 units/L (7-56) 01/01/21 05:56 Alkaline Phosphatase 78 units/L (35-129) 01/01/21 05:56 Lactate Dehydrogenase 317 units/L (91-180) H 01/01/21 23:23 Troponin T < 0.010 ng/mL (0.00-0.029) 12/28/20 13:37 C-Reactive Protein 13.30 mg/dL (0.00-1.30) H 01/01/21 23:23 Total Protein 6.0 g/dL (6.3-8.2) L D 01/01/21 05:56 Albumin 2.5 g/dL (3.9-5) L 01/01/21 05:56 Albumin/Globulin Ratio 0.7 % 01/01/21 05:56 Triglycerides 104 mg/dL (2-149) 01/01/21 09:14 Cholesterol 88 mg/dL (50-199) 01/01/21 09:14 LDL Cholesterol Direct 41 mg/dL (50-130) L 01/01/21 09:14 HDL Cholesterol 24 mg/dL (40-59) L 01/01/21 09:14 Cholesterol/HDL Ratio 3.66 % 01/01/21 09:14 Procalcitonin 1.94 ng/mL (<0.15) 01/01/21 23:23 Urine Color Yellow (Yellow) 01/03/21 Unknown Urine Turbidity Clear (Clear) 01/03/21 Unknown Urine pH 5.0 (5.0-7.0) 01/03/21 Unknown Ur Specific [place] 1.016 (1.003-1.030) 01/03/21 Unknown Urine Protein 30 mg/dl mg/dL (Negative) 01/03/21 Unknown Urine Glucose (UA) 150 mg/dL (Negative) 01/03/21 Unknown Urine Ketones Neg mg/dL (Negative) 01/03/21 Unknown Urine Blood Neg (Negative) 01/03/21 Unknown Urine Nitrite Neg (Negative) 01/03/21 Unknown Urine Bilirubin Neg (Negative) 01/03/21 Unknown Urine Urobilinogen < 2.0 mg/dL (<2.0) 01/03/21 Unknown Ur Leukocyte Esterase Neg (Negative) 01/03/21 Unknown Urine WBC (Auto) 3.0 /HPF (0.0-6.0) 01/03/21 Unknown Urine RBC (Auto) 13.0 /HPF (0.0-6.0) 01/03/21 Unknown U Epithel Cells (Auto) 1.0 /HPF (0-13.0) 01/03/21 Unknown Urine Mucus Few /HPF 12/28/20 Unknown Coronavirus (PCR) Positive (Negative) A 12/29/20 08:00 [place]/IV: Voiding Method External Female Catheter Active Medications - Current Medications Current Medications: Generic Name Dose Route Start Last Admin Trade Name Freq PRN Reason Stop Dose Admin Acetaminophen 650 mg 12/28/20 22:19 12/31/20 10:54 Acetaminophen 325 Mg Tab PO 650 mg Q4H PRN Administration Pain MILD(1-3)/Fever >100.5/ALBARADO Ascorbic Acid 1,000 mg 12/30/20 10:00 01/05/21 23:50 Ascorbic Acid 500 Mg Tab PO 1,000 mg BID SHOBHA Administration Aspirin 325 mg 01/01/21 10:00 01/05/21 10:33 Aspirin 325 Mg Tab PO 325 mg QDAY SHOBHA Administration Cholecalciferol 5,000 unit 12/30/20 10:00 01/05/21 10:30 Cholecalciferol (Vit D3) 5,000 Unit Tab PO 5,000 unit DAILY SHOBHA Administration Colchicine 0.6 mg 12/29/20 18:00 01/05/21 10:33 Colchicine 0.6 Mg Tab PO 0.6 mg DAILY SHOBHA Administration Dexamethasone 8 mg 12/29/20 10:00 01/05/21 10:30 Dexamethasone 4 Mg/Ml Vial IV 01/06/21 10:01 8 mg Q24HR SHOBHA Administration Dextrose 0 ml 12/28/20 22:48 Dextrose 50% In Water (25gm) 50 Ml Syringe IV Q30MIN PRN Hypoglycemia Protocol Famotidine 20 mg 12/29/20 22:00 01/05/21 23:50 Famotidine 20 Mg Tab PO 20 mg BID SHOBHA Administration Heparin Sodium (Porcine) 5,000 unit 12/29/20 10:00 01/05/21 23:50 Heparin 5,000 Unit/1 Ml Vial SUB-Q 5,000 unit Q12HR SHOBHA Administration Insulin Human Lispro 0 unit 12/29/20 07:30 01/05/21 23:52 Insulin Lispro 100 Unit/Ml SUB-Q 4 unit ACHS SHOBHA Administration Protocol Insulin Human NPH 10 unit 12/31/20 14:30 01/05/21 19:59 Insulin Nph, Human 100 Unit/1 Ml SUB-Q 10 unit BIDDIAB SHOBHA Administration Lisinopril 2.5 mg 12/29/20 10:00 01/05/21 10:30 Lisinopril 5 Mg Tab PO 2.5 mg QDAY SHOBHA Administration Magnesium Oxide 400 mg 12/29/20 10:00 01/05/21 10:30 Magnesium Oxide 400 Mg Tab PO 400 mg QDAY SHOBHA Administration Metoclopramide HCl 10 mg 12/28/20 22:22 Metoclopramide 10 Mg/2 Ml Inj IV Q6H PRN Nausea And Vomiting Morphine Sulfate 2 mg 12/28/20 22:22 Morphine 2 Mg/1 Ml Inj IV Q4H PRN Pain, Moderate (4-6) Ondansetron HCl 4 mg 12/28/20 22:19 Ondansetron 4 Mg/2 Ml Inj IV Q8H PRN Nausea And Vomiting Sodium Chloride 10 ml 12/28/20 23:00 01/05/21 23:53 Sodium Chloride 0.9% 10 Ml Flush Syringe IV 10 ml BID SHOBHA Administration Sodium Chloride 10 ml 12/28/20 22:19 12/28/20 23:10 Sodium Chloride 0.9% 10 Ml Flush Syringe IV 10 ml PRN PRN Administration LINE FLUSH Trazodone HCl 100 mg 12/29/20 22:00 01/05/21 23:50 Trazodone 100 Mg Tab PO 100 mg QHS SHOBHA Administration Zinc Sulfate 220 mg 12/30/20 10:00 01/05/21 23:49 Zinc Sulfate 220 Mg Cap PO 220 mg BID SHOBHA Administration Nutrition/Malnutrition Assess - Dietary Evaluation Nutrition/Malnutrition Findings: Nutrition Notes Start: 12/29/20 14:56 Freq: Status: Active Protocol: Document 01/05/21 16:51 MAHESH (Rec: 01/05/21 17:23 MAHESH [id number]) Nutrition Notes Need for Assessment generated from: MD Order,LOS Initial or Follow up Reassessment Current Diagnosis Diabetes,Hypertension Other Pertinent Diagnosis COVID-19, Dementia Current Diet Consistent Carbohydrate - Pureed- Diet (since B 01/01). Labs/Tests 01/01: Na 136, BUN 21, Glu 195 . Pertinent Medications 01/05: Nutritionally unremarkable, Vit C, Vit D3, Zn. Height 5 ft 1 in Weight 67.8 kg [place] Body Weight (kg) 47.72 BMI 28.2 Weight Status Overweight Subjective/Other Information Pt with initial stage of dementia, positive for COVID- 19. Pt is no adequate subject for nutrition education, has assisted living. Percent of energy/protein needs met: Consistent Carbohydrate - Pureed- Diet provides for energy/protein needs (2061 Kcal/91 G), during LOS. Burn Absent Trauma Absent GI Symptoms None Difficulty In Swallowing,Chewing Food Allergy No Skin Integrity/Comment Integumentary; clear, warm, dry. Current % PO Good (75-100%) Minimum of two criteria No physical signs of malnutrition #2 Nutrition Diagnosis Swallowing difficulty,Biting/ Chewing (masticatory) difficulty Etiology Pt diminished ability to chew and swallow food probably associated to current condition. As Evidenced by Signs and Symptoms Since preed diet was provided PO intake of meals was improved as per ADL notes. #1 Nutrition Diagnosis Altered nutrition-related laboratory values Comments: Pt is no adequate subject for nutrition education, has assisted living. Etiology Pt Hx of T2DM and HTN now exacerbated with SIRS and possible COVID-19 diagnosis As Evidenced by Signs and Symptoms Chemistry lab values out of acceptable ranges, and MD diagnosis Is patient on ventilator? No Is Patient Ambulatory and/or Out of Bed No REE-([facility]-confined to bed) 1327.032 Kcal/Kg value to use for calculation 29 Approximate Energy Requirements Using 1966 kcal/Kg Calculation Used for Recommendations Kcal/kg Additional Notes Protein: 0.8-1.0 g/Kg/day; 38- 48 g/day; 152-192 Kcal/day ( from IBW). Fluids: 1.0 ml/Kcal, or as per MD. Nutrition Intervention Change Diet Order: Continue prescribed Consistent Carbohydrate -pureed- Diet during LOS. Goal #1 Maintain body weight within +/ -3% of current BWt during LOS. Goal #2 Reach and maintain acceptable chemistry lab values during LOS. Follow-Up By: 01/12/21 Additional Comments Continue monitoring acceptance of food, % PO intake of meals , Hydration, and BM.
[2021-01-06] MEDS: ASCORBIC ACID 500 MG TAB PO SCH ×2 (09:47→22:55)
[2021-01-06] MEDS: ZINC SULFATE 220 MG CAP PO SCH ×2 (09:47→22:55)
[2021-01-06] MEDS: MAGNESIUM OXIDE 400 MG TAB PO SCH (09:47)
[2021-01-06] MEDS: COLCHICINE 0.6 MG TAB PO SCH (09:53)
[2021-01-06] MEDS: dexAMETHasone 4 MG/ML VIAL IV SCH (09:53)
[2021-01-06] MEDS: ASPIRIN 325 MG TAB PO SCH (09:54)
[2021-01-06] MEDS: CHOLECALCIFEROL (VIT D3) 5,000 UNIT TAB PO SCH (09:54)
[2021-01-06] MEDS: HEPARIN 5,000 UNIT/1 ML VIAL SUB-Q SCH ×2 (09:54→22:56)
[2021-01-06] MEDS: FAMOTIDINE 20 MG TAB PO SCH ×2 (09:54→22:55)
[2021-01-06] MEDS: INSULIN NPH, HUMAN 100 UNIT/1 ML SUB-Q SCH ×3 (09:55→17:43)
[2021-01-06] MEDS: INSULIN LISPRO 100 UNIT/ML SUB-Q SCH ×4 (09:55→23:04)
[2021-01-06] MEDS: traZODone 100 MG TAB PO SCH (22:55)
[2021-01-07] MEDS: MAGNESIUM OXIDE 400 MG TAB PO SCH (09:30)
[2021-01-07] MEDS: LISINOPRIL 5 MG TAB PO SCH (09:30)
[2021-01-07] MEDS: INSULIN LISPRO 100 UNIT/ML SUB-Q SCH ×4 (09:30→21:43)
[2021-01-07] MEDS: ASPIRIN 325 MG TAB PO SCH (09:30)
[2021-01-07] MEDS: ASCORBIC ACID 500 MG TAB PO SCH ×2 (09:30→21:42)
[2021-01-07] MEDS: ZINC SULFATE 220 MG CAP PO SCH ×2 (09:30→21:42)
[2021-01-07] MEDS: HEPARIN 5,000 UNIT/1 ML VIAL SUB-Q SCH ×2 (09:31→21:43)
[2021-01-07] MEDS: INSULIN NPH, HUMAN 100 UNIT/1 ML SUB-Q SCH ×2 (09:31→16:51)
[2021-01-07] MEDS: FAMOTIDINE 20 MG TAB PO SCH ×2 (09:31→21:43)
[2021-01-07] MEDS: CHOLECALCIFEROL (VIT D3) 5,000 UNIT TAB PO SCH (09:32)
--- NOTE | 2021-01-07 13:50 | Discharge Summary ---
Providers - Providers Date of Admission: 12/28/20 15:03 Attending physician: LLOYD OCONNOR MD 12/28/20 22:22 Consult to Physician [CONS] Routine Comment: Consulting Provider: YARI OH Physician Instructions: Reason For Exam: Acute encephalopathy 12/28/20 22:48 Consult to Dietitian/Nutrition [CONS] Routine Physician Instructions: Reason For Exam: Reason for Consult: Diet education 12/29/20 14:27 Consult to Physician [CONS] Routine Comment: Consulting Provider: ESTHER FRANKLIN Physician Instructions: Reason For Exam: covid 19 pna 12/29/20 18:28 Consult to Wound/ET Nurse [CONS] Routine Reason For Exam: wound eval 12/30/20 16:50 Physical Therapy Evaluation and Treat [CONS] Routine Comment: Reason For Exam: PT for generalized weakness 12/31/20 11:36 Occupational Therapy Evaluate and Treat [CONS] Urgent Comment: Reason For Exam: weakness Primary care physician: DIRECTOR OF HEALTH EDUCATION Hospitalization Reason for admission: Shortness of breath Condition: Stable Hospital course: Spoke to give update to Patient's daughter; Odalis: [phone] Original Note: Assessment and Plan Assessment and plan: 75 YO Female is admitted for coronavirus infection, lung cancer, metabolic encephalopathy, vascular dementia, cerebral Atherosclerosis. Patient is at baseline level of cognition and function. Patient pending care home placement. No acute decompensation overnight. Patient remains medically stable for discharge. Patient is alert with fluent speech but somewhat still confused disoriented. She is lying flat in bed without respiratory distress. She is waiting for subacute rehab placement. Daily clinical course: 12/29/20: Positive for COVID-19, Initiate Covid protocol, consult ID 12/30/20: Continue dexamethasone and remdesivir, wean off O2 as tolerated. ID following, follow inflammatory markers 12/31/20: Noted more left-sided weakness, MRI brain and 2D echo pending -Dexamethasone 6 mg IV/PO daily for 10 days -Remdesivir 200 mg IV q day x 1 followed by 100 mg IV q day x 4 days -Obtain q48-72h inflammatory markers - ferritin, Ddimer, CRP, LDH -Stopped antibiotics due to normal procalcitonin. 01/01/21: Continue remdesivir, and dexamethasone, follow inflammatory markers. Patient on 3 to 4 L nasal cannula O2. Discussed with daughter in details. Per daughter patient was recently diagnosed with [place] cell cancer of the skin for which she was treated. 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 She is being treated at [place] by Dr. Bradley. Patient daughter will gather more information from Dr. Bradley about her current cancer treatment. She does not know the name of the chemotherapy pill that patient was taking daily. Patient last dose of remdesivir is tomorrow. Continue dexamethasone. PT re commended SNF placement. Family will decide about CODE STATUS. 01/05: Patient clinical stable for discharge, she has base line dementia and follows some limited command but overal incoherent speech 01/06: Adjust insulin. Awaiting auth for placement. She is much more alert and awake responsive. Speech is coherent. Stable for discharge 01/07 patient continues to show clinical improvement needing 1 person assist to the bathroom was sitting up. I did a peer to peer this afternoon and facility will accept the patient. Discussed with case management (1) 2019 novel coronavirus infection Current Visit: Yes Status: Acute Plan to address problem: Continue coronavirus protocol, supplemental oxygen as needed, pulse oximetry, nebulizer therapy, supportive care. Patient treated with remdesivir and steroid (2) Vascular dementia Current Visit: Yes Status: Acute Qualifiers: Dementia behavioral disturbance: without behavioral disturbance Qualified Code(s): F01.50 - Vascular dementia without behavioral disturbance Plan to address problem: Verbal prompting, verbal redirection, redirection for confusion as clinically indicated. (3) Cerebral atherosclerosis Current Visit: Yes Status: Acute Plan to address problem: Verbal prompting, verbal redirection, antiplatelet therapy as clinically indicated. (4) Acute encephalopathy superimposed on dementia, resolved Current Visit: Yes Status: Acute Plan to address problem: Supportive care, neuro check, aspiration precautions, fall precautions MRI negative for Acute stroke -- Systemic inflammatory response syndrome (SIRS) All inflammatory markers are elevated IV Decadron initiated Positive for COVID-19, Covid protocol initiated --Acute hypoxic respiratory failure due to COVID-19 pneumonia Empiric antibiotics, albuterol inhalers -- Hypertension Continue antihypertensives and adjust medications -- T2DM (type 2 diabetes mellitus) Continue home insulin and coverage follow hemoglobin A1c -- History of stroke with leftsided weakness Supportive care and physical therapy --h/o dementia, supportive care --Manpreet cell cancer of skin, treated --History of lung cancer with metastasis to brain Diagnosed 3 months back, patient currently on a daily p.o. chemotherapy by Dr. Bradley at [place] Holding chemotherapy for now, patient daughter will get back to Dr. Bradley at [place] to verify when to resume chemotherapy Disposition: [facility] Final Discharge Diagnosis (Prints w/discharge instructions): Acute hypoxic respiratory failure secondary to COVID-19 Time spent for discharge: 35 mins Core Measure Documentation - Palliative Care Palliative Care/ Comfort Measures: Not Applicable - Core Measures Any of the following diagnoses?: none Exam - Physical Exam Narrative exam: General appearance: Present: no acute distress, well-nourished - EENT Eyes: Present: PERRL, EOM intact ENT: hearing intact - Neck Neck: Present: supple - Respiratory Respiratory effort: labored Respiratory: bilateral: diminished - Cardiovascular Rhythm: regular - Extremities Extremities: No edema - Abdominal General gastrointestinal: soft, non-distended, normal bowel sounds Localized gastrointestinal: tender: diffuse - Integumentary Integumentary: Absent: rash - Psychiatric Psychiatric: cooperative - Neurologic Neurologic: other (Chronic left hemiparesis including left lower facial, left arm and left leg weakness. Speech is fluent. Patient is fully alert and conversational no further confusion noted.) - Constitutional Vitals: Temp Pulse Resp BP Pulse Ox 97.7 F 90 18 90/53 94 01/07/21 11:36 01/07/21 11:36 01/07/21 11:36 01/07/21 11:36 01/07/21 11:36 Plan Activity: advance as tolerated, fall precautions Diet: low fat Special Instructions: record daily weights, record daily BP diary Follow up with: PRIMARY CAREMD [Primary Care Provider] - 7 Days THERESE CORNELIUS MD [Staff Physician] - 7 Days Prescriptions: traZODone [Desyrel] 100 mg PO QHS #30 Aspirin 325 mg PO QDAY #30 tablet dexAMETHasone [Dexamethasone] 8 mg PO DAILY #10 tablet Famotidine [Pepcid] 20 mg PO BID #60 tablet Ascorbic Acid [Vitamin C] 1,000 mg PO BID #60 tablet Cholecalciferol (Vitamin D3) [Vitamin D3] 5,000 unit PO DAILY #30 tablet Zinc Sulfate 220 mg PO BID #30 capsule
[2021-01-07] MEDS: COLCHICINE 0.6 MG TAB PO SCH (14:19)
[2021-01-07] MEDS: traZODone 100 MG TAB PO SCH (21:43)
--- NOTE | 2021-01-08 08:46 | Progress Note ---
Assessment and Plan Assessment and plan: 75 YO Female is admitted for coronavirus infection, lung cancer, metabolic encephalopathy, vascular dementia, cerebral Atherosclerosis. Patient is at baseline level of cognition and function. Patient pending detention placement. No acute decompensation overnight. Patient remains medically stable for discharge. Patient is alert with fluent speech but somewhat still confused disoriented. She is lying flat in bed without respiratory distress. She is waiting for subacute rehab placement. Daily clinical course: 12/29/20: Positive for COVID-19, Initiate Covid protocol, consult ID 12/30/20: Continue dexamethasone and remdesivir, wean off O2 as tolerated. ID following, follow inflammatory markers 12/31/20: Noted more left-sided weakness, MRI brain and 2D echo pending -Dexamethasone 6 mg IV/PO daily for 10 days -Remdesivir 200 mg IV q day x 1 followed by 100 mg IV q day x 4 days -Obtain q48-72h inflammatory markers - ferritin, Ddimer, CRP, LDH -Stopped antibiotics due to normal procalcitonin. 01/01/21: Continue remdesivir, and dexamethasone, follow inflammatory markers. Patient on 3 to 4 L nasal cannula O2. Discussed with daughter in details. 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 She is being treated at [facility] by Dr. Bradley. Patient daughter will gather more information from Dr. Bradley about her current cancer treatment. She does not know the name of the chemotherapy pill that patient was taking daily. Patient last dose of remdesivir is tomorrow. Continue dexamethasone. PT recommended SNF placement. Family will decide about CODE STATUS. 01/05: Patient clinical stable for discharge, she has base line dementia and follows some limited command but overal incoherent speech 01/06: Adjust insulin. Awaiting auth for placement. She is much more alert and awake responsive. Speech is coherent. Stable for discharge 01/08: Patient seen and examined please see discharge summary done yesterday no further ideation clinically stable will be going to retirement facility today. (1) 2019 novel coronavirus infection Current Visit: Yes Status: Acute Plan to address problem: Continue coronavirus protocol, supplemental oxygen as needed, pulse oximetry, ne bulizer therapy, supportive care. Patient treated with remdesivir and steroid (2) Vascular dementia Current Visit: Yes Status: Acute Qualifiers: Dementia behavioral disturbance: without behavioral disturbance Qualified Code(s): F01.50 - Vascular dementia without behavioral disturbance Plan to address problem: Verbal prompting, verbal redirection, redirection for confusion as clinically indicated. (3) Cerebral atherosclerosis Current Visit: Yes Status: Acute Plan to address problem: Verbal prompting, verbal redirection, antiplatelet therapy as clinically indicated. (4) Acute encephalopathy superimposed on dementia, resolved Current Visit: Yes Status: Acute Plan to address problem: Supportive care, neuro check, aspiration precautions, fall precautions MRI negative for Acute stroke -- Systemic inflammatory response syndrome (SIRS) All inflammatory markers are elevated IV Decadron initiated Positive for COVID-19, Covid protocol initiated --Acute hypoxic respiratory failure due to COVID-19 pneumonia Empiric antibiotics, albuterol inhalers -- Hypertension Continue antihypertensives and adjust medications -- T2DM (type 2 diabetes mellitus) Continue home insulin and coverage follow hemoglobin A1c -- History of stroke with leftsided weakness Supportive care and physical therapy --h/o dementia, supportive care --Manpreet cell cancer of skin, treated --History of lung cancer with metastasis to brain Diagnosed 3 months back, patient currently on a daily p.o. chemotherapy by Dr. Bradley at [facility] Holding chemotherapy for now, patient daughter will get back to Dr. Bradley at [facility] to verify when to resume chemotherapy History Interval history: Patient seen and examined resting comfortably no new complaints much more awake and alert today. Hospitalist Physical - Physical exam Narrative exam: General appearance: Present: no acute distress, well-nourished - EENT Eyes: Present: PERRL, EOM intact ENT: hearing intact - Neck Neck: Present: supple - Respiratory Respiratory effort: labored Respiratory: bilateral: diminished - Cardiovascular Rhythm: regular - Extremities Extremities: No edema - Abdominal General gastrointestinal: soft, non-distended, normal bowel sounds Localized gastrointestinal: tender: diffuse - Integumentary Integumentary: Absent: rash - Psychiatric Psychiatric: cooperative - Neurologic Neurologic: other (Chronic left hemiparesis including left lower facial, left arm and left leg weakness. Speech is fluent. Patient is fully alert and conversational no further confusion noted.) - Constitutional Vitals: Temp Pulse Resp BP Pulse Ox 98.0 F 79 16 105/62 87 01/08/21 04:43 01/08/21 04:43 01/08/21 04:43 01/08/21 04:43 01/08/21 04:43 General appearance: Present: no acute distress, well-nourished, other (Alert but confused) HEART Score - HEART Score Risk factors: 1-2 risk factors Troponin: Troponin T < 0.010 ng/mL (0.00-0.029) 12/28/20 13:37 Troponin: < normal limit - Critical Actions Critical Actions: 0-3 pts:0.9-1.7%risk of adverse cardiac event.Candidate for discharge Results - Labs CBC & Chem 7: 12/29/20 05:37 01/01/21 05:56 Labs: Laboratory Last Values WBC 4.3 K/mm3 (4.5-11.0) L 12/29/20 05:37 RBC 4.04 M/mm3 (3.65-5.03) 12/29/20 05:37 Hgb 10.7 gm/dl (10.1-14.3) 12/29/20 05:37 Hct 32.4 % (30.3-42.9) 12/29/20 05:37 MCV 80 fl (79-97) 12/29/20 05:37 MCH 27 pg (28-32) L 12/29/20 05:37 MCHC 33 % (30-34) 12/29/20 05:37 RDW 17.2 % (13.2-15.2) H 12/29/20 05:37 Plt Count 205 K/mm3 (140-440) 12/29/20 05:37 Lymph % (Auto) 9.5 % (13.4-35.0) L 12/29/20 05:37 [place] % (Auto) 9.8 % (0.0-7.3) H 12/29/20 05:37 Eos % (Auto) 0.8 % (0.0-4.3) 12/29/20 05:37 Baso % (Auto) 0.4 % (0.0-1.8) 12/29/20 05:37 Lymph # (Auto) 0.4 K/mm3 (1.2-5.4) L 12/29/20 05:37 [place] # (Auto) 0.4 K/mm3 (0.0-0.8) 12/29/20 05:37 Eos # (Auto) 0.0 K/mm3 (0.0-0.4) 12/29/20 05:37 Baso # (Auto) 0.0 K/mm3 (0.0-0.1) 12/29/20 05:37 Seg Neutrophils % 79.5 % (40.0-70.0) H 12/29/20 05:37 Seg Neutrophils # 3.4 K/mm3 (1.8-7.7) 12/29/20 05:37 APTT 34.2 Sec. (24.2-36.6) 12/28/20 13:37 D-Dimer 1149.31 ng/mlDDU (0-234) H 01/01/21 23:23 Sodium 136 mmol/L (137-145) L 01/01/21 05:56 Potassium 3.9 mmol/L (3.6-5.0) 01/01/21 05:56 Chloride 101.5 mmol/L (98-107) 01/01/21 05:56 Carbon Dioxide 23 mmol/L (22-30) 01/01/21 05:56 Anion Gap 15 mmol/L 01/01/21 05:56 BUN 21 mg/dL (7-17) H 01/01/21 05:56 Creatinine 0.8 mg/dL (0.6-1.2) 01/01/21 05:56 Estimated GFR > 60 ml/min 01/01/21 05:56 BUN/Creatinine Ratio 26 % 01/01/21 05:56 Glucose 195 mg/dL (65-100) H 01/01/21 05:56 POC Glucose 136 mg/dL (70-105) H 01/07/21 21:30 Lactic Acid 0.90 mmol/L (0.7-2.0) 12/28/20 16:02 Calcium 8.5 mg/dL (8.4-10.2) 01/01/21 05:56 Ferritin 1039.0 ng/mL (10.0-200.0) H 01/01/21 23:23 Total Bilirubin 0.30 mg/dL (0.1-1.2) 01/01/21 05:56 AST 27 units/L (5-40) 01/01/21 05:56 ALT 12 units/L (7-56) 01/01/21 05:56 Alkaline Phosphatase 78 units/L (35-129) 01/01/21 05:56 Lactate Dehydrogenase 317 units/L (91-180) H 01/01/21 23:23 Troponin T < 0.010 ng/mL (0.00-0.029) 12/28/20 13:37 C-Reactive Protein 13.30 mg/dL (0.00-1.30) H 01/01/21 23:23 Total Protein 6.0 g/dL (6.3-8.2) L D 01/01/21 05:56 Albumin 2.5 g/dL (3.9-5) L 01/01/21 05:56 Albumin/Globulin Ratio 0.7 % 01/01/21 05:56 Triglycerides 104 mg/dL (2-149) 01/01/21 09:14 Cholesterol 88 mg/dL (50-199) 01/01/21 09:14 LDL Cholesterol Direct 41 mg/dL (50-130) L 01/01/21 09:14 HDL Cholesterol 24 mg/dL (40-59) L 01/01/21 09:14 Cholesterol/HDL Ratio 3.66 % 01/01/21 09:14 Procalcitonin 1.94 ng/mL (<0.15) 01/01/21 23:23 Urine Color Yellow (Yellow) 01/03/21 Unknown Urine Turbidity Clear (Clear) 01/03/21 Unknown Urine pH 5.0 (5.0-7.0) 01/03/21 Unknown Ur Specific [place] 1.016 (1.003-1.030) 01/03/21 Unknown Urine Protein 30 mg/dl mg/dL (Negative) 01/03/21 Unknown Urine Glucose (UA) 150 mg/dL (Negative) 01/03/21 Unknown Urine Ketones Neg mg/dL (Negative) 01/03/21 Unknown Urine Blood Neg (Negative) 01/03/21 Unknown Urine Nitrite Neg (Negative) 01/03/21 Unknown Urine Bilirubin Neg (Negative) 01/03/21 Unknown Urine Urobilinogen < 2.0 mg/dL (<2.0) 01/03/21 Unknown Ur Leukocyte Esterase Neg (Negative) 01/03/21 Unknown Urine WBC (Auto) 3.0 /HPF (0.0-6.0) 01/03/21 Unknown Urine RBC (Auto) 13.0 /HPF (0.0-6.0) 01/03/21 Unknown U Epithel Cells (Auto) 1.0 /HPF (0-13.0) 01/03/21 Unknown Urine Mucus Few /HPF 12/28/20 Unknown Coronavirus (PCR) Positive (Negative) A 12/29/20 08:00 [place]/IV: Voiding Method Diaper Active Medications - Current Medications Current Medications: Generic Name Dose Route Start Last Admin Trade Name Freq PRN Reason Stop Dose Admin Acetaminophen 650 mg 12/28/20 22:19 12/31/20 10:54 Acetaminophen 325 Mg Tab PO 650 mg Q4H PRN Administration Pain MILD(1-3)/Fever >100.5/ALBARADO Ascorbic Acid 1,000 mg 12/30/20 10:00 01/07/21 21:42 Ascorbic Acid 500 Mg Tab PO 1,000 mg BID SHOBHA Administration Aspirin 325 mg 01/01/21 10:00 01/07/21 09:30 Aspirin 325 Mg Tab PO 325 mg QDAY SHOBHA Administration Cholecalciferol 5,000 unit 12/30/20 10:00 01/07/21 09:32 Cholecalciferol (Vit D3) 5,000 Unit Tab PO 5,000 unit DAILY SHOBHA Administration Colchicine 0.6 mg 12/29/20 18:00 01/07/21 14:19 Colchicine 0.6 Mg Tab PO 0.6 mg DAILY SHOBHA Administration Dextrose 0 ml 12/28/20 22:48 Dextrose 50% In Water (25gm) 50 Ml Syringe IV Q30MIN PRN Hypoglycemia Protocol Famotidine 20 mg 12/29/20 22:00 01/07/21 21:43 Famotidine 20 Mg Tab PO 20 mg BID SHOBHA Administration Heparin Sodium (Porcine) 5,000 unit 12/29/20 10:00 01/07/21 21:43 Heparin 5,000 Unit/1 Ml Vial SUB-Q 5,000 unit Q12HR SHOBHA Administration Insulin Human Lispro 0 unit 12/29/20 07:30 01/07/21 21:43 Insulin Lispro 100 Unit/Ml SUB-Q Not Given ACHS [facility] Protocol Insulin Human NPH 20 unit 01/06/21 10:00 01/07/21 16:51 Insulin Nph, Human 100 Unit/1 Ml SUB-Q Not Given BIDDIAB [facility] Lisinopril 2.5 mg 12/29/20 10:00 01/07/21 09:30 Lisinopril 5 Mg Tab PO 2.5 mg QDAY SHOBHA Administration Magnesium Oxide 400 mg 12/29/20 10:00 01/07/21 09:30 Magnesium Oxide 400 Mg Tab PO 400 mg QDAY SHOBHA Administration Metoclopramide HCl 10 mg 12/28/20 22:22 Metoclopramide 10 Mg/2 Ml Inj IV Q6H PRN Nausea And Vomiting Morphine Sulfate 2 mg 12/28/20 22:22 Morphine 2 Mg/1 Ml Inj IV Q4H PRN Pain, Moderate (4-6) Ondansetron HCl 4 mg 12/28/20 22:19 01/08/21 06:13 Ondansetron 4 Mg/2 Ml Inj IV 4 mg Q8H PRN Administration Nausea And Vomiting Sodium Chloride 10 ml 12/28/20 23:00 01/07/21 21:44 Sodium Chloride 0.9% 10 Ml Flush Syringe IV 10 ml BID SHOBHA Administration Sodium Chloride 10 ml 12/28/20 22:19 12/28/20 23:10 Sodium Chloride 0.9% 10 Ml Flush Syringe IV 10 ml PRN PRN Administration LINE FLUSH Trazodone HCl 100 mg 12/29/20 22:00 01/07/21 21:43 Trazodone 100 Mg Tab PO 100 mg QHS SHOBHA Administration Zinc Sulfate 220 mg 12/30/20 10:00 01/07/21 21:42 Zinc Sulfate 220 Mg Cap PO 220 mg BID SHOBHA Administration Nutrition/Malnutrition Assess - Dietary Evaluation Nutrition/Malnutrition Findings: Nutrition Notes Start: 12/29/20 14:56 Freq: Status: Active Protocol: Document 01/05/21 16:51 MAHESH (Rec: 01/05/21 17:23 MAHESH [id number]) Nutrition Notes Need for Assessment generated from: Order,LOS Initial or Follow up Reassessment Current Diagnosis Diabetes,Hypertension Other Pertinent Diagnosis COVID-19, Dementia Current Diet Consistent Carbohydrate - Pureed- Diet (since B 01/01). Labs/Tests 01/01: Na 136, BUN 21, Glu 195 . Pertinent Medications 01/05: Nutritionally unremarkable, Vit C, Vit D3, Zn. Height 5 ft 1 in Weight 67.8 kg [place] Body Weight (kg) 47.72 BMI 28.2 Weight Status Overweight Subjective/Other Information Pt with initial stage of dementia, positive for COVID- 19. Pt is no adequate subject for nutrition education, has assisted living. Percent of energy/protein needs met: Consistent Carbohydrate - Pureed- Diet provides for energy/protein needs (2061 Kcal/91 G), during LOS. Burn Absent Trauma Absent GI Symptoms None Difficulty In Swallowing,Chewing Food Allergy No Skin Integrity/Comment Integumentary; clear, warm, dry. Current % PO Good (75-100%) Minimum of two criteria No physical signs of malnutrition #2 Nutrition Diagnosis Swallowing difficulty,Biting/ Chewing (masticatory) difficulty Etiology Pt diminished ability to chew and swallow food probably associated to current condition. As Evidenced by Signs and Symptoms Since preed diet was provided PO intake of meals was improved as per ADL notes. #1 Nutrition Diagnosis Altered nutrition-related laboratory values Comments: Pt is no adequate subject for nutrition education, has assisted living. Etiology Pt Hx of T2DM and HTN now exacerbated with SIRS and possible COVID-19 diagnosis As Evidenced by Signs and Symptoms Chemistry lab values out of acceptable ranges, and MD diagnosis Is patient on ventilator? No Is Patient Ambulatory and/or Out of Bed No REE-([facility]-confined to bed) 1327.032 Kcal/Kg value to use for calculation 29 Approximate Energy Requirements Using 1966 kcal/Kg Calculation Used for Recommendations Kcal/kg Additional Notes Protein: 0.8-1.0 g/Kg/day; 38- 48 g/day; 152-192 Kcal/day ( from IBW). Fluids: 1.0 ml/Kcal, or as per MD. Nutrition Intervention Change Diet Order: Continue prescribed Consistent Carbohydrate -pureed- Diet during LOS. Goal #1 Maintain body weight within +/ -3% of current BWt during LOS. Goal #2 Reach and maintain acceptable chemistry lab values during LOS. Follow-Up By: 01/12/21 Additional Comments Continue monitoring acceptance of food, % PO intake of meals , Hydration, and BM.
[2021-01-08] MEDS: INSULIN NPH, HUMAN 100 UNIT/1 ML SUB-Q SCH (08:47)
[2021-01-08] MEDS: INSULIN LISPRO 100 UNIT/ML SUB-Q SCH ×2 (08:47→13:35)
[2021-01-08] MEDS: CHOLECALCIFEROL (VIT D3) 5,000 UNIT TAB PO SCH (09:23)
[2021-01-08] MEDS: FAMOTIDINE 20 MG TAB PO SCH (09:23)
[2021-01-08] MEDS: ZINC SULFATE 220 MG CAP PO SCH (09:23)
[2021-01-08] MEDS: ASPIRIN 325 MG TAB PO SCH (09:23)
[2021-01-08] MEDS: ASCORBIC ACID 500 MG TAB PO SCH (09:23)
[2021-01-08] MEDS: MAGNESIUM OXIDE 400 MG TAB PO SCH (09:23)
[2021-01-08] MEDS: LISINOPRIL 5 MG TAB PO SCH (09:23)
[2021-01-08] MEDS: HEPARIN 5,000 UNIT/1 ML VIAL SUB-Q SCH (10:31)
[2021-01-08] MEDS: COLCHICINE 0.6 MG TAB PO SCH (13:25)
[2021-01-08 13:36] VITALS: BP 102/58
== END 2021-01-08 16:13 | DRG 177 ==
LOC: ED 12:37 → 3A 15:03
PROVIDERS: ADMIT Internal Medicine; ATTEND Internal Medicine
PROC: 8E0ZXY6 Isolation (ICD-10-PCS; 2020-12-28)
PROC: XW033E5 Introduction of Remdesivir Anti-infective into Peripheral Vein, Percutaneous Approach, New Technology Group 5 (ICD-10-PCS; principal; 2020-12-29)
DX: U07.1 COVID-19 (principal); J96.01 Acute respiratory failure with hypoxia; G93.41 Metabolic encephalopathy; R65.10 Systemic inflammatory response syndrome (SIRS) of non-infectious origin without acute organ dysfunction; C78.00 Secondary malignant neoplasm of unspecified lung; F01.50 Vascular dementia, unspecified severity, without behavioral disturbance, psychotic disturbance, mood disturbance, and anxiety; J44.9 Chronic obstructive pulmonary disease, unspecified; I50.9 Heart failure, unspecified; I11.0 Hypertensive heart disease with heart failure; E11.9 Type 2 diabetes mellitus without complications; Z86.73 Personal history of transient ischemic attack (TIA), and cerebral infarction without residual deficits; Z87.891 Personal history of nicotine dependence; C4A.9 Merkel cell carcinoma, unspecified
CPT/HCPCS: 36415; 70450; 70496; 70498; 70551; 71045; 74176; 80053; 80061; 81001; 82140; 82728; 82947; 82962; 83615; 84145; 84484; 85025; 85379; 85730; 86140; 87040; 87086; 93005; 94760; G0378; J0456; J0696; J1100; J1644; J1815; J2405; J7030; J7050; Q9967; U0003